=== PATIENT | female | born 1935 | race Caucasian/White ===

== ENCOUNTER 2016-10-05 16:37 | Emergency (ER) | payer OTHER ==
[~2016-10-05] VITALS: Ht 154.9 cm; Wt 58.0 kg
[~2016-10-05 16:37] MED LIST: AMLO-110 PO; ASPI81TA28 PO; ERGO1CAP35 PO; LORA-741 PO; METO50TA16 PO; NTRGSL/4 UT; PANT40TA PO; SIMV20TA2 PO
[2016-10-05 16:50] VITALS: TEMP 36.4; Ht 154.9 cm; Wt 58.0 kg
[2016-10-05] MEDS ORDERED: METOPROLOL TARTRATE 50 MG TAB PO STA (16:53)
[2016-10-05] MEDS ORDERED: LPR25 PO (17:00)
[2016-10-05] MEDS ORDERED: SALI0.6510 NAE (17:00)
[2016-10-05] MEDS ORDERED: ERGO500037 PO (17:00)
--- NOTE | 2016-10-05 17:13 | EMERGENCY ROOM VISIT NOTE ---
History Report prepared by Ab: Henry Driver Under the Supervision of: Dr. Sky Saldana M.D. First contact with patient: 16:43 Chief Complaint: HYPERTENSION Stated Complaint: HTN History of Present Illness The patient is an 80 year old female who presents to the Emergency Room with concerns over a high blood pressure reading that she noticed shortly prior to arrival. The patient was meeting with her primary care physician human resources office assistant today for a routine checkup. At this visit her systolic blood pressure was in the 230's systolic and 110's diastolic. The PA suggested she come to the emergency department immediately. The patient notes that she forgot to take her Ativan this morning before her visit, and that her blood pressure usually rises when she goes to see her physician. She also takes Lisinopril, Metoprol, and Baby Aspirin as a blood thinner. She did take her Lisinopril today and usually takes her Metoprol at 1700. The patient denies any chest pain or shortness of breath. Source of History: patient Onset: Shortly TELEPHONE MESSENGER Position: other (Blood Pressure) Quality: other (Hypertension) Associated Symptoms: No SOB, No chest pain Review of Systems All systems have been listed, reviewed, and are negative other than those previously mentioned. Please see Additional Medical History Sheet. Past Medical & Surgical Medical Problems: (1) Coronary artery disease (2) Dyslipidemia (3) Hypertension (4) Stented coronary artery Surgical Problems: (1) Status post coronary artery stent placement Family History Cancer Heart disease Hypertension Social History Smoking Status: Never Smoker Alcohol Use: none Marital Status: Housing Status: lives alone Occupation Status: retired Current/Historical Medications Scheduled Aspirin (Aspirin Ec), 81 MG PO DAILY Lisinopril (Lisinopril), 20 MG PO DAILY Metoprolol Tartrate (Lopressor), 25 MG PO BID Nitroglycerin (Nitrostat), 0.4 MG UT PRN Pantoprazole (Protonix), 40 MG PO QAM Ranitidine (Zantac), 150 MG PO BID Simvastatin (Zocor), 20 MG PO QPM Scheduled PRN Lorazepam (Ativan), 0.5 MG PO Q6 PRN for Anxiety Allergies Coded Allergies: Metoprolol (Verified Adverse Reaction, Unknown, TOPROL RXN (CHEST HEAVINESS) LOPRESSOR [place], 10/13/15) ABLE TO TAKE LOPRESSOR, EXTENDED RELEASE CAUSED CHEST "HEAVINESS" Can take metoprolol tartrate. Physical Exam Vital Signs Date Time Temp Pulse Resp B/P Pulse Ox O2 Delivery O2 Flow Rate FiO2 10/05/16 19:30 60 16 198/93 100 10/05/16 18:45 58 16 191/75 95 Room Air 10/05/16 18:30 57 16 193/79 10/05/16 18:00 61 16 178/74 10/05/16 17:45 218/90 10/05/16 17:30 57 16 204/78 10/05/16 17:00 70 16 190/76 99 Room Air 10/05/16 16:54 67 10/05/16 16:50 36.4 69 16 215/91 97 Room Air Physical Exam GENERAL: Patient awake, alert, oriented x 3. Patient follows commands. Patient does not appear toxic. Patient is adequately hydrated and well- nourished. SKIN: No erythema, pallor, cyanosis or rash HEENT: Normal head, pupils equal, reactive to light and accommodation. Ears Hearing aid in the right ear, left is normal. Mucous membranes are dry. Oral cavity and posterior pharynx appear normal. Neck: Without adenopathy, no neck vein distention. LUNGS: Clear to auscultation. No wheezes, no rales, no rhonchi. HEART: No murmurs. No gallops. No rubs ABDOMEN: No masses, no rebound, no hepatomegaly or splenomegaly. EXTREMITIES: No signs of trauma. No pedal or pretibial edema. No calf or thigh tenderness. NEUROLOGIC: Cranial nerves II-XII within normal limits. No gross motor sensory function deficits. Medical Decision & Procedures Laboratory Results 10/05/16 17:21 10/05/16 17:21 Test 10/05/16 17:21 Red Blood Count 4.63 M/uL (4.2-5.4) Mean Corpuscular Volume 86.8 fL (80-100) Mean Corpuscular Hemoglobin 30.2 pg (25-34) Mean Corpuscular Hemoglobin Concent 34.8 g/dl (32-36) RDW Standard Deviation 40.9 fL (36.4-46.3) RDW Coefficient of Variation 12.8 % (11.5-14.5) Mean Platelet Volume 10.4 fL (7.4-10.4) Anion Gap 11.0 mmol/L (3-11) Est Creatinine Clear Calc Drug Dose 40.6 ml/min Estimated GFR () 70.4 Estimated GFR (Non- 60.8 BUN/Creatinine Ratio 20.7 (10-20) Calcium Level 9.7 mg/dl (8.5-10.1) Troponin I < 0.015 ng/ml (0-0.045) Laboratory results as stated above per my review. Medications Administered Medications (Trade) Dose Ordered Sig/Zohra Route Start Time Stop Time Status Last Admin Dose Admin Metoprolol Tartrate (Lopressor Tab) 25 mg NOW STAT PO 10/05/16 16:53 10/05/16 16:54 DC 10/05/16 16:58 25 MG Lorazepam (Ativan Tab) 0.5 mg NOW STAT SL 10/05/16 17:49 10/05/16 17:51 DC 10/05/16 17:56 0.5 MG ECG Indication: other (Hypertension) Rate (beats per minute): 69 Rhythm: normal sinus Findings: PAC, no acute ischemic change ED Course 1643: Past medical records reviewed. The patient was evaluated in room C9. A complete history and physical examination was performed. 1652: Ordered Metoprolol 25 mg PO. 1742: I checked on the patient at this time, she is improving and her blood pressure is decreasing. I will order Lorazepam. 1748: Ordered Lorazepam 0.5 mg SL. 2000: Upon reevaluation, the patient appeared to have improvement of her symptoms. I discussed today's findings with her. She verbalized agreement of the treatment plan. The patient was discharged home. Medical Decision Differential Diagnosis includes: Hypertension out of control, anxiety, metabolic abnormality, acute cardiac condition. The patient was seen earlier today by a PA and sent here for elevated blood pressure. The patient appears anxious. Multiple labs and EKG were performed here. Please see above. The patient has no EKG changes. Troponin was not elevated. Electrolytes appear to be within normal range. The patient is anxious. The patient was given 0.5 additional Ativan and she was given her normal dose of metoprolol. The patient's blood pressure did come down without any further intervention. I do not believe she requires further intervention at this time. Impression Primary Impression: Hypertension Scribe Attestation The scribe's documentation has been prepared under my direction and personally reviewed by me in its entirety. I confirm that the note above accurately reflects all work, treatment, procedures, and medical decision making performed by me. Departure Information Dispostion Home / Self-Care Referrals Fannie Sandoval M.D. (MEDICAL) (PCP) Patient Instructions My [facility] Additional Instructions Continue all of your current medications without change. Follow-up with your family physician.
[2016-10-05 17:32] LABS: HEMATOCRIT 40.2 % (37-47); MEAN CELL VOLUME 86.8 fL (80-100); MEAN CORPUSCULAR HEMOGLOBIN 30.2 pg (25-34); MEAN CORPUSCULAR HGB CONC 34.8 g/dl (32-36); MEAN PLATELET VOLUME 10.4 fL (7.4-10.4); PLATELET COUNT 290 K/uL (130-400); RED BLOOD COUNT 4.63 M/uL (4.2-5.4); WHITE BLOOD COUNT 4.91 K/uL (4.8-10.8)
[2016-10-05 17:49] LABS: BLOOD UREA NITROGEN 18 mg/dl (7-18); BUN/CREATININE RATIO 20.7 (10-20); CALCIUM 9.7 mg/dl (8.5-10.1); CARBON DIOXIDE 24 mmol/L (21-32); CHLORIDE 102 mmol/L (98-107); CREATININE 0.89 mg/dl (0.60-1.20); GLUCOSE 97 mg/dl (70-99); POTASSIUM 3.9 mmol/L (3.5-5.1); SODIUM 137 mmol/L (136-145)
[2016-10-05] MEDS ORDERED: LORAZEPAM 0.5 MG TAB SL STA (17:49)
[2016-10-05] MEDS ORDERED: ZNTT/150 PO (18:39)
[2016-10-05 19:30] VITALS: BP 198/93; PULSE 60; O2SAT 100
[2016-10-05] MEDS ORDERED: LSN20 PO (20:12)
== END 2016-10-05 19:31 | disposition home or self-care (01) ==
LOC: EDBD 16:37 → C.EDC 16:38
DX: I10 Essential (primary) hypertension (principal); I25.10 Atherosclerotic heart disease of native coronary artery without angina pectoris; Z79.82 Long term (current) use of aspirin; Z95.5 Presence of coronary angioplasty implant and graft; Z82.49 Family history of ischemic heart disease and other diseases of the circulatory system

== ENCOUNTER 2016-12-15 17:48 | Emergency (ER) | payer OTHER ==
[~2016-12-15] VITALS: Ht 154.9 cm; Wt 57.5 kg
[~2016-12-15 17:48] MED LIST changes: -AMLO-110 PO; -ERGO1CAP35 PO; +LPR25 PO; +LSN20 PO; -METO50TA16 PO; +ZNTT/150 PO
[2016-12-15 17:56] VITALS: BP 207/85; PULSE 61; TEMP 36.4; O2SAT 98; Ht 154.9 cm; Wt 57.5 kg
--- NOTE | 2016-12-15 19:37 | DIAGNOSTIC IMAGING REPORT ---
LUMBAR SPINE 5 VIEWS CLINICAL HISTORY: Chronic low back pain. Left lower extremity radiculopathy. FINDINGS: 5 views of the lumbar spine are obtained. No prior studies are available for comparison at the time of dictation. The skeletal structures are osteopenic. There is no radiographic evidence of acute fracture or malalignment. Vertebral body height and alignment are maintained at the lumbar spine. There is straightening of the lumbar lordosis with reversal centered at L2-L3. There is moderate lumbar levocurvature centered at L3-L4. The transverse and spinous processes are grossly intact. There is no evidence of spondylolysis. Anterior and lateral marginal osteophytes are seen throughout. There is advanced facet arthropathy at the mid to lower lumbar region. Moderate to advanced degenerative disc space narrowing seen at all levels. Degenerative endplate sclerosis is seen at L2-L3 and L3-L4. The visualized bony pelvis appears intact. There is severe constipation. No bowel obstruction is identified. There is moderate atherosclerotic calcification of the abdominal aorta. Cardiomegaly is noted in the lower chest. IMPRESSION: 1. No acute bony abnormality is seen involving the lumbosacral spine. 2. Osteopenia with lumbosacral spondylosis and scoliosis as detailed above. 3. Severe constipation. Dictated: 12/15/2016 7:27 PM Transcribed: 12/15/2016 7:37 PM [email or web address] Electronically signed by: Augustin Zamudio M.D. 12/15/2016 7:40 PM Dictated Date/Time: 12/15/2016 7:27 PM
--- NOTE | 2016-12-15 20:03 | EMERGENCY ROOM VISIT NOTE ---
ED Visit Note First contact with patient: 18:03 CHIEF COMPLAINT: Low back pain 3 weeks HISTORY OF PRESENT ILLNESS: Patient is an 80-year-old white female who presents to the emergency department for evaluation of low back pain radiating into the left leg times almost 3 weeks. She states that about 3 weeks ago she was emptying some overhead cabinets. She was climbing up and down on a chair and lifting and bending and packing up boxes. She did not note pain at that time, and denies any falls or direct trauma to her back. She states that the following day she noted pain in her low left back. It progressively worsens, and began to radiate into her buttocks and in the last 2 days has begun to radiate down her entire left leg to her ankle. She notes that the pain makes it difficult for her to walk. She reports some associated numbness and tingling in her left leg, but denies weakness. She has tried taking a few doses of Tylenol, and tried warm compresses and hot showers. She denies any bowel or bladder incontinence. She reports a history of spine surgery about 2 years ago. She tried calling her doctor 2 days to see if she could take NSAIDs , but could not get through initially. She does have an appointment with her PCP in 2 days. She also spoke with her surgeon in [place] who recommended that she have an MRI, and that he could see her in follow-up. She presently rates her discomfort a 7/10. She has not had any acetaminophen in 8 hours. She denies any abdominal pain. No nausea or vomiting or urinary symptoms. She reports problems with constipation for which she takes milk of magnesia. REVIEW OF SYSTEMS: Review of systems as per HPI. All other systems reviewed were negative. 10 systems reviewed. PMH: Electronic medical records are reviewed and summarized as above/below. See Problem List. SOCIAL HISTORY: Patient lives at home. PHYSICAL EXAM: Vital Signs: Reviewed Nurse's notes. Blood pressure in triage 207/85. CONSTITUTIONAL: Patient is a well-appearing 80-year-old white female who is awake and alert and seated on the chair in no acute distress. There is slight discomfort with position changes. NECK: No bruits auscultated. Supple without lymphadenopathy. No thyromegaly. No meningeal signs. Full active range of motion without discomfort. CARDIOVASCULAR: Regular rate and rhythm, with normal S1 and S2, no murmur or gallop or rub is heard. No carotid bruits auscultated. No JVD. Peripheral pulses easily palpable. RESPIRATORY: Breath sounds equal and clear to auscultation without wheezes, rales, or rhonchi heard. Full and equal chest expansion without accessory muscle use or retractions. ABDOMEN: Bowel sounds are present. Abdomen is soft, nontender and nondistended. INTEGUMENTARY: No lesions or rash, normal skin turgor. LYMPH: No lymphadenopathy. SPINE: Examination of the patient's back does not demonstrate any ecchymosis, abrasions or outward signs of trauma. Well-healed midline lumbar surgical scar. No erythema, increased warmth or induration. Patient has no midline discomfort to palpation over the lumbar spine. She has discomfort low in the left pelvis, over the SI joint. She has pain over the left greater trochanter as well. She has increased pain with range of motion including rotation and flexion. EXTREMITIES: Leg lengths are symmetrical. Negative logroll bilaterally. Normal strength including dorsi-flexion and plantar flexion of the great toes and ankles and flexion and extension of the knees and flexion of the hips. Negative bilateral straight leg raise testing. Hip range of motion is equal and symmetrical bilaterally. Lower extremity DTRs are equal and symmetrical bilaterally. Distal pulses are easily palpable. Sensation light touch is intact over the lower extremities bilaterally. EMERGENCY DEPARTMENT COURSE: The patient was seen and evaluated as above. Her old records are reviewed. Her most recent visits were due to uncontrolled hypertension. The patient is noted to be hypertensive in triage. She reports that she did just take her evening doses of metoprolol 25 mg and Ativan 0.5 mg. Patient reports that in instances where her blood pressure is elevated, she can either take a second dose of lisinopril 20 mg, take a half of her metoprolol 25 mg. After discussing this with the patient, she elected to take her lisinopril 20 mg orally. The patient declined medication for discomfort. Lumbar spine x-rays were obtained, and the findings were noted below. X-ray findings were reviewed with the patient. She has radicular symptoms into her left leg, but does not have any physical exam findings to indicate acute cord compression or cauda equina syndrome. She has some pain over the greater trochanter and over the SI joint. Differential diagnoses entertained includes degenerative disc disease, disc herniation, sacroiliitis, trochanteric bursitis, sciatica, among others. Given her age and comorbidities, patient was encouraged to use acetaminophen. NSAIDs were deferred given her cardiac disease, and likely chronic kidney disease due to her poorly controlled hypertension. Narcotics were felt to be ill advised due to the patient's age, and her underlying constipation. The patient has an appointment with her PCP in 2 days. She will likely require MRI, and has been in touch with her spine surgeon. She was educated on the worrisome signs or symptoms for which she should return to the emergency department. The patient unfortunately left prior to receiving discharge instructions and her blood pressure could not be rechecked prior to discharge. She does have a history of poorly controlled hypertension, and while her blood pressure was elevated in the emergency department, I do not suspect that this indicates a hypertensive emergency. LUMBAR SPINE 5 VIEWS CLINICAL HISTORY: Chronic low back pain. Left lower extremity radiculopathy. FINDINGS: 5 views of the lumbar spine are obtained. No prior studies are available for comparison at the time of dictation. The skeletal structures are osteopenic. There is no radiographic evidence of acute fracture or malalignment. Vertebral body height and alignment are maintained at the lumbar spine. There is straightening of the lumbar lordosis with reversal centered at L2-L3. There is moderate lumbar levocurvature centered at L3-L4. The transverse and spinous processes are grossly intact. There is no evidence of spondylolysis. Anterior and lateral marginal osteophytes are seen throughout. There is advanced facet arthropathy at the mid to lower lumbar region. Moderate to advanced degenerative disc space narrowing seen at all levels. Degenerative endplate sclerosis is seen at L2-L3 and L3-L4. The visualized bony pelvis appears intact. There is severe constipation. No bowel obstruction is identified. There is moderate atherosclerotic calcification of the abdominal aorta. Cardiomegaly is noted in the lower chest. IMPRESSION: 1. No acute bony abnormality is seen involving the lumbosacral spine. 2. Osteopenia with lumbosacral spondylosis and scoliosis as detailed above. 3. Severe constipation. Problem List Medical Problems: (1) Anxiety Status: Chronic (2) Chest pain Status: Resolved (3) Coronary artery disease Status: Chronic (4) Dyslipidemia Status: Chronic (5) Esophageal Reflux Status: Chronic (6) Hypertension Status: Chronic (7) Stented coronary artery Status: Chronic (8) Tachycardia Status: Resolved Surgical Problems: (1) Hx of lumbosacral spine surgery Status: Resolved (2) Percutaneous Translum Coron Angioplasty Status Status: Chronic (3) Status post coronary artery stent placement Permanent Comment: [facility] to LAD and left circ [place] 2005 or 2006 Status: Chronic Current/Historical Medications Scheduled Aspirin (Aspirin Ec), 81 MG PO DAILY Lisinopril (Lisinopril), 20 MG PO DAILY Metoprolol Tartrate (Lopressor), 25 MG PO BID Nitroglycerin (Nitrostat), 0.4 MG UT PRN Pantoprazole (Protonix), 40 MG PO QAM Ranitidine (Zantac), 150 MG PO BID Simvastatin (Zocor), 20 MG PO QPM Scheduled PRN Lorazepam (Ativan), 0.5 MG PO Q6 PRN for Anxiety Allergies Coded Allergies: Metoprolol (Verified Adverse Reaction, Unknown, TOPROL RXN (CHEST HEAVINESS) LOPRESSOR [place], 10/13/15) ABLE TO TAKE LOPRESSOR, EXTENDED RELEASE CAUSED CHEST "HEAVINESS" Can take metoprolol tartrate. Vital Signs Date Time Temp Pulse Resp B/P Pulse Ox O2 Delivery O2 Flow Rate FiO2 12/15/16 17:56 36.4 61 16 207/85 98 Room Air Departure Information Impression Primary Impression: Lumbar back pain with radiculopathy affecting left lower extremity Referrals Namita Adler D.O. (PCP) Patient Instructions My [facility] Additional Instructions Acetaminophen(Tylenol) may be used for fever or pain. Use 1000mg every six hours as needed. Avoid using more than 3000mg in a 24 hour period. This medication can be taken if you need to drive, work, or perform activities which may be dangerous when taking narcotic pain medication. Rest and avoid heavy lifting until your symptoms resolve and then gradually return to full activity. A good rule of thumb is if it hurts your back to perform a certain activity, then it should be avoided until you are healthy again. A heating pad, warm compresses, or a hot shower may help with tight muscles and can be done several times a day as needed. Continue current medications. Return to the ER immediately for any numbness, tingling, severe pain, loss of control of your bowels or bladder, inability to walk, or as needed. Follow up with your primary care physician on Tuesday as scheduled for recheck of your current condition. Follow-up with your surgeon for further care and management.
--- NOTE | 2016-12-15 23:19 | EMERGENCY ROOM VISIT NOTE ---
ED Visit Note First contact with patient: 18:03 I have personally evaluated this patient examined her and reviewed the pertinent labs and data. I have discussed the case with Rin Luna, the physician statistical assistant and agree with the plan. Please refer to the PA note. This patient's has back pain. She has been doing more than usual but has had no trauma. On x-ray there is no fracture but she does have a lot of degenerative change and some curvature. She has nothing to suggest cauda equina syndrome. She has no new deficits. She does have a spine surgeon that she is going to see on Tuesday. She will continue use Tylenol which seems to be working for her. She should not exceed the [id number] recommended dosages and return if: increasing pain, numbness or weakness, change in bowel or bladder function, any new problems or concerns.
== END 2016-12-15 20:15 | disposition home or self-care (01) ==
LOC: C.EDB 17:48 → C.EDD 20:15
DX: M54.16 Radiculopathy, lumbar region (principal); M54.5 Low back pain; G89.29 Other chronic pain; M85.80 Other specified disorders of bone density and structure, unspecified site; K59.00 Constipation, unspecified; I25.10 Atherosclerotic heart disease of native coronary artery without angina pectoris; E78.5 Hyperlipidemia, unspecified; I10 Essential (primary) hypertension; K21.9 Gastro-esophageal reflux disease without esophagitis; F41.9 Anxiety disorder, unspecified; Z98.61 Coronary angioplasty status; Z79.82 Long term (current) use of aspirin; Z79.899 Other long term (current) drug therapy; Z88.8 Allergy status to other drugs, medicaments and biological substances

== ENCOUNTER 2018-02-22 03:13 | Inpatient (IN) | payer OTHER ==
[~2018-02-22] VITALS: Ht 165.1 cm; Wt 57.4 kg
[~2018-02-22 03:13] MED LIST changes: +LISI-726 PO; -LSN20 PO; +RANI150T85 PO; -ZNTT/150 PO
[2018-02-22] MEDS ORDERED: ASPIRIN 81 MG CHEW PO STA (03:16)
[2018-02-22 03:53] LABS: BASO % 0.3 %; BASO ABS # 0.02 K/uL (0-0.2); EOS % 4.3 %; HEMATOCRIT 36.1 % (37-47); HEMOGLOBIN 12.4 g/dL (12.0-16.0); IG# 0.01 K/uL (0.00-0.02); LYMPH % 25.2 %; LYMPH ABS # 1.75 K/uL (1.2-3.4); MEAN CELL VOLUME 87.4 fL (80-100); MEAN CORPUSCULAR HGB CONC 34.3 g/dl (32-36); MEAN PLATELET VOLUME 9.9 fL (7.4-10.4); MONO % 6.9 %; MONO ABS # 0.48 K/uL (0.11-0.59); NEUT % 63.2 %; NEUT ABS # 4.39 K/uL (1.4-6.5); PLATELET COUNT 288 K/uL (130-400); RED CELL DISTRIBUTION WIDTH CV 12.5 % (11.5-14.5); RED CELL DISTRIBUTION WIDTH SD 40.4 fL (36.4-46.3); WHITE BLOOD COUNT 6.95 K/uL (4.8-10.8)
--- NOTE | 2018-02-22 04:08 | EMERGENCY ROOM VISIT NOTE ---
History Report prepared by Ab: Cristofer De La Cruz Under the Supervision of: Dr. Christina Brown M.D. First contact with patient: 03:16 Chief Complaint: CHEST PAIN Stated Complaint: CHEST PAIN History of Present Illness The patient is a 82 year old female who presents to the Emergency Room with complaints of pain of the back, right abdomen, and epigastric region. The patient reports that she was feeling constipated since around 3 days ago and took milk of magnesia. At around 0130, she states that the pain started in her back and then radiated toward the right abdomen and epigastric region. She describes her pain as a feeling of pressure. She rates her current pain as 3/10 in severity and reports that her back pain is resolved. She denies shoulder pain. She states that for dinner she had chicken, baked potato, and cantaloupe. She reports that she had aspirin and nitroglycerin prior to arrival that improved her symptoms from 5/10 to 3/10. The patient denies history of these symptoms. She states that her PCP is Dr. Adler. She notes that she has stents and reports that she sees Vivek Boles PA-C: Cardiology. The patient reports that she still has her gallbladder. Source of History: patient Onset: 0130 Position: abdomen Symptom Intensity: 3/10 Quality: pressure Modifying Factors (Relieving): other (aspirin and nitroglycerin) Note: denies shoulder pain Review of Systems See HPI for pertinent positives & negatives. A total of 10 systems reviewed and were otherwise negative. Past Medical & Surgical Medical Problems: (1) Anxiety (2) Chest pain (3) Coronary artery disease (4) Dyslipidemia (5) Esophageal Reflux (6) Hypertension (7) Stented coronary artery (8) Tachycardia Surgical Problems: (1) Hx of lumbosacral spine surgery (2) Percutaneous Translum Coron Angioplasty Status (3) Status post coronary artery stent placement Family History Cancer Heart disease Hypertension Social History Smoking Status: Never Smoker Alcohol Use: none Marital Status: Housing Status: lives alone Occupation Status: retired Current/Historical Medications Scheduled Aspirin (Aspirin Ec), 81 MG PO DAILY Lisinopril (Lisinopril), 20 MG PO DAILY Metoprolol Tartrate (Lopressor), 25 MG PO BID Nitroglycerin (Nitrostat), 0.4 MG UT PRN Pantoprazole (Protonix), 40 MG PO QAM Ranitidine (Zantac), 150 MG PO BID Simvastatin (Zocor), 20 MG PO QPM Scheduled PRN Lorazepam (Ativan), 0.5 MG PO Q6 PRN for Anxiety Allergies Coded Allergies: Metoprolol (Verified Adverse Reaction, Unknown, TOPROL RXN (CHEST HEAVINESS) LOPRESSOR [place], 02/22/18) ABLE TO TAKE LOPRESSOR, EXTENDED RELEASE CAUSED CHEST "HEAVINESS" Can take metoprolol tartrate. Physical Exam Vital Signs Date Time Temp Pulse Resp B/P (MAP) Pulse Ox O2 Delivery O2 Flow Rate FiO2 02/22/18 07:11 65 14 176/75 100 Room Air 02/22/18 05:33 62 14 02/22/18 05:31 164/71 02/22/18 05:28 59 12 98 02/22/18 05:23 62 15 99 02/22/18 05:08 60 16 98 02/22/18 05:04 63 16 134/68 100 Room Air 02/22/18 05:03 61 12 100 02/22/18 05:01 134/68 02/22/18 04:58 57 12 99 02/22/18 04:55 147/65 02/22/18 04:08 58 12 99 02/22/18 04:03 60 12 99 02/22/18 04:02 167/69 02/22/18 03:58 65 28 99 02/22/18 03:53 60 16 99 02/22/18 03:48 62 15 97 02/22/18 03:43 63 17 98 02/22/18 03:38 64 10 97 02/22/18 03:34 63 02/22/18 03:33 64 16 99 02/22/18 03:31 160/77 02/22/18 03:22 96 Room Air 02/22/18 03:22 96 Room Air 02/22/18 03:22 36.8 66 18 181/66 96 Room Air 02/22/18 03:21 181/66 Physical Exam Vital signs reviewed. General: Well-appearing female, in no significant distress. HEENT: No scleral icterus, PERRLA, neck supple. Atraumatic. Cardiovascular: Regular rate and rhythm, no extra sounds. Systolic murmur. Pulmonary: Clear to auscultation bilaterally, normal work of breathing. Abdomen: Soft, nondistended, positive bowel sounds. Mild tenderness to the right upper quadrant and epigastric region. Musculoskeletal: Atraumatic, no peripheral edema. Neurologic: Patient awake alert and oriented x 3, full strength in all 4 extremities. Cranial nerves 2 through 12 grossly intact. Skin: Warm, dry, no rash Medical Decision & Procedures ER Provider Diagnostic Interpretation: Radiology results as stated below per my review and radiologist interpretation: Ultrasound right upper quadrant TECHNIQUE: real time imaging of the right upper quadrant is performed in transverse and longitudinal projections. COMPARISON FINDINGS: the liver measures 11.9 cm slightly heterogeneous in appearance. No foca mass lesions are seen. Normal hepatopetal flow is demonstrated in the main portal vein. The gallbladder is distended measuring 11.1 cm. There is sludge and stones noted in the gallbladder somewhat mobile within the neck. Gallbladder wall measures 2.8 mm. No pericholecystic fluid is identified. No gallbladder wall thickening or pericholecystic fluid is present. Common duct is within normal limits. No filling defect is demonstrated. The visualized portions of the pancreas are unremarkable. No free fluid is identified. Visualized segments of the aorta are unremarkable. The right kidney is unremarkable in size and configuration. Note is made of prominent renal pelvis. No evidence for renal calculus. IMPRESSION: Cholelithiasis with edamatous appearance to the gallbladder wall but only measures 2.8 mm. There may be some stones lodged in the neck of the gallbladder. No evidence of pericholecystic fluid. Gallbladder is distended. Radiologist: Yobani Gomez MD Study ready at 05:03 and initial results transmitted at 05:39. Chest X-ray per my review reveals right lower lung field interstitial prominence. Otherwise normal mediastinal silhouette. No focal lung consolidation. No failure Laboratory Results 02/22/18 03:35 Red Blood Count 4.13, Mean Corpuscular Volume 87.4, Mean Corpuscular Hemoglobin 30.0, Mean Corpuscular Hemoglobin Concent 34.3, Mean Platelet Volume 9.9, Neutrophils (%) (Auto) 63.2, Lymphocytes (%) (Auto) 25.2, Monocytes (%) (Auto) 6.9, Eosinophils (%) (Auto) 4.3, Basophils (%) (Auto) 0.3, Neutrophils # (Auto) 4.39, Lymphocytes # (Auto) 1.75, Monocytes # (Auto) 0.48, Eosinophils # (Auto) 0.30, Basophils # (Auto) 0.02 02/22/18 03:35 Test 02/22/18 03:35 02/22/18 06:25 02/22/18 07:05 White Blood Count 6.95 K/uL (4.8-10.8) Red Blood Count 4.13 M/uL (4.2-5.4) Hemoglobin 12.4 g/dL (12.0-16.0) Hematocrit 36.1 % (37-47) Mean Corpuscular Volume 87.4 fL (80-100) Mean Corpuscular Hemoglobin 30.0 pg (25-34) Mean Corpuscular Hemoglobin Concent 34.3 g/dl (32-36) Platelet Count 288 K/uL (130-400) Mean Platelet Volume 9.9 fL (7.4-10.4) Neutrophils (%) (Auto) 63.2 % Lymphocytes (%) (Auto) 25.2 % Monocytes (%) (Auto) 6.9 % Eosinophils (%) (Auto) 4.3 % Basophils (%) (Auto) 0.3 % Neutrophils # (Auto) 4.39 K/uL (1.4-6.5) Lymphocytes # (Auto) 1.75 K/uL (1.2-3.4) Monocytes # (Auto) 0.48 K/uL (0.11-0.59) Eosinophils # (Auto) 0.30 K/uL (0-0.5) Basophils # (Auto) 0.02 K/uL (0-0.2) RDW Standard Deviation 40.4 fL (36.4-46.3) RDW Coefficient of Variation 12.5 % (11.5-14.5) Immature Granulocyte % (Auto) 0.1 % Immature Granulocyte # (Auto) 0.01 K/uL (0.00-0.02) Anion Gap 7.0 mmol/L (3-11) Est Creatinine Clear Calc Drug Dose 38.0 ml/min Estimated GFR () 59.6 Estimated GFR (Non- 51.4 BUN/Creatinine Ratio 20.6 (10-20) Calcium Level 8.8 mg/dl (8.5-10.1) Total Bilirubin 0.4 mg/dl (0.2-1) Direct Bilirubin 0.1 mg/dl (0-0.2) Aspartate Amino Transf (AST/SGOT) 13 U/L (15-37) Alanine Aminotransferase (ALT/SGPT) 16 U/L (12-78) Alkaline Phosphatase 63 U/L (45-117) Total Protein 7.2 gm/dl (6.4-8.2) Albumin 3.5 gm/dl (3.4-5.0) Urine Color YELLOW Urine Appearance CLEAR (CLEAR) Urine pH >= 9.0 (4.5-7.5) Urine Specific [place] 1.017 (1.000-1.030) Urine Protein NEG (NEG) Urine Glucose (UA) NEG (NEG) Urine Ketones NEG (NEG) Urine Occult Blood NEG (NEG) Urine Nitrite NEG (NEG) Urine Bilirubin NEG (NEG) Urine Urobilinogen NEG (NEG) Urine Leukocyte Esterase TRACE (NEG) Urine WBC (Auto) 1-5 /hpf (0-5) Urine RBC (Auto) 0-4 /hpf (0-4) Urine Hyaline Casts (Auto) 0 /lpf (0-5) Urine Epithelial Cells (Auto) 20-30 /lpf (0-5) Urine Bacteria (Auto) NEG (NEG) Laboratory results per my review. ECG Per My Interpretation Indication: abdominal pain Rate (beats per minute): 64 Rhythm: normal sinus Findings: no ectopy, other (possible previous anterior and inferior infarct. No acute ST elevation.) ED Course 0332: Past medical records reviewed. The patient was evaluated in room B7. A complete history and physical examination was performed. 0609: I spoke with Cornelio Campos: General Surgery PA for Dr. Elaine. 0618: Cornelio Campos: General Surgery PA will reevaluate the patient and will discuss the disposition with Dr. Elaine and the patient. 0705: I reevaluated the patient. She complained of pain moving into her chest. Repeat troponin ordered and PPI/H2 reynold ordered Medical Decision Differential diagnosis: Etiologies such as appendicitis, diverticulitis, PUD, biliary pathology, UTI, pancreatitis, obstruction, mesenteric ischemia, aortic pathology, infections, inflammatory bowel disease, renal colic, as well as others were entertained. Medication Reconcilliation Current Medication List: was personally reviewed by me Blood Pressure Screening Patient's blood pressure: Elevated blood pressure Blood pressure disposition: Elevated BP felt to be situational Consults Time Called: [phone] Consulting Physician: Cornelio Campos: General Surgery LUDMILA Returned Call: [phone] Cornelio Campos: General Surgery PA will reevaluate the patient and will discuss the disposition with Dr. Elaine and the patient. Impression Primary Impression: Symptomatic cholelithiasis Scribe Attestation The scribe's documentation has been prepared under my direction and personally reviewed by me in its entirety. I confirm that the note above accurately reflects all work, treatment, procedures, and medical decision making performed by me. Departure Information Dispostion Being Evaluated By Surgeon Namita Mancuso D.O. (PCP) Patient Instructions My [facility]
[2018-02-22 04:23] LABS: ALBUMIN 3.5 gm/dl (3.4-5.0); ALKALINE PHOSPHATASE 63 U/L (45-117); ALT/SGPT 16 U/L (12-78); AST/SGOT 13 U/L (15-37); BLOOD UREA NITROGEN 21 mg/dl (7-18); CALCIUM 8.8 mg/dl (8.5-10.1); CARBON DIOXIDE 26 mmol/L (21-32); CREATININE 1.01 mg/dl (0.60-1.20); GLUCOSE 108 mg/dl (70-99); POTASSIUM 3.8 mmol/L (3.5-5.1); SODIUM 132 mmol/L (136-145); TOTAL PROTEIN 7.2 gm/dl (6.4-8.2)
--- NOTE | 2018-02-22 06:50 | DIAGNOSTIC IMAGING REPORT ---
GALLBLADDER-ABD LIMITED CLINICAL HISTORY: RUQ pain pain. Nausea. TECHNIQUE: Ultrasound COMPARISON STUDY: None FINDINGS: Examination of gallstones and sludge in the gallbladder lumen., Wall 2.8 mm a trace amount of wall edema. No significant pericholecystic fluid. Tortuous and somewhat ectatic, bile duct measuring 4 to 6 mm. Liver is uniform throughout. Right kidney is negative for hydronephrosis. IMPRESSION: 1. Combination of gallstones and sludge within the gallbladder lumen. 2. Slight gallbladder wall edema although there is no significant gallbladder wall thickening. 3. Normal caliber bile ducts. The above report was generated using voice recognition software. It may contain grammatical, syntax or spelling errors. Electronically signed by: Vivek Taveras M.D. 02/22/2018 6:49 AM Dictated Date/Time: 02/22/2018 6:46 AM
--- NOTE | 2018-02-22 06:58 | DIAGNOSTIC IMAGING REPORT ---
CHEST ONE VIEW PORTABLE CLINICAL HISTORY: Atypical chest pain COMPARISON STUDY: 10/13/2015 FINDINGS: The cardiac and mediastinal contours are normal. There is no evidence of focal pulmonary consolidation. There is no evidence of failure. No pleural effusions are visualized.[ Coronary stents are visualized. IMPRESSION: No active disease in the chest. Electronically signed by: Chase Canchola M.D. 02/22/2018 6:57 AM Dictated Date/Time: 02/22/2018 6:56 AM
[2018-02-22] MEDS ORDERED: RANITIDINE HCL 50 MG/100 ML D5W IV STA (07:05)
[2018-02-22] MEDS ORDERED: SODIUM CHLORIDE 0.9% 1000ML 1,000 ML IV STA (07:05)
[2018-02-22] MEDS ORDERED: METOPROLOL TARTRATE 1 MG/ML VIAL IV STA (07:05)
[2018-02-22 07:15] VITALS: O2SAT 100; Ht 165.1 cm; Wt 57.4 kg
[2018-02-22] MEDS ORDERED: PANTOprazole INJ 40 MG in SYRINGE 0 ML IV ONE (07:15)
[2018-02-22] MEDS ORDERED: METOPROLOL TARTRATE 1 MG/ML VIAL ONE (07:23)
--- NOTE | 2018-02-22 07:58 | Surgery Consultation ---
Consultation Date of Consultation: Feb 22, 2018. Attending Physician: Reason for Consultation: Abdominal pain History of Present Illness Patient is a 82F w/ PMHx of GERD, HTN, HLD, Cardic stenting x2 (2005) who presented to the ED early this AM for right back pain wrapping around to her RUQ and Epigastric areas. Reports last night she ate dinner and then took milk of magnesia around 10pm. She notes she could not sleep and then developed her abdominal pain around 0130. Denies fever, chills, recent illness. Denies nausea , vomiting. of note she reports she has been constipated the past few days. Urinating without issue. PSHx significant for left oophorectomy at age 39 and total abdominal hysterectomy at age 41. Denies any other abdominal surgeries in the past. Denies any problems with anesthesia in the past. She does take Aspirin 81mg daily. Denies use of other blood thinning or anticoagulant medications. WBC WNL. RUQ U/S shows stones, sludge, wall 2.8mm w/ trace edema. No pericholecystic fluid or inflammatory changes. Past Medical/Surgical History Medical Problems: (1) Anxiety Status: Chronic (2) Coronary artery disease Status: Chronic (3) Dyslipidemia Status: Chronic (4) Esophageal Reflux Status: Chronic (5) Hypertension Status: Chronic (6) Lumbar back pain with radiculopathy affecting left lower extremity Status: Acute (7) Stented coronary artery Status: Chronic (8) Symptomatic cholelithiasis Status: Acute Surgical Problems: (1) Percutaneous Translum Coron Angioplasty Status Status: Chronic (2) Status post coronary artery stent placement Permanent Comment: [facility] to LAD and left circ [place] 2005 or 2006 Status: Chronic Family History Cancer Heart disease Hypertension Social History Smoking Status: Never Smoker Marital Status: Housing Status: lives alone Occupation Status: retired Allergies Coded Allergies: Metoprolol (Verified Adverse Reaction, Unknown, TOPROL RXN (CHEST HEAVINESS) LOPRESSOR [place], 02/22/18) ABLE TO TAKE LOPRESSOR, EXTENDED RELEASE CAUSED CHEST "HEAVINESS" Can take metoprolol tartrate. Home Medications Scheduled Aspirin (Aspirin Ec), 81 MG PO DAILY Lisinopril (Lisinopril), 20 MG PO DAILY Metoprolol Tartrate (Lopressor), 25 MG PO BID Nitroglycerin (Nitrostat), 0.4 MG UT PRN Pantoprazole (Protonix), 40 MG PO QAM Ranitidine (Zantac), 150 MG PO BID Simvastatin (Zocor), 20 MG PO QPM Scheduled PRN Lorazepam (Ativan), 0.5 MG PO Q6 PRN for Anxiety Review of Systems Constitutional: No fever, No chills Respiratory: No shortness of breath Abdomen: + pain (Upper abodominal pain), + constipation, + problem reported ( Reports fullness and bloating in her epigastic area radiating into the center of her chest), No nausea, No vomiting, No diarrhea Genitourinary - Female: No dysuria, No hematuria Integumentary: No new/changing skin lesions, No color change Physical Exam Date Time Temp Pulse Resp B/P (MAP) Pulse Ox O2 Delivery O2 Flow Rate FiO2 02/22/18 05:33 62 14 02/22/18 05:31 164/71 02/22/18 05:28 59 12 98 02/22/18 05:23 62 15 99 02/22/18 05:08 60 16 98 02/22/18 05:04 63 16 134/68 100 Room Air 02/22/18 05:03 61 12 100 02/22/18 05:01 134/68 02/22/18 04:58 57 12 99 02/22/18 04:55 147/65 02/22/18 04:08 58 12 99 02/22/18 04:03 60 12 99 02/22/18 04:02 167/69 02/22/18 03:58 65 28 99 02/22/18 03:53 60 16 99 02/22/18 03:48 62 15 97 02/22/18 03:43 63 17 98 02/22/18 03:38 64 10 97 02/22/18 03:34 63 02/22/18 03:33 64 16 99 02/22/18 03:31 160/77 02/22/18 03:22 96 Room Air 02/22/18 03:22 96 Room Air 02/22/18 03:22 36.8 66 18 181/66 96 Room Air 02/22/18 03:21 181/66 General Appearance: WD/WN, no apparent distress Head: atraumatic ENT: hearing grossly normal Respiratory/Chest: no respiratory distress Abdomen/GI: non tender, soft, no organomegaly, no pulsatile mass Neurologic/Psych: alert, normal mood/affect, oriented x 3 Skin: normal color, warm/dry Laboratory Results Last 24 Hours Test 02/22/18 03:35 02/22/18 06:25 White Blood Count 6.95 K/uL Red Blood Count 4.13 M/uL Hemoglobin 12.4 g/dL Hematocrit 36.1 % Mean Corpuscular Volume 87.4 fL Mean Corpuscular Hemoglobin 30.0 pg Mean Corpuscular Hemoglobin Concent 34.3 g/dl Platelet Count 288 K/uL Mean Platelet Volume 9.9 fL Neutrophils (%) (Auto) 63.2 % Lymphocytes (%) (Auto) 25.2 % Monocytes (%) (Auto) 6.9 % Eosinophils (%) (Auto) 4.3 % Basophils (%) (Auto) 0.3 % Neutrophils # (Auto) 4.39 K/uL Lymphocytes # (Auto) 1.75 K/uL Monocytes # (Auto) 0.48 K/uL Eosinophils # (Auto) 0.30 K/uL Basophils # (Auto) 0.02 K/uL RDW Standard Deviation 40.4 fL RDW Coefficient of Variation 12.5 % Immature Granulocyte % (Auto) 0.1 % Immature Granulocyte # (Auto) 0.01 K/uL Sodium Level 132 mmol/L Potassium Level 3.8 mmol/L Chloride Level 99 mmol/L Carbon Dioxide Level 26 mmol/L Anion Gap 7.0 mmol/L Blood Urea Nitrogen 21 mg/dl Creatinine 1.01 mg/dl Est Creatinine Clear Calc Drug Dose 38.0 ml/min Estimated GFR () 59.6 Estimated GFR (Non- 51.4 BUN/Creatinine Ratio 20.6 Random Glucose 108 mg/dl Calcium Level 8.8 mg/dl Total Bilirubin 0.4 mg/dl Direct Bilirubin 0.1 mg/dl Aspartate Amino Transf (AST/SGOT) 13 U/L Alanine Aminotransferase (ALT/SGPT) 16 U/L Alkaline Phosphatase 63 U/L Troponin I < 0.015 ng/ml Total Protein 7.2 gm/dl Albumin 3.5 gm/dl Urine Color YELLOW Urine Appearance CLEAR Urine pH >= 9.0 Urine Specific [place] 1.017 Urine Protein NEG Urine Glucose (UA) NEG Urine Ketones NEG Urine Occult Blood NEG Urine Nitrite NEG Urine Bilirubin NEG Urine Urobilinogen NEG Urine Leukocyte Esterase TRACE Urine WBC (Auto) 1-5 /hpf Urine RBC (Auto) 0-4 /hpf Urine Hyaline Casts (Auto) 0 /lpf Urine Epithelial Cells (Auto) 20-30 /lpf Urine Bacteria (Auto) NEG Assessment & Plan Cholelithiasis, biliary colic? Reflux? Cardiac? Abdomen soft, non-distended, non-tender. afebrile. Vitals stable. No N/V at this time. No pain at this time. No acute surgical intervention indicated at this time. Stones and sludge in gallbladder, no evidence of acute cholecystitis at this time. Unclear as to whether symptoms are related to her gallbladder, GERD or less likely cardiac in origin (although patient notes this feels similar to when she had her heart issues) Reasonable to consider D/C and f/u as an outpatient to discuss gallbladder surgical options vs. admit to medicine w/ HIDA scan, cardiac workup and poss lap markus tomorrow. Dr. Elaine in to see and examine patient. Findings discussed with Dr. Brown. Please contact with questions or concerns.
[2018-02-22 10:50] VITALS: BP 200/76; PULSE 63; TEMP 36.6; O2SAT 97
[2018-02-22] MEDS ORDERED: LORAZEPAM 0.5 MG TAB ONE (11:18)
[2018-02-22] MEDS: ACETAMINOPHEN 325 MG TAB PO PRN (11:20)
[2018-02-22] MEDS ORDERED: PERFLUTREN LIPID MICROSPHERE (DEFINITY) IV ONE (11:58)
[2018-02-22] MEDS: LISINOPRIL 20 MG TAB PO SCH ×2 (12:00→16:00)
--- NOTE | 2018-02-22 13:37 | History and Physical ---
History & Physical Date & Time of Service: Feb 22, 2018 ~ 0815 Chief Complaint: Abdominal Pain Primary Care Physician: Namita Adler D.O. History of Present Illness 82-year-old female who presents to the ED with abdominal pain. Patient reports she was woken in the middle the night with right-sided back pain that was radiating around to her right upper quadrant of her abdomen. Patient then reports the pain started to radiate up into her chest. She reports she took 3 baby aspirin and a nitroglycerin tablet at home and the pain did seem to improve. She then called EMS and was transferred to the ED for further evaluation. Patient rates the pain at its worst a #7/10, she currently rates her pain #4/10. Patient reports she otherwise has been feeling well recently. She reports she was cleaning her house yesterday and hanging curtains. She reports she climbs a flight of stairs routinely without getting chest pain or shortness of breath. She denies fevers and chills. No nausea or vomiting. She denies lightheadedness, dizziness, diaphoresis, syncopal events. She denies any urinary symptoms. In the ED, patient underwent a right upper quadrant ultrasound showing cholelithiasis and gallbladder sludge. She is afebrile without leukocytosis. In the ED, she was given IVF, IV Protonix, IV ranitidine, and IV metoprolol. Past Medical/Surgical History Medical Problems: (1) Anxiety Status: Chronic (2) Anxiety Status: Chronic (3) CAD (coronary artery disease) Permanent Comment: 2005-S/P WALDO to LAD and left circumflex Status: Chronic (4) CKD (chronic kidney disease), stage III Status: Chronic (5) Coronary artery disease Status: Chronic (6) Dyslipidemia Status: Chronic (7) Dyslipidemia Status: Chronic (8) Esophageal Reflux Status: Chronic (9) GERD (gastroesophageal reflux disease) Status: Chronic (10) Hypertension Status: Chronic (11) Hypertension Status: Chronic (12) Stented coronary artery Status: Chronic Surgical Problems: (1) H/O oophorectomy Status: Chronic (2) H/O varicose vein stripping Status: Chronic (3) History of hysterectomy Status: Chronic (4) Hx of lumbosacral spine surgery Status: Resolved (5) Percutaneous Translum Coron Angioplasty Status Status: Chronic (6) Status post coronary artery stent placement Permanent Comment: WALDO to LAD and left circ [place] 2005 or 2006 Status: Chronic Family History Noncontributory secondary to patient's advanced age Social History Smoking Status: Never Smoker Alcohol Use: none Immunizations History of Pneumococcal: Yes Pneumococcal Date: Feb 15, 2006 Allergies Coded Allergies: Metoprolol (Verified Adverse Reaction, Unknown, TOPROL RXN (CHEST HEAVINESS) LOPRESSOR [place], 02/22/18) ABLE TO TAKE LOPRESSOR, EXTENDED RELEASE CAUSED CHEST "HEAVINESS" Can take metoprolol tartrate. Home Medications Scheduled Aspirin (Aspirin Ec), 81 MG PO DAILY Lisinopril (Lisinopril), 20 MG PO DAILY Metoprolol Tartrate (Lopressor), 25 MG PO BID Nitroglycerin (Nitrostat), 0.4 MG UT PRN Pantoprazole (Protonix), 40 MG PO QAM Ranitidine (Zantac), 150 MG PO BID Simvastatin (Zocor), 20 MG PO QPM Scheduled PRN Lorazepam (Ativan), 0.5 MG PO Q6 PRN for Anxiety Review of Systems ROS per HPI, all other systems reviewed and negative Physical Exam Vital Signs Date Time Temp Pulse Resp B/P (MAP) Pulse Ox O2 Delivery O2 Flow Rate FiO2 02/22/18 09:36 106 16 165/64 100 Room Air 02/22/18 08:30 98 16 171/83 99 Room Air 02/22/18 07:34 61 02/22/18 07:29 69 166/65 02/22/18 07:15 100 Room Air 02/22/18 07:11 65 14 176/75 100 Room Air 02/22/18 05:33 62 14 02/22/18 05:31 164/71 02/22/18 05:28 59 12 98 02/22/18 05:23 62 15 99 02/22/18 05:08 60 16 98 02/22/18 05:04 63 16 134/68 100 Room Air 02/22/18 05:03 61 12 100 02/22/18 05:01 134/68 02/22/18 04:58 57 12 99 02/22/18 04:55 147/65 02/22/18 04:08 58 12 99 02/22/18 04:03 60 12 99 02/22/18 04:02 167/69 02/22/18 03:58 65 28 99 02/22/18 03:53 60 16 99 02/22/18 03:48 62 15 97 02/22/18 03:43 63 17 98 02/22/18 03:38 64 10 97 02/22/18 03:34 63 02/22/18 03:33 64 16 99 02/22/18 03:31 160/77 02/22/18 03:22 96 Room Air 02/22/18 03:22 96 Room Air 02/22/18 03:22 36.8 66 18 181/66 96 Room Air 02/22/18 03:21 181/ General Appearance: WD/WN, no apparent distress Head: normocephalic, atraumatic Eyes: normal inspection, EOMI, sclerae normal ENT: hearing grossly normal, + pertinent finding (Mucous membranes moist) Neck: supple, no JVD, trachea midline Respiratory/Chest: lungs clear, normal breath sounds, no respiratory distress Cardiovascular: regular rate, rhythm, no edema, normal peripheral pulses Abdomen/GI: normal bowel sounds, non tender, soft, no organomegaly Extremities/Musculoskelatal: normal inspection, no calf tenderness, normal capillary refill Neurologic/Psych: no motor/sensory deficits, alert, normal mood/affect, oriented x 3 Skin: normal color, warm/dry Diagnostics Laboratory Results Results Past 24 Hours Test 02/22/18 03:35 02/22/18 06:25 02/22/18 07:24 02/22/18 13:00 Range/Units White Blood Count 6.95 4.8-10.8 K/uL Red Blood Count 4.13 4.2-5.4 M/uL Hemoglobin 12.4 12.0-16.0 g/dL Hematocrit 36.1 37-47 % Mean Corpuscular Volume 87.4 80-100 fL Mean Corpuscular Hemoglobin 30.0 25-34 pg Mean Corpuscular Hemoglobin Concent 34.3 32-36 g/dl Platelet Count 288 130-400 K/uL Mean Platelet Volume 9.9 7.4-10.4 fL Neutrophils (%) (Auto) 63.2 % Lymphocytes (%) (Auto) 25.2 % Monocytes (%) (Auto) 6.9 % Eosinophils (%) (Auto) 4.3 % Basophils (%) (Auto) 0.3 % Neutrophils # (Auto) 4.39 1.4-6.5 K/uL Lymphocytes # (Auto) 1.75 1.2-3.4 K/uL Monocytes # (Auto) 0.48 0.11-0.59 K/uL Eosinophils # (Auto) 0.30 0-0.5 K/uL Basophils # (Auto) 0.02 0-0.2 K/uL RDW Standard Deviation 40.4 36.4-46.3 fL RDW Coefficient of Variation 12.5 11.5-14.5 % Immature Granulocyte % (Auto) 0.1 % Immature Granulocyte # (Auto) 0.01 0.00-0.02 K/uL Sodium Level 132 136-145 mmol/L Potassium Level 3.8 3.5-5.1 mmol/L Chloride Level 99 98-107 mmol/L Carbon Dioxide Level 26 21-32 mmol/L Anion Gap 7.0 3-11 mmol/L Blood Urea Nitrogen 21 7-18 mg/dl Creatinine 1.01 0.60-1.20 mg/dl Est Creatinine Clear Calc Drug Dose 38.0 ml/min Estimated GFR () 59.6 Estimated GFR (Non- 51.4 BUN/Creatinine Ratio 20.6 10-20 Random Glucose 108 70-99 mg/dl Calcium Level 8.8 8.5-10.1 mg/dl Total Bilirubin 0.4 0.2-1 mg/dl Direct Bilirubin 0.1 0-0.2 mg/dl Aspartate Amino Transf (AST/SGOT) 13 15-37 U/L Alanine Aminotransferase (ALT/SGPT) 16 12-78 U/L Alkaline Phosphatase 63 45-117 U/L Troponin I < 0.015 < 0.015 0-0.045 ng/ml Total Protein 7.2 6.4-8.2 gm/dl Albumin 3.5 3.4-5.0 gm/dl Urine Color YELLOW Urine Appearance CLEAR CLEAR Urine pH >= 9.0 4.5-7.5 Urine Specific [place] 1.017 1.000-1.030 Urine Protein NEG NEG Urine Glucose (UA) NEG NEG Urine Ketones NEG NEG Urine Occult Blood NEG NEG Urine Nitrite NEG NEG Urine Bilirubin NEG NEG Urine Urobilinogen NEG NEG Urine Leukocyte Esterase TRACE NEG Urine WBC (Auto) 1-5 0-5 /hpf Urine RBC (Auto) 0-4 0-4 /hpf Urine Hyaline Casts (Auto) 0 0-5 /lpf Urine Epithelial Cells (Auto) 20-30 0-5 /lpf Urine Bacteria (Auto) NEG NEG Diagnostic Radiology CXR IMPRESSION: No active disease in the chest. RUQ US IMPRESSION: 1. Combination of gallstones and sludge within the gallbladder lumen. 2. Slight gallbladder wall edema although there is no significant gallbladder wall thickening. 3. Normal caliber bile ducts. Impression Assessment and Plan ABDOMINAL PAIN, ? BILIARY COLIC -Admit to telemetry -Patient presenting from home where she presented with right upper quadrant abdominal pain that was radiating up into her chest that woke her from sleep last night; in the ED, RUQ US showing cholelithiasis and gallbladder sludge -No signs of acute cholecystitis; currently afebrile, no leukocytosis -LFTs WNL -Evaluated by general surgery in the ED who recommends HIDA scan; possible lap markus -Pain and nausea control CHEST PAIN, HISTORY OF CAD -Chest pain likely GI in nature -Does not seem to be patient's anginal equivalent -Initial troponin negative, EKG without acute ST changes -Continue to cycle cardiac enzymes, check resting echocardiogram -If troponins remain negative and echocardiogram does not show acute changes, patient can proceed to the OR and be considered an acceptable risk HYPERTENSION -BP mildly elevated, likely due to pain -Received metoprolol 5 mg IV in the ED -Continue home doses of lisinopril and oral metoprolol for now, and reassess once pain is under control GERD -Continue PPI and H2 reynold DVT PROPHYLAXIS -SCDs in the event patient needs invasive procedure CODE STATUS -Patient is a full code as per discussion with her. DISPOSITION -In my clinical judgment this beneficiary meets acute admission criteria, established by [facility], that includes being hospitalized through two midnights. Attending Addendum: The patient was seen and examined to telemetry unit She has history of CAD and complaining of right upper quadrant/epigastric pain She was noted to have acute cholecystitis and her EKG and troponin were unremarkable Complains to have some pain in the right during my examination OBJECTIVE: Vital Signs-as noted below Exam: General-no aberrant distress except pain in right upper quadrant Some drowsiness from administration of Marcaine Eyes-normal ENT-normal Neck-supple Lungs-clear to auscultate bilaterally Heart-regular, no murmur Abdomen-soft, tender right upper quadrant, Luis sign positive, bowel sounds present Extremities-negative for any edema Neuro-alert awake and oriented 3, Generally weak Labs and Imaging studies were reviewed. Agree with the assessment and plan as mentioned above. Dr Kavya Aguilar Advanced Directives Existing Living Will: No Existing Power of Rider Ticket Worker: No Resuscitation Status VTE Prophylaxis Will order VTE Prophylaxis: Yes
[2018-02-22] MEDS ORDERED: MoRPHine SULFATE 4 MG/ML 1 ML CARP\\VIAL ONE (13:51)
[2018-02-22] MEDS ORDERED: NURSING VERBAL MED ORDER ONE (14:15)
--- NOTE | 2018-02-22 14:41 | DIAGNOSTIC IMAGING REPORT ---
HEPATOBILIARY HIDA IMAGING HISTORY: Pain abdominal pain COMPARISON: None. TECHNIQUE: Immediately following the intravenous administration of 5.4 mCi Tc-99m Choletec, dynamic anterior abdominal imaging was performed. FINDINGS: Uniform hepatic activity is noted. Mild biliary ductal prominence is present. Gallbladder is not identified at 60 minutes. 2 mg of morphine were administered. This does not definitively demonstrate gallbladder with the possibility of overlying bowel activity obscuring gallbladder detail. IMPRESSION: High suspicion for acute cholecystitis. The above report was generated using voice recognition software. It may contain grammatical, syntax or spelling errors. Electronically signed by: Vivek Taveras M.D. 02/22/2018 2:40 PM Dictated Date/Time: 02/22/2018 2:36 PM
[2018-02-22] MEDS: ONDANSETRON INJ 2 MG/ML 2 ML VIAL IV PRN ×2 (14:59→21:28)
[2018-02-22] MEDS ORDERED: HYDROmorphone INJ 0.5 MG/0.5 ML SYR IV ONE (15:00)
[2018-02-22] MEDS: SODIUM CHLORIDE 0.9% 1000ML 1,000 ML IV SCH (15:03)
[2018-02-22 15:54] VITALS: BP 169/68; PULSE 57; TEMP 36.5; O2SAT 99
--- NOTE | 2018-02-22 16:19 | Progress Note ---
Internal Med Progress Note Date of Service: Feb 22, 2018. Provider Documentation: SUBJECTIVE: The patient was seen and examined to telemetry unit She has history of CAD and complaining of right upper quadrant/epigastric pain She was noted to have acute cholecystitis and her EKG and troponin were unremarkable Complains to have some pain in the right during my examination OBJECTIVE: Vital Signs-as noted below Exam: General-no aberrant distress except pain in right upper quadrant Some drowsiness from administration of Marcaine Eyes-normal ENT-normal Neck-supple Lungs-clear to auscultate bilaterally Heart-regular, no murmur Abdomen-soft, tender right upper quadrant, Luis sign positive, bowel sounds present Extremities-negative for any edema Neuro-alert awake and oriented 3, Generally weak Lab data as noted below. ASSESSMENT & PLAN: ABDOMINAL PAIN, ACUTE CHOLECYSTITIS WITH BILIARY COLIC -Admit to telemetry -Patient presenting from home where she presented with right upper quadrant abdominal pain that was radiating up into her chest that woke her from sleep last night; in the ED, RUQ -US showing cholelithiasis and gallbladder sludge and HIDA scan confirmed acute cholecystitis -LFTs WNL -Evaluated by general surgery in the ED -Pain and nausea control -Antibiotic added -Likely laparoscopic cholecystectomy tomorrow CHEST PAIN, HISTORY OF CAD -Chest pain likely GI in nature -Does not seem to be patient's anginal equivalent -Initial troponin negative, EKG without acute ST changes -Continue to cycle cardiac enzymes-negative for ACS, check resting echocardiogram; pending -If troponins remain negative and echocardiogram does not show acute changes, patient can proceed to the OR and be considered an acceptable risk -Discussed with surgery HYPERTENSION -BP mildly elevated, likely due to pain -Received metoprolol 5 mg IV in the ED -Continue home doses of lisinopril and oral metoprolol for now, and reassess once pain is under control GERD -Continue PPI and H2 reynold DVT PROPHYLAXIS -SCDs in the event patient needs invasive procedure CODE STATUS -Patient is a full code as per discussion with her. DISPOSITION -In my clinical judgment this beneficiary meets acute admission criteria, established by [facility], that includes being hospitalized through two midnights. Vital Signs: Date Time Temp Pulse Resp B/P (MAP) Pulse Ox O2 Delivery O2 Flow Rate FiO2 02/22/18 15:54 36.5 57 16 169/68 (101) 99 Room Air 02/22/18 10:50 36.6 63 16 200/76 (117) 97 Room Air 02/22/18 09:36 106 16 165/64 100 Room Air 02/22/18 08:30 98 16 171/83 99 Room Air 02/22/18 07:34 61 02/22/18 07:29 69 166/65 02/22/18 07:15 100 Room Air 02/22/18 07:11 65 14 176/75 100 Room Air 02/22/18 05:33 62 14 02/22/18 05:31 164/71 02/22/18 05:28 59 12 98 02/22/18 05:23 62 15 99 02/22/18 05:08 60 16 98 02/22/18 05:04 63 16 134/68 100 Room Air 02/22/18 05:03 61 12 100 02/22/18 05:01 134/68 02/22/18 04:58 57 12 99 02/22/18 04:55 147/65 02/22/18 04:08 58 12 99 02/22/18 04:03 60 12 99 02/22/18 04:02 167/69 02/22/18 03:58 65 28 99 02/22/18 03:53 60 16 99 02/22/18 03:48 62 15 97 02/22/18 03:43 63 17 98 02/22/18 03:38 64 10 97 02/22/18 03:34 63 02/22/18 03:33 64 16 99 02/22/18 03:31 160/77 02/22/18 03:22 96 Room Air 02/22/18 03:22 96 Room Air 02/22/18 03:22 36.8 66 18 181/66 96 Room Air 02/22/18 03:21 181/66 Lab Results: Results Past 24 Hours Test 02/22/18 03:35 02/22/18 06:25 02/22/18 07:24 02/22/18 15:30 Range/Units White Blood Count 6.95 4.8-10.8 K/uL Red Blood Count 4.13 4.2-5.4 M/uL Hemoglobin 12.4 12.0-16.0 g/dL Hematocrit 36.1 37-47 % Mean Corpuscular Volume 87.4 80-100 fL Mean Corpuscular Hemoglobin 30.0 25-34 pg Mean Corpuscular Hemoglobin Concent 34.3 32-36 g/dl Platelet Count 288 130-400 K/uL Mean Platelet Volume 9.9 7.4-10.4 fL Neutrophils (%) (Auto) 63.2 % Lymphocytes (%) (Auto) 25.2 % Monocytes (%) (Auto) 6.9 % Eosinophils (%) (Auto) 4.3 % Basophils (%) (Auto) 0.3 % Neutrophils # (Auto) 4.39 1.4-6.5 K/uL Lymphocytes # (Auto) 1.75 1.2-3.4 K/uL Monocytes # (Auto) 0.48 0.11-0.59 K/uL Eosinophils # (Auto) 0.30 0-0.5 K/uL Basophils # (Auto) 0.02 0-0.2 K/uL RDW Standard Deviation 40.4 36.4-46.3 fL RDW Coefficient of Variation 12.5 11.5-14.5 % Immature Granulocyte % (Auto) 0.1 % Immature Granulocyte # (Auto) 0.01 0.00-0.02 K/uL Sodium Level 132 136-145 mmol/L Potassium Level 3.8 3.5-5.1 mmol/L Chloride Level 99 98-107 mmol/L Carbon Dioxide Level 26 21-32 mmol/L Anion Gap 7.0 3-11 mmol/L Blood Urea Nitrogen 21 7-18 mg/dl Creatinine 1.01 0.60-1.20 mg/dl Est Creatinine Clear Calc Drug Dose 38.0 ml/min Estimated GFR () 59.6 Estimated GFR (Non- 51.4 BUN/Creatinine Ratio 20.6 10-20 Random Glucose 108 70-99 mg/dl Calcium Level 8.8 8.5-10.1 mg/dl Total Bilirubin 0.4 0.2-1 mg/dl Direct Bilirubin 0.1 0-0.2 mg/dl Aspartate Amino Transf (AST/SGOT) 13 15-37 U/L Alanine Aminotransferase (ALT/SGPT) 16 12-78 U/L Alkaline Phosphatase 63 45-117 U/L Troponin I < 0.015 < 0.015 0-0.045 ng/ml Total Protein 7.2 6.4-8.2 gm/dl Albumin 3.5 3.4-5.0 gm/dl Urine Color YELLOW Urine Appearance CLEAR CLEAR Urine pH >= 9.0 4.5-7.5 Urine Specific [place] 1.017 1.000-1.030 Urine Protein NEG NEG Urine Glucose (UA) NEG NEG Urine Ketones NEG NEG Urine Occult Blood NEG NEG Urine Nitrite NEG NEG Urine Bilirubin NEG NEG Urine Urobilinogen NEG NEG Urine Leukocyte Esterase TRACE NEG Urine WBC (Auto) 1-5 0-5 /hpf Urine RBC (Auto) 0-4 0-4 /hpf Urine Hyaline Casts (Auto) 0 0-5 /lpf Urine Epithelial Cells (Auto) 20-30 0-5 /lpf Urine Bacteria (Auto) NEG NEG
[2018-02-22] MEDS ORDERED: PIPERACILL/TAZOBAC CONSULT ACTIVE PRN (16:30)
[2018-02-22] MEDS ORDERED: PIPERACILL/TAZOBAC IV 3.375 GM in D5W 100 ML IV ONE (16:30)
[2018-02-22] MEDS ORDERED: MoRPHine SULFATE 4 MG/ML 1 ML CARP\\VIAL IV PRN (18:00)
[2018-02-22 20:09] VITALS: BP 176/69; PULSE 61; TEMP 36.3; O2SAT 100
[2018-02-22] MEDS: SIMVASTATIN 20 MG TAB PO SCH (20:21)
[2018-02-22] MEDS: RANITIDINE HCL 150 MG TAB PO SCH (20:21)
[2018-02-22] MEDS: METOPROLOL TARTRATE 25 MG TAB PO SCH (20:21)
[2018-02-22] MEDS: PIPERACILL/TAZOBAC IV 3.375 GM in D5W 100ML IV SCH (21:29)
[2018-02-23] VITALS (10 sets, daily range): BP systolic 161–199; BP diastolic 60–75; PULSE 58–71; TEMP 36.4–36.9; O2SAT 96–99
[2018-02-23] MEDS: SODIUM CHLORIDE 0.9% 1000ML 1,000 ML IV SCH ×2 (04:54→22:20)
[2018-02-23] MEDS: LISINOPRIL 20 MG TAB PO SCH (05:35)
[2018-02-23] MEDS: LORAZEPAM 0.5 MG TAB PO PRN ×2 (05:35→19:56)
[2018-02-23] MEDS: PIPERACILL/TAZOBAC IV 3.375 GM in D5W 100ML IV SCH ×3 (05:40→22:20)
[2018-02-23 05:57] LABS: HEMATOCRIT 38.6 % (37-47); HEMOGLOBIN 13.3 g/dL (12.0-16.0); MEAN CELL VOLUME 86.4 fL (80-100); MEAN CORPUSCULAR HEMOGLOBIN 29.8 pg (25-34); MEAN CORPUSCULAR HGB CONC 34.5 g/dl (32-36); MEAN PLATELET VOLUME 10.2 fL (7.4-10.4); PLATELET COUNT 336 K/uL (130-400); RED CELL DISTRIBUTION WIDTH CV 12.5 % (11.5-14.5); RED CELL DISTRIBUTION WIDTH SD 39.7 fL (36.4-46.3)
[2018-02-23 06:29] LABS: ALBUMIN 3.1 gm/dl (3.4-5.0); CALCIUM 8.2 mg/dl (8.5-10.1); CREATININE 0.87 mg/dl (0.60-1.20); POTASSIUM 3.9 mmol/L (3.5-5.1); TOTAL PROTEIN 6.8 gm/dl (6.4-8.2)
[2018-02-23] MEDS: RANITIDINE HCL 150 MG TAB PO SCH ×2 (08:13→20:24)
[2018-02-23] MEDS: PANTOprazole SOD 40 MG TAB PO SCH (08:13)
[2018-02-23] MEDS: METOPROLOL TARTRATE 25 MG TAB PO SCH ×2 (08:13→20:23)
--- NOTE | 2018-02-23 08:37 | Surgery Progress Note ---
Surgery Progress Note Date of Service Feb 23, 2018. Objective Vital Signs: Date Time Temp Pulse Resp B/P (MAP) Pulse Ox O2 Delivery O2 Flow Rate FiO2 02/23/18 07:37 36.7 63 16 191/65 (107) 99 Room Air 02/23/18 04:55 71 182/75 (110) 02/23/18 04:30 36.6 59 18 182/70 (107) 99 Room Air 02/23/18 00:17 36.9 58 18 161/64 (96) 98 Room Air 02/23/18 00:00 Room Air 02/22/18 20:09 36.3 61 18 176/69 (104) 100 Room Air 02/22/18 20:00 Room Air 02/22/18 16:00 Room Air 02/22/18 15:54 36.5 57 16 169/68 (101) 99 Room Air 02/22/18 10:50 36.6 63 16 200/76 (117) 97 Room Air 02/22/18 09:36 106 16 165/64 100 Room Air Abdomen: soft, + tenderness (minimal) Laboratory Results: Results Past 24 Hours Test 02/22/18 15:30 02/22/18 19:29 02/23/18 05:21 Range/Units Troponin I < 0.015 < 0.015 0-0.045 ng/ml White Blood Count 8.40 4.8-10.8 K/uL Red Blood Count 4.47 4.2-5.4 M/uL Hemoglobin 13.3 12.0-16.0 g/dL Hematocrit 38.6 37-47 % Mean Corpuscular Volume 86.4 80-100 fL Mean Corpuscular Hemoglobin 29.8 25-34 pg Mean Corpuscular Hemoglobin Concent 34.5 32-36 g/dl RDW Standard Deviation 39.7 36.4-46.3 fL RDW Coefficient of Variation 12.5 11.5-14.5 % Platelet Count 336 130-400 K/uL Mean Platelet Volume 10.2 7.4-10.4 fL Sodium Level 129 136-145 mmol/L Potassium Level 3.9 3.5-5.1 mmol/L Chloride Level 99 98-107 mmol/L Carbon Dioxide Level 21 21-32 mmol/L Anion Gap 9.0 3-11 mmol/L Blood Urea Nitrogen 13 7-18 mg/dl Creatinine 0.87 0.60-1.20 mg/dl Est Creatinine Clear Calc Drug Dose 43.9 ml/min Estimated GFR () 71.4 Estimated GFR (Non- 61.6 BUN/Creatinine Ratio 14.5 10-20 Random Glucose 98 70-99 mg/dl Calcium Level 8.2 8.5-10.1 mg/dl Total Bilirubin 0.8 0.2-1 mg/dl Aspartate Amino Transf (AST/SGOT) 156 15-37 U/L Alanine Aminotransferase (ALT/SGPT) 196 12-78 U/L Alkaline Phosphatase 88 45-117 U/L Total Protein 6.8 6.4-8.2 gm/dl Albumin 3.1 3.4-5.0 gm/dl Globulin 3.7 2.5-4.0 gm/dl Albumin/Globulin Ratio 0.8 0.9-2 Lipase 235 73-393 U/L Assessment & Plan cholelithiasis, acute cholecystitis HIDA without uptake at 60 min and reproduced her symptoms laparoscopic cholecystectomy today
[2018-02-23] MEDS ORDERED: FENTANYL CITRATE INJ 50 MCG/1 ML 2 ML VIAL ONE (10:21)
[2018-02-23] MEDS ORDERED: ONDANSETRON INJ 2 MG/ML 2 ML VIAL ONE (10:21)
[2018-02-23] MEDS ORDERED: LIDOCAINE HCL 2% 2 ML VIAL (20MG/ML) ONE (10:21)
[2018-02-23] MEDS ORDERED: DEXAMETHASONE SOD INJ 4 MG/ML VIAL ONE (10:21)
[2018-02-23] MEDS ORDERED: ROCURONIUM BROMIDE 10 MG/ML 5 ML VIAL ONE (10:21)
[2018-02-23] MEDS ORDERED: MIDAZOLAM HCL 1 MG/ML 2ML VIAL ONE (10:21)
[2018-02-23] MEDS ORDERED: PROPOFOL IV EMULSION 10 MG/ML 20 ML VIAL ONE (10:21)
[2018-02-23] MEDS ORDERED: NEOSTIGMINE METHYLSULFATE 5 MG/5 ML SYR ONE (10:21)
[2018-02-23] MEDS ORDERED: GLYCOPYRROLATE INJ 0.2 MG/ML VIAL ONE (10:21)
[2018-02-23] MEDS ORDERED: ATROPINE SULFATE 0.1 MG/ML 5ML SYR IV PRN (10:30)
[2018-02-23] MEDS ORDERED: EpHEDrine SULFATE INJ 50 MG/ML AMP IV PRN (10:30)
[2018-02-23] MEDS ORDERED: ONDANSETRON INJ 2 MG/ML 2 ML VIAL IV PRN (10:30)
[2018-02-23] MEDS ORDERED: CONRAY 60% 50 ML VIAL ONE (11:14)
[2018-02-23] MEDS ORDERED: BUPIVACAINE 0.5 % 5 MG/1 ML PF 10ML VIAL ONE (11:14)
--- NOTE | 2018-02-23 11:16 | History & Physical Bridge Note ---
H&P Re-Evaluation Bridge Note: I have examined the patient, reviewed the History & Physical and in the interval since the performance of the History & Physical I have noted the following changes of clinical significance: No changes noted
[2018-02-23] MEDS ORDERED: HydrALAZINE HCL 20 MG/ML VIAL ONE (11:58)
--- NOTE | 2018-02-23 12:34 | [facility] Post Operative Brief Note ---
Immediate Operative Summary Operative Date Feb 23, 2018. Pre-Operative Diagnosis cholelithiasis with acute cholecystitis Post-Operative Diagnosis same, with intestinal adhesions Procedure(s) Performed Laparoscopic Cholecystectomy, Intraoperative Cholangiogram, Lysis of Adhesion Surgeon Dr Elaine An/Syq 13 Nav/C2 Operator Surgeon(s) Ty Murray PA-C Estimated Blood Loss 4ml Findings Consistent with Post-Op Diagnosis Window of safety obtained. Cholangiogram negative for filling defect. Specimens A, Gallbladder Drains None Anesthesia Type General Complication(s) none Disposition Accompanied Pt To Recover: no Disposition: Recovery Room / PACU
--- NOTE | 2018-02-23 12:41 | [facility] Operative Report ---
Operative Report Operative Date Feb 23, 2018. Pre-Operative Diagnosis cholelithiasis with acute cholecystitis Post-Operative Diagnosis Same, with intestinal adhesions Procedure(s) Performed Laparoscopic cholecystectomy with intraoperative cholangiogram, laparoscopic lysis of adhesions Surgeon Dr Elaine Salsa Dance Instructor Surgeon(s) Ty Murray PA-C Estimated Blood Loss 4ml Findings Window of safety obtained. Cholangiogram negative for filling defect. Specimens A, Gallbladder Drains None Anesthesia General Complication(s) None Disposition Recovery Room / PACU Indications 82-year-old female admitted with right upper quadrant pain, cholelithiasis, and history of cardiac disease status post stents. HIDA scan showed acute cholecystitis, cleared for surgery by internal medicine. Plan for laparoscopic cholecystectomy with possible cholangiogram. The risks of the procedure were discussed, all questions were answered, and the patient agreed to proceed with surgery as planned. Description of Procedure The patient was properly identified, consented, and taken to the operating room where she was placed in the supine position. General endotracheal anesthesia was induced. SCDs and a safety belt were placed. Preoperative antibiotics were administered. The patient's abdomen was prepped and draped in the standard sterile fashion. A surgical timeout was performed and all parties were in agreement that this was the correct patient and procedure to be performed and we continued as planned. An incision was made superior and to the left of the umbilicus overlying the rectus muscle and the Veress needle was inserted. Saline drop test confirmed entry into the peritoneum. The abdomen was insufflated with carbon dioxide which the patient tolerated without incident. The abdomen was then entered using the Optiview technique and a 5 mm trocar. The laparoscope was inserted and no damage from initial trocar or Veress needle placement was noted, no gross abnormalities were noted within the 4 quadrants of the abdomen. An 11 mm port was placed in the subxiphoid position and two 5 mm ports were then placed in the right subcostal position. The patient was placed in reverse Trendelenburg position and rotated towards the left. There were some adhesions of omentum to the right lateral abdominal wall. These were taken down to allow for placement of the ports. There was evidence of acute cholecystitis. The dome of the gallbladder was retracted towards the left upper quadrant and the infundibulum was retracted toward the right lower quadrant revealing Calot's triangle. Peritoneal attachments were taken down with electrocautery and blunt dissection. The cystic duct and artery were circumferentially dissected. A window of safety was obtained showing the cystic duct entering the gallbladder with no aberrant structures noted. The [facility] cholangiocatheter was then used to perform an intraoperative cholangiogram which showed no filling defects, and good filling of the duodenum and hepatic radicals with contrast. The cystic duct and artery were doubly clipped and divided. The gallbladder was then lifted off the gallbladder fossa with electrocautery. The gallbladder was placed in an Endo Catch bag and removed through the subxiphoid port site. The right upper quadrant was irrigated and hemostasis was found to be good. 5 mm trochars were removed under direct visualization and the abdomen was allowed to collapse. The subxiphoid port site fascia was closed with 0 Vicryl suture. The wound was irrigated, and the skin of all ports was closed with 4-0 Monocryl subcuticular sutures. Dermabond was placed over the wounds. The patient was extubated in the operating room and taken to the PACU where she recovered without apparent incident. All sponge, instrument and needle counts were correct at the conclusion of the procedure. The patient tolerated the procedure well. The physician's assistant account executive was present and scrubbed for the entire to the case. He was essential in positioning the patient, prepping and draping, retraction and exposure, driving the laparoscope, removal of the gallbladder, closure the incisions, placement of the dressings. I attest to the content of the Intraoperative Record and any orders documented therein. Any exceptions are noted below.
[2018-02-23] MEDS ORDERED: OXYCODONE/ACETAMINOPHEN 5-325 TAB PO PRN (12:45)
[2018-02-23] MEDS: FENTANYL CITRATE INJ 50 MCG/1 ML 2 ML VIAL IV PRN ×2 (13:11→13:16)
--- NOTE | 2018-02-23 13:11 | DIAGNOSTIC IMAGING REPORT ---
INTRAOPERATIVE CHOLANGIOGRAM HISTORY: Post cholecystectomy. FLUOROSCOPY TIME: 46.8 seconds. 3 fluoroscopic spot images.. FINDINGS: Fluoroscopy was provided for an intraoperative cholangiogram status post cholecystectomy. Contrast was injected through the cystic duct remnant. The common bile duct is normal in course and caliber. There are no filling defects seen within the common bile duct to suggest a retained stone. Contrast extends into the small bowel. There is no intrahepatic bile duct dilatation. IMPRESSION: Fluoroscopy provided for an intraoperative cholangiogram status post cholecystectomy. No filling defects within the common bile duct. Electronically signed by: Judd Nieto M.D. 02/23/2018 1:10 PM Dictated Date/Time: 02/23/2018 1:09 PM
--- NOTE | 2018-02-23 13:25 | Anesthesiology Progress Note ---
Anesthesia Post Op Note Date & Time Feb 23, 2018 at 13:25 Vital Signs Pain Intensity: 4 Vital Signs Past 12 Hours Date Time Temp Pulse Resp B/P (MAP) Pulse Ox O2 Delivery O2 Flow Rate FiO2 02/23/18 13:21 62 13 02/23/18 13:05 36.3 60 16 158/64 (75) 100 Nasal Cannula 2 02/23/18 13:03 62 13 02/23/18 13:03 62 13 100 02/23/18 13:02 161/65 02/23/18 12:58 62 16 100 02/23/18 12:58 62 16 02/23/18 12:57 63 13 02/23/18 12:57 63 13 100 02/23/18 12:56 63 11 171/70 100 02/23/18 12:56 63 11 02/23/18 12:51 67 14 02/23/18 12:51 67 14 175/68 100 02/23/18 12:46 73 18 02/23/18 12:46 72 18 177/67 100 02/23/18 12:43 173/86 02/23/18 12:41 36.1 86 18 173/86 (128) 99 Oxymask 10 02/23/18 10:32 36.7 61 16 193/64 (107) 98 Room Air 02/23/18 08:10 Room Air 02/23/18 07:37 36.7 63 16 191/65 (107) 99 Room Air 02/23/18 04:55 71 182/75 (110) 02/23/18 04:30 36.6 59 18 182/70 (107) 99 Room Air Notes Mental Status: alert / awake / arousable, participated in evaluation Pt Amnestic to Procedure: Yes Nausea / Vomiting: adequately controlled Pain: adequately controlled Airway Patency, RR, SpO2: stable & adequate BP & HR: stable & adequate Hydration State: stable & adequate Anesthetic Complications: no major complications apparent
[2018-02-23] MEDS ORDERED: NURSING VERBAL MED ORDER ONE (14:30)
[2018-02-23] MEDS: ONDANSETRON INJ 2 MG/ML 2 ML VIAL IV PRN (18:05)
[2018-02-23] MEDS: ACETAMINOPHEN 325 MG TAB PO PRN (20:23)
[2018-02-23] MEDS: SIMVASTATIN 20 MG TAB PO SCH (22:20)
[2018-02-24] VITALS (7 sets, daily range): BP systolic 106–180; BP diastolic 51–66; PULSE 54–85; TEMP 36.7–37.1; O2SAT 97–100
[2018-02-24] MEDS: LORAZEPAM 0.5 MG TAB PO PRN (04:15)
[2018-02-24] MEDS: PIPERACILL/TAZOBAC IV 3.375 GM in D5W 100ML IV SCH ×2 (05:36→13:28)
--- NOTE | 2018-02-24 07:23 | Surgery Progress Note ---
Surgery Progress Note Date of Service Feb 24, 2018. Subjective Post OP Day: 1 + feeling well, + complaints (Decreased appetite), + flatus, + diet (Clears), No bowel movement, No pain controlled, No nausea, No vomiting Objective Vital Signs: Date Time Temp Pulse Resp B/P (MAP) Pulse Ox O2 Delivery O2 Flow Rate FiO2 02/24/18 07:10 36.7 54 16 154/65 (94) 97 Room Air 02/24/18 04:24 36.7 56 17 180/66 (104) 100 Nasal Cannula 2.0 02/24/18 00:06 36.7 71 18 154/56 (88) 99 Room Air 02/24/18 00:01 Room Air 02/23/18 19:54 66 178/60 (99) 02/23/18 19:27 36.5 62 18 188/70 (109) 99 Room Air 02/23/18 16:00 96 Nasal Cannula 2.0 02/23/18 14:46 36.4 60 16 174/67 (102) 96 Nasal Cannula 2.0 02/23/18 13:59 36.4 71 18 199/74 (115) 99 Nasal Cannula 2.0 02/23/18 13:27 63 13 100 02/23/18 13:27 61 13 02/23/18 13:26 166/64 02/23/18 13:22 63 14 02/23/18 13:22 63 14 100 02/23/18 13:21 62 13 02/23/18 13:05 36.3 60 16 158/64 (75) 100 Nasal Cannula 2 02/23/18 13:03 62 13 02/23/18 13:03 62 13 100 02/23/18 13:02 161/65 02/23/18 12:58 62 16 100 02/23/18 12:58 62 16 02/23/18 12:57 63 13 02/23/18 12:57 63 13 100 02/23/18 12:56 63 11 171/70 100 02/23/18 12:56 63 11 02/23/18 12:51 67 14 02/23/18 12:51 67 14 175/68 100 02/23/18 12:46 73 18 02/23/18 12:46 72 18 177/67 100 02/23/18 12:43 173/86 02/23/18 12:41 36.1 86 18 173/86 (128) 99 Oxymask 10 02/23/18 10:32 36.7 61 16 193/64 (107) 98 Room Air 02/23/18 08:10 Room Air 02/23/18 07:37 36.7 63 16 191/65 (107) 99 Room Air General Appearance: WD/WN, no apparent distress Head: normocephalic, atraumatic Respiratory/Chest: no respiratory distress Abdomen: non distended, soft, no organomegaly, + tenderness (mild-moderate Incisional TTP) Incision(s): clean, dry, intact, no erythema, no drainage Laboratory Results: Results Past 24 Hours Test 02/24/18 04:44 Range/Units Assessment & Plan POD #1 s/p lap markus Abdomen soft, non-distended, incisional tenderness (expected). incisions c/d/ i. no N/V at this time. afebrile. Urinating without issue. Reports she has not taken in much PO, keep clears for now - encouraged PO intake as tolerated. Continue IVF, IV Abx. Advance diet as she tolerates. Possible d/c today pending how she does with diet. Patient reports her two son's are coming into town to take care of her. [facility] Surgery covering this weekend.
[2018-02-24] MEDS ORDERED: OXYC-57 PO (07:36)
--- NOTE | 2018-02-24 07:38 | Discharge Instructions ---
Discharge Instructions Date of Service Feb 24, 2018. Admission Reason for Admission: Abdominal Pain Discharge Discharge Diagnosis / Problem: laparoscopic cholecystectomy Discharge Goals Goal(s): Decrease discomfort Activity Recommendations Activity Limitations: as noted below Lifting Limitations: no more than 10 pounds Shower/Bathe: no limitations Driving or Machine Use: 1 week . Instructions / Follow-Up Instructions / Follow-Up Dr. Elaine in 1-2 weeks, call the office [phone] to schedule, [address] Current Hospital Diet Patient's current hospital diet: Clear Liquid Diet Discharge Diet Recommended Diet: Low Fat Diet (for a few days) Procedures Procedures Performed: Laparoscopic Cholecystectomy, Intraoperative Cholangiogram, Lysis of Adhesion Pending Studies Studies pending at discharge: yes List of pending studies: pathology Medical Emergencies . Who to Call and When: Medical Emergencies: If at any time you feel your situation is an emergency, please call 911 immediately. . Non-Emergent Contact Non-Emergency issues call your: Surgeon Call Non-Emergent contact if: you have a fever, temperature is above 101.5, your pain is not controlled, wound has increased redness, wound has increased pain, you have any medication questions . "Provider Documentation" section prepared by Ty Murray. . [place] Drug Monitoring Program Search Results: no issues identified
--- NOTE | 2018-02-24 07:55 | Anesthesiology Progress Note ---
Anesthesia Post Op Note Date & Time Feb 24, 2018 at 07:54 Vital Signs Pain Intensity: 6.0 Vital Signs Past 12 Hours Date Time Temp Pulse Resp B/P (MAP) Pulse Ox O2 Delivery O2 Flow Rate FiO2 02/24/18 07:10 36.7 54 16 154/65 (94) 97 Room Air 02/24/18 04:24 36.7 56 17 180/66 (104) 100 Nasal Cannula 2.0 02/24/18 00:06 36.7 71 18 154/56 (88) 99 Room Air 02/24/18 00:01 Room Air Notes Mental Status: alert / awake / arousable, participated in evaluation Pt Amnestic to Procedure: Yes Nausea / Vomiting: adequately controlled Pain: adequately controlled Airway Patency, RR, SpO2: stable & adequate BP & HR: stable & adequate Hydration State: stable & adequate Anesthetic Complications: no major complications apparent
[2018-02-24] MEDS: LISINOPRIL 20 MG TAB PO SCH (08:43)
[2018-02-24] MEDS: METOPROLOL TARTRATE 25 MG TAB PO SCH (08:43)
[2018-02-24] MEDS: PANTOprazole SOD 40 MG TAB PO SCH (08:43)
[2018-02-24] MEDS: RANITIDINE HCL 150 MG TAB PO SCH (08:43)
[2018-02-24 09:11] LABS: BASO % 0.1 %; BASO ABS # 0.01 K/uL (0-0.2); EOS % 0.7 %; EOS ABS # 0.07 K/uL (0-0.5); HEMATOCRIT 36.1 % (37-47); HEMOGLOBIN 12.6 g/dL (12.0-16.0); IG# 0.02 K/uL (0.00-0.02); LYMPH % 17.7 %; LYMPH ABS # 1.72 K/uL (1.2-3.4); MEAN CELL VOLUME 86.8 fL (80-100); MEAN CORPUSCULAR HEMOGLOBIN 30.3 pg (25-34); MEAN CORPUSCULAR HGB CONC 34.9 g/dl (32-36); MEAN PLATELET VOLUME 10.3 fL (7.4-10.4); MONO % 8.4 %; MONO ABS # 0.81 K/uL (0.11-0.59); NEUT % 72.9 %; NEUT ABS # 7.07 K/uL (1.4-6.5); PLATELET COUNT 315 K/uL (130-400); RED CELL DISTRIBUTION WIDTH CV 12.8 % (11.5-14.5); RED CELL DISTRIBUTION WIDTH SD 40.8 fL (36.4-46.3)
[2018-02-24 09:51] LABS: CALCIUM 8.5 mg/dl (8.5-10.1); CREATININE 0.91 mg/dl (0.60-1.20); POTASSIUM 3.6 mmol/L (3.5-5.1)
[2018-02-24 10:43] LABS: ALBUMIN 3.1 gm/dl (3.4-5.0); TOTAL PROTEIN 6.6 gm/dl (6.4-8.2)
[2018-02-24] MEDS: SODIUM CHLORIDE 0.9% 1000ML 1,000 ML IV SCH (11:38)
[2018-02-24] MEDS ORDERED: SODIUM CHLORIDE 1 GM TAB PO ONE (12:15)
--- NOTE | 2018-02-24 12:25 | Progress Note ---
Internal Med Progress Note Date of Service: Feb 23, 2018. Provider Documentation: This is a bill for 02/23/18 SUBJECTIVE: The patient was seen and examined to telemetry unit She has history of CAD and complaining of right upper quadrant/epigastric pain She was noted to have acute cholecystitis and her EKG and troponin were unremarkable Complains to have some pain in the right during my examination 02/23 S/P lap Destini A little drowsy and minimal pain OBJECTIVE: Vital Signs-as noted below Exam: General-no aberrant distress except pain in right upper quadrant Some drowsiness from administration of Marcaine Eyes-normal ENT-normal Neck-supple Lungs-clear to auscultate bilaterally Heart-regular, no murmur Abdomen-soft, tender right upper quadrant, Luis sign positive, bowel sounds present Extremities-negative for any edema Neuro-alert awake and oriented 3, Generally weak Lab data as noted below. ASSESSMENT & PLAN: ABDOMINAL PAIN, ACUTE CHOLECYSTITIS WITH BILIARY COLIC -Admit to telemetry -Patient presenting from home where she presented with right upper quadrant abdominal pain that was radiating up into her chest that woke her from sleep last night; in the ED, RUQ -US showing cholelithiasis and gallbladder sludge and HIDA scan confirmed acute cholecystitis -LFTs WNL -Evaluated by general surgery in the ED -Pain and nausea control -Antibiotic added - laparoscopic cholecystectomy on 02/23/17 -Clinically better with some pain and drowsiness CHEST PAIN, HISTORY OF CAD -Chest pain likely GI in nature -Does not seem to be patient's anginal equivalent -Initial troponin negative, EKG without acute ST changes -Continue to cycle cardiac enzymes-negative for ACS, check resting echocardiogram; pending -If troponins remain negative and echocardiogram does not show acute changes, patient can proceed to the OR and be considered an acceptable risk -Discussed with surgery -no more pain HYPERTENSION -BP mildly elevated, likely due to pain -Received metoprolol 5 mg IV in the ED -Continue home doses of lisinopril and oral metoprolol for now, and reassess once pain is under control GERD -Continue PPI and H2 reynold DVT PROPHYLAXIS -SCDs in the event patient needs invasive procedure CODE STATUS -Patient is a full code as per discussion with her. DISPOSITION -In my clinical judgment this beneficiary meets acute admission criteria, established by [facility], that includes being hospitalized through two midnights. Advanced diet PT/OT evaluation Vital Signs: Date Time Temp Pulse Resp B/P (MAP) Pulse Ox O2 Delivery O2 Flow Rate FiO2 02/24/18 08:41 85 106/51 (69) 02/24/18 08:30 97 Room Air 02/24/18 07:10 36.7 54 16 154/65 (94) 97 Room Air 02/24/18 04:24 36.7 56 17 180/66 (104) 100 Nasal Cannula 2.0 02/24/18 00:06 36.7 71 18 154/56 (88) 99 Room Air 02/24/18 00:01 Room Air 02/23/18 19:54 66 178/60 (99) 02/23/18 19:27 36.5 62 18 188/70 (109) 99 Room Air 02/23/18 16:00 96 Nasal Cannula 2.0 02/23/18 14:46 36.4 60 16 174/67 (102) 96 Nasal Cannula 2.0 02/23/18 13:59 36.4 71 18 199/74 (115) 99 Nasal Cannula 2.0 02/23/18 13:27 63 13 100 02/23/18 13:27 61 13 02/23/18 13:26 166/64 02/23/18 13:22 63 14 02/23/18 13:22 63 14 100 02/23/18 13:21 62 13 02/23/18 13:05 36.3 60 16 158/64 (75) 100 Nasal Cannula 2 02/23/18 13:03 62 13 02/23/18 13:03 62 13 100 02/23/18 13:02 161/65 02/23/18 12:58 62 16 100 02/23/18 12:58 62 16 02/23/18 12:57 63 13 02/23/18 12:57 63 13 100 02/23/18 12:56 63 11 171/70 100 02/23/18 12:56 63 11 02/23/18 12:51 67 14 02/23/18 12:51 67 14 175/68 100 02/23/18 12:46 73 18 02/23/18 12:46 72 18 177/67 100 02/23/18 12:43 173/86 02/23/18 12:41 36.1 86 18 173/86 (128) 99 Oxymask 10 Lab Results: Results Past 24 Hours Test 02/24/18 08:30 Range/Units White Blood Count 9.70 4.8-10.8 K/uL Red Blood Count 4.16 4.2-5.4 M/uL Hemoglobin 12.6 12.0-16.0 g/dL Hematocrit 36.1 37-47 % Mean Corpuscular Volume 86.8 80-100 fL Mean Corpuscular Hemoglobin 30.3 25-34 pg Mean Corpuscular Hemoglobin Concent 34.9 32-36 g/dl Platelet Count 315 130-400 K/uL Mean Platelet Volume 10.3 7.4-10.4 fL Neutrophils (%) (Auto) 72.9 % Lymphocytes (%) (Auto) 17.7 % Monocytes (%) (Auto) 8.4 % Eosinophils (%) (Auto) 0.7 % Basophils (%) (Auto) 0.1 % Neutrophils # (Auto) 7.07 1.4-6.5 K/uL Lymphocytes # (Auto) 1.72 1.2-3.4 K/uL Monocytes # (Auto) 0.81 0.11-0.59 K/uL Eosinophils # (Auto) 0.07 0-0.5 K/uL Basophils # (Auto) 0.01 0-0.2 K/uL RDW Standard Deviation 40.8 36.4-46.3 fL RDW Coefficient of Variation 12.8 11.5-14.5 % Immature Granulocyte % (Auto) 0.2 % Immature Granulocyte # (Auto) 0.02 0.00-0.02 K/uL Sodium Level 129 136-145 mmol/L Potassium Level 3.6 3.5-5.1 mmol/L Chloride Level 98 98-107 mmol/L Carbon Dioxide Level 21 21-32 mmol/L Anion Gap 10.0 3-11 mmol/L Blood Urea Nitrogen 13 7-18 mg/dl Creatinine 0.91 0.60-1.20 mg/dl Est Creatinine Clear Calc Drug Dose 42.1 ml/min Estimated GFR () 67.6 Estimated GFR (Non- 58.3 BUN/Creatinine Ratio 14.4 10-20 Random Glucose 113 70-99 mg/dl Calcium Level 8.5 8.5-10.1 mg/dl Total Bilirubin 0.8 0.2-1 mg/dl Direct Bilirubin 0.2 0-0.2 mg/dl Aspartate Amino Transf (AST/SGOT) 86 15-37 U/L Alanine Aminotransferase (ALT/SGPT) 164 12-78 U/L Alkaline Phosphatase 75 45-117 U/L Total Protein 6.6 6.4-8.2 gm/dl Albumin 3.1 3.4-5.0 gm/dl
--- NOTE | 2018-02-24 12:28 | Progress Note ---
Internal Med Progress Note Date of Service: Feb 24, 2018. Provider Documentation: SUBJECTIVE: The patient was seen and examined to telemetry unit She has history of CAD and complaining of right upper quadrant/epigastric pain She was noted to have acute cholecystitis and her EKG and troponin were unremarkable Complains to have some pain in the right during my examination 02/23 S/P lap Destini A little drowsy and minimal pain 02/24 Clinically better Complains generalized weakness Will get PT/OT evaluation OBJECTIVE: Vital Signs-as noted below Exam: General-no aberrant distress except pain in right upper quadrant Eyes-normal ENT-normal Neck-supple Lungs-clear to auscultate bilaterally Heart-regular, no murmur Abdomen-soft, tender right upper quadrant, Luis sign positive, bowel sounds present Extremities-negative for any edema Neuro-alert awake and oriented 3, Generally weak Lab data as noted below. ASSESSMENT & PLAN: ABDOMINAL PAIN, ACUTE CHOLECYSTITIS WITH BILIARY COLIC -Admit to telemetry -Patient presenting from home where she presented with right upper quadrant abdominal pain that was radiating up into her chest that woke her from sleep last night; in the ED, RUQ -US showing cholelithiasis and gallbladder sludge and HIDA scan confirmed acute cholecystitis -LFTs WNL-Increased but trending down 02/24/18 -Evaluated by general surgery in the ED -Pain and nausea control -Antibiotic added - laparoscopic cholecystectomy on 02/23/17 -Clinically better with some pain and drowsiness -Advance diet as tolerated CHEST PAIN, HISTORY OF CAD -Chest pain likely GI in nature -Does not seem to be patient's anginal equivalent -Initial troponin negative, EKG without acute ST changes -Continue to cycle cardiac enzymes-negative for ACS, check resting echocardiogram; pending -If troponins remain negative and echocardiogram does not show acute changes, patient can proceed to the OR and be considered an acceptable risk -Discussed with surgery -no more pain HYPERTENSION -BP mildly elevated, likely due to pain -Received metoprolol 5 mg IV in the ED -Continue home doses of lisinopril and oral metoprolol for now, and reassess once pain is under control GERD -Continue PPI and H2 reynold DVT PROPHYLAXIS -SCDs in the event patient needs invasive procedure CODE STATUS -Patient is a full code as per discussion with her. DISPOSITION -In my clinical judgment this beneficiary meets acute admission criteria, established by [facility], that includes being hospitalized through two midnights. Advanced diet PT/OT evaluation-if tolerating diet and does well with PT/OT-will discharge home Vital Signs: Date Time Temp Pulse Resp B/P (MAP) Pulse Ox O2 Delivery O2 Flow Rate FiO2 02/24/18 08:41 85 106/51 (69) 02/24/18 08:30 97 Room Air 02/24/18 07:10 36.7 54 16 154/65 (94) 97 Room Air 02/24/18 04:24 36.7 56 17 180/66 (104) 100 Nasal Cannula 2.0 02/24/18 00:06 36.7 71 18 154/56 (88) 99 Room Air 02/24/18 00:01 Room Air 02/23/18 19:54 66 178/60 (99) 02/23/18 19:27 36.5 62 18 188/70 (109) 99 Room Air 02/23/18 16:00 96 Nasal Cannula 2.0 02/23/18 14:46 36.4 60 16 174/67 (102) 96 Nasal Cannula 2.0 02/23/18 13:59 36.4 71 18 199/74 (115) 99 Nasal Cannula 2.0 02/23/18 13:27 63 13 100 02/23/18 13:27 61 13 02/23/18 13:26 166/64 02/23/18 13:22 63 14 02/23/18 13:22 63 14 100 02/23/18 13:21 62 13 02/23/18 13:05 36.3 60 16 158/64 (75) 100 Nasal Cannula 2 02/23/18 13:03 62 13 02/23/18 13:03 62 13 100 02/23/18 13:02 161/65 02/23/18 12:58 62 16 100 02/23/18 12:58 62 16 02/23/18 12:57 63 13 02/23/18 12:57 63 13 100 02/23/18 12:56 63 11 171/70 100 02/23/18 12:56 63 11 02/23/18 12:51 67 14 02/23/18 12:51 67 14 175/68 100 02/23/18 12:46 73 18 02/23/18 12:46 72 18 177/67 100 7/26/18 12:43 173/86 02/23/18 12:41 36.1 86 18 173/86 (128) 99 Oxymask 10 Lab Results: Results Past 24 Hours Test 02/24/18 08:30 Range/Units White Blood Count 9.70 4.8-10.8 K/uL Red Blood Count 4.16 4.2-5.4 M/uL Hemoglobin 12.6 12.0-16.0 g/dL Hematocrit 36.1 37-47 % Mean Corpuscular Volume 86.8 80-100 fL Mean Corpuscular Hemoglobin 30.3 25-34 pg Mean Corpuscular Hemoglobin Concent 34.9 32-36 g/dl Platelet Count 315 130-400 K/uL Mean Platelet Volume 10.3 7.4-10.4 fL Neutrophils (%) (Auto) 72.9 % Lymphocytes (%) (Auto) 17.7 % Monocytes (%) (Auto) 8.4 % Eosinophils (%) (Auto) 0.7 % Basophils (%) (Auto) 0.1 % Neutrophils # (Auto) 7.07 1.4-6.5 K/uL Lymphocytes # (Auto) 1.72 1.2-3.4 K/uL Monocytes # (Auto) 0.81 0.11-0.59 K/uL Eosinophils # (Auto) 0.07 0-0.5 K/uL Basophils # (Auto) 0.01 0-0.2 K/uL RDW Standard Deviation 40.8 36.4-46.3 fL RDW Coefficient of Variation 12.8 11.5-14.5 % Immature Granulocyte % (Auto) 0.2 % Immature Granulocyte # (Auto) 0.02 0.00-0.02 K/uL Sodium Level 129 136-145 mmol/L Potassium Level 3.6 3.5-5.1 mmol/L Chloride Level 98 98-107 mmol/L Carbon Dioxide Level 21 21-32 mmol/L Anion Gap 10.0 3-11 mmol/L Blood Urea Nitrogen 13 7-18 mg/dl Creatinine 0.91 0.60-1.20 mg/dl Est Creatinine Clear Calc Drug Dose 42.1 ml/min Estimated GFR () 67.6 Estimated GFR (Non- 58.3 BUN/Creatinine Ratio 14.4 10-20 Random Glucose 113 70-99 mg/dl Calcium Level 8.5 8.5-10.1 mg/dl Total Bilirubin 0.8 0.2-1 mg/dl Direct Bilirubin 0.2 0-0.2 mg/dl Aspartate Amino Transf (AST/SGOT) 86 15-37 U/L Alanine Aminotransferase (ALT/SGPT) 164 12-78 U/L Alkaline Phosphatase 75 45-117 U/L Total Protein 6.6 6.4-8.2 gm/dl Albumin 3.1 3.4-5.0 gm/dl
--- NOTE | 2018-02-24 15:34 | Discharge Instructions ---
Discharge Instructions Date of Service Feb 24, 2018. Admission Reason for Admission: Abdominal Pain Discharge Discharge Diagnosis / Problem: Laparoscopic Cholecystectomy, Intraoperative Cholangiogram, Lysis of Adhesi Discharge Goals Goal(s): Prevent Disease Progression Activity Recommendations Activity Limitations: resume your previous activity . Instructions / Follow-Up Instructions / Follow-Up Dr Adler's office will call with appointment.Please keep appointment with your Surgeon Current Hospital Diet Patient's current hospital diet: AHA Diet (Heart Healthy) Discharge Diet Recommended Diet: AHA Diet (Heart Healthy), Low Fat Diet Procedures Procedures Performed: Laparoscopic Cholecystectomy, Intraoperative Cholangiogram, Lysis of Adhesion Pending Studies Studies pending at discharge: no Medical Emergencies . Who to Call and When: Medical Emergencies: If at any time you feel your situation is an emergency, please call 911 immediately. . Non-Emergent Contact Non-Emergency issues call your: Primary Care Provider . Past History Medical & Surgical History: (1) S/P laparoscopic cholecystectomy (2) CAD (coronary artery disease) (3) CKD (chronic kidney disease), stage III (4) GERD (gastroesophageal reflux disease) (5) H/O oophorectomy (6) History of hysterectomy (7) H/O varicose vein stripping . "Provider Documentation" section prepared by Adrienne Aguilar. .
--- NOTE | 2018-02-25 08:16 | Discharge Summary ---
Discharge Summary Date of Service Feb 25, 2018. Discharge Summary Admission Date: Feb 22, 2018 at 08:53 Discharge Date: Feb 24, 2018 Discharge Disposition: Home Principal Diagnosis: Laparoscopic Cholecystectomy, Intraoperative Cholangiogram, Lysis of Adhesion Secondary Diagnoses/Problems: Please see H&P and Hospital Progress note Procedures: Laparoscopic Cholecystectomy, Intraoperative Cholangiogram, Lysis of Adhesion Consultations: Surgery Medication Reconciliation New Medications: Oxycodone/Acetaminophen 5MG/325MG (Percocet 5MG/325MG) Tab 1 TABLET PO Q4H PRN for Pain, #15 TAB Continued Medications: Aspirin (Aspirin Ec) 81 Mg Tab 81 MG PO DAILY Lisinopril (Lisinopril) 20 Mg Tab 20 MG PO DAILY Lorazepam (Ativan) 0.5 Mg Tab 0.5 MG PO Q6 PRN for Anxiety, TAB Metoprolol Tartrate (Lopressor) 25 Mg Tab 25 MG PO BID, #75 MAY TAKE EXTRA FOR ELAVATED HR Nitroglycerin (Nitrostat) 0.4 Mg Tab 0.4 MG UT PRN, 0 Refills Pantoprazole (Protonix) 40 Mg Tab 40 MG PO QAM, #30 TAB Ranitidine (Zantac) 150 Mg Tab 150 MG PO BID, 0 Refills Simvastatin (Zocor) 20 Mg Tab 20 MG PO QPM, 0 Refills Admission Information HPI (per Admitting provider): 82-year-old female who presents to the ED with abdominal pain. Patient reports she was woken in the middle the night with right-sided back pain that was radiating around to her right upper quadrant of her abdomen. Patient then reports the pain started to radiate up into her chest. She reports she took 3 baby aspirin and a nitroglycerin tablet at home and the pain did seem to improve. She then called EMS and was transferred to the ED for further evaluation. Patient rates the pain at its worst a #7/10, she currently rates her pain #4/10. Patient reports she otherwise has been feeling well recently. She reports she was cleaning her house yesterday and hanging curtains. She reports she climbs a flight of stairs routinely without getting chest pain or shortness of breath. She denies fevers and chills. No nausea or vomiting. She denies lightheadedness, dizziness, diaphoresis, syncopal events. She denies any urinary symptoms. In the ED, patient underwent a right upper quadrant ultrasound showing cholelithiasis and gallbladder sludge. She is afebrile without leukocytosis. In the ED, she was given IVF, IV Protonix, IV ranitidine, and IV metoprolol. Physical Exam (per Admitting): General Appearance: WD/WN, no apparent distress Head: normocephalic, atraumatic Eyes: normal inspection, EOMI, sclerae normal ENT: hearing grossly normal, + pertinent finding (Mucous membranes moist) Neck: supple, no JVD, trachea midline Respiratory/Chest: lungs clear, normal breath sounds, no respiratory distress Cardiovascular: regular rate, rhythm, no edema, normal peripheral pulses Abdomen/GI: normal bowel sounds, non tender, soft, no organomegaly Extremities/Musculoskelatal: normal inspection, no calf tenderness, normal capillary refill Neurologic/Psych: no motor/sensory deficits, alert, normal mood/affect, oriented x 3 Skin: normal color, warm/dry Hospital Course ABDOMINAL PAIN, ACUTE CHOLECYSTITIS WITH BILIARY COLIC -Admit to telemetry -Patient presenting from home where she presented with right upper quadrant abdominal pain that was radiating up into her chest that woke her from sleep last night; in the ED, RUQ -US showing cholelithiasis and gallbladder sludge and HIDA scan confirmed acute cholecystitis -LFTs WNL-Increased but trending down 02/24/18 -Evaluated by general surgery in the ED -Pain and nausea control -Antibiotic added - laparoscopic cholecystectomy on 02/23/17 -Clinically better with some pain and drowsiness -Advance diet as tolerated CHEST PAIN, HISTORY OF CAD -Chest pain likely GI in nature -Does not seem to be patient's anginal equivalent -Initial troponin negative, EKG without acute ST changes -Continue to cycle cardiac enzymes-negative for ACS, check resting echocardiogram; pending -If troponins remain negative and echocardiogram does not show acute changes, patient can proceed to the OR and be considered an acceptable risk -Discussed with surgery -no more pain HYPERTENSION -BP mildly elevated, likely due to pain -Received metoprolol 5 mg IV in the ED -Continue home doses of lisinopril and oral metoprolol for now, and reassess once pain is under control GERD -Continue PPI and H2 reynold DVT PROPHYLAXIS -SCDs in the event patient needs invasive procedure CODE STATUS -Patient is a full code as per discussion with her. DISPOSITION -In my clinical judgment this beneficiary meets acute admission criteria, established by [facility], that includes being hospitalized through two midnights. Advanced diet PT/OT evaluation-if tolerating diet and does well with PT/OT-will discharge home Total time spent on discharge = 35 minutes This includes examination of the patient, discharge planning, medication reconciliation, and communication with other providers. Discharge Instructions Date of Service Feb 24, 2018. Admission Reason for Admission: Abdominal Pain Discharge Discharge Diagnosis / Problem: Laparoscopic Cholecystectomy, Intraoperative Cholangiogram, Lysis of Adhesi Discharge Goals Goal(s): Prevent Disease Progression Activity Recommendations Activity Limitations: resume your previous activity . Instructions / Follow-Up Instructions / Follow-Up Dr Adler's office will call with appointment.Please keep appointment with your Surgeon Current Hospital Diet Patient's current hospital diet: AHA Diet (Heart Healthy) Discharge Diet Recommended Diet: AHA Diet (Heart Healthy), Low Fat Diet Procedures Procedures Performed: Laparoscopic Cholecystectomy, Intraoperative Cholangiogram, Lysis of Adhesion Pending Studies Studies pending at discharge: no Medical Emergencies . Who to Call and When: Medical Emergencies: If at any time you feel your situation is an emergency, please call 911 immediately. . Non-Emergent Contact Non-Emergency issues call your: Primary Care Provider . Past History Medical & Surgical History: (1) S/P laparoscopic cholecystectomy (2) CAD (coronary artery disease) (3) CKD (chronic kidney disease), stage III (4) GERD (gastroesophageal reflux disease) (5) H/O oophorectomy (6) History of hysterectomy (7) H/O varicose vein stripping . "Provider Documentation" section prepared by Adrienne Aguilar. . <Electronically signed by Adrienne Aguilar M.D.> Signed: 02/24/18 8425 Additional Copies To Namita Adler D.O.
== END 2018-02-24 17:10 | disposition home or self-care (01) | DRG 419 ==
LOC: EDBD 03:13 → C.EDB 03:14 → C.MED 08:53 → ENRESERV 09:34
PROVIDERS: ADMIT Internal Medicine; ATTEND Internal Medicine
PROC: 0FT44ZZ Resection of Gallbladder, Percutaneous Endoscopic Approach (ICD-10-PCS; principal; 2018-02-23 11:00)
DX: K80.00 Calculus of gallbladder with acute cholecystitis without obstruction (principal); R07.9 Chest pain, unspecified; R53.1 Weakness; I25.10 Atherosclerotic heart disease of native coronary artery without angina pectoris; I10 Essential (primary) hypertension; K21.9 Gastro-esophageal reflux disease without esophagitis; I25.2 Old myocardial infarction; Z95.5 Presence of coronary angioplasty implant and graft; Z79.82 Long term (current) use of aspirin; Z79.899 Other long term (current) drug therapy; Z88.8 Allergy status to other drugs, medicaments and biological substances

== ENCOUNTER 2024-09-16 20:57 | Observation (INO) ==
--- OUTSIDE RECORDS SUMMARY | 2024-09-16 21:02 | External Medical Summary | Summary of Care ---
Author Name Unknown Organization [facility] Address [address] [facility] [place] [address] Phone [phone] Care Team Providers Care [employer] Member Name Role Phone Pepper Horta Primary Care Provider Encounter Details Date Type Department Care Team (Late st Contact Info) Description 08/22/2024 Population Health External Data Unspecified Department Allergies Active Allergy Reactions Criticality Noted Date Comments Hydrochlorothiazide 01/01/2021 documented as of this encounter (statuses as of 08/22/2024) Medications ASPIRIN 81 MG PO CHEWIndications: CVD (arteriosclerotic cardiovascular disease),Routine medical exam,HTN, goal below 140/90 Take by mouth . 100 Tab 3 04/23/20 13 Active Fluocinonide 0.05 % External SolutionIndication s:Scalp itch Apply topically to affected area daily. Apply to scalp once a day as needed for itch 60 mL 3 01/21/20 21 Active Clobetasol Propionate 0.05 % External Solution Apply to scalp twice daily for two week then use just weekends 50 mL 3 04/14/20 22 Active Zoster Vac Recomb Adjuvanted 50 MCG/0.5ML Intramuscular Suspension Reconstituted (Shingrix) Inject 0.5 mL into a large muscle now and repeat dose in 60 to 180 days 1 Each 1 10/13/19 23 Active Additional Information Patient not taking.Reported on 01/26/2024 Pantoprazole Sodium 40 MG Oral Tablet Delayed Release (Protonix)Indicati ons:Gastroesophage al reflux disease with esophagitis without hemorrhage Take 1 Tablet by mouth 2 times a day. 180 Tablet 3 07/19/20 23 Active Metoprolol Tartrate 25 MG Oral Tablet (Lopressor)Indicat ions:Palpitations, HTN, goal below 140/90,ASCVD (arteriosclerotic cardiovascular disease) TAKE ONE TABLET BY MOUTH TWICE DAILY, MAY TAKE EXTRA TABLET FOR ELEVATED HEART RATE 225 Tablet 3 07/19/20 23 Active Famotidine 20 MG Oral Tablet (Pepcid)Indication s:Gastroesophageal reflux disease with esophagitis without hemorrhage Take 1 Tablet by mouth in the morning and 1 Tablet before bedtime. 180 Tablet 3 08/23/19 24 Active Ketoconazole 2 % External Shampoo (Nizoral) Apply to scalp 2-3 Times a week leave on for five minutes before rinsing. 120 mL 5 09/06/19 24 Active Nitroglycerin 0.4 MG Sublingual Tablet Sublingual (Nitrostat)Indicat ions:ASCVD (arteriosclerotic cardiovascular disease) One tablet under tongue if needed for chest pain. May repeat 3 times. If chest pain continues, call 911 25 Tablet 2 11/14/19 24 Active Additional Information Patient not taking.Reported on 01/26/2024 Lisinopril 30 MG Oral TabletIndications: Hypertension goal BP (blood pressure) < 140/90 Take 1 Tablet by mouth every night at bedtime. 90 Tablet 3 12/27/19 24 Active B-12-SL 1000 MCG Sublingual Tablet Sublingual (Cyanocobalamin)In dications:B12 deficiency Place 1,000 mcg under the tongue in the morning. 90 Tablet 3 12/27/19 24 Active Lidocaine 5 % External Patch (Lidoderm)Indicati ons:Spinal arthritis Place 1 Patch over 12 hours topically on the skin daily. 30 Patch 12/27/19 24 Active Vitamin D (Ergocalciferol) 1.25 MG (64286 UT) Oral Capsule (Drisdol) TAKE ONE CAPSULE BY MOUTH ONCE WEEKLY 01/31/20 24 Active Torsemide 5 MG Oral Tablet (Demadex)Indicatio ns:Fluid retention TAKE ONE TABLET BY MOUTH twice WEEKLY NEEDED FOR swelling 20 Tablet 5 03/15/20 24 Active Rosuvastatin Calcium 20 MG Oral Tablet (Crestor)Indicatio ns:Dyslipidemia, goal LDL below 100 TAKE ONE TABLET BY MOUTH EVERY DAY 90 Tablet 1 03/22/20 24 Active LORazepam 0.5 MG Oral Tablet (Ativan)Indication s:Anxiety state,Panic disorder,Long-term current use of benzodiazepine TAKE ONE TABLET BY MOUTH EVERY 6 HOURS NEEDED 120 Tablet 2 04/13/20 24 Active amLODIPine Besylate 5 MG Oral Tablet (Norvasc)Indicatio ns:Hypertension goal BP (blood pressure) < 140/90 Take 1 Tablet by mouth in the morning and 1 Tablet before bedtime. 180 Tablet 1 04/13/20 24 Active documented as of this encounter (statuses as of 08/22/2024) Active Problems Problem Noted Date Diagnosed Date Chronic midline low back pain without sciatica 0 12/27/2023 Hypertensive heart and kidne y disease with chronic diastolic congestive heart failure and stage 3 chronic kidney disease 10/12/2022 Severe mitral regurgitation 10/12/2022 Hypertensive heart disease w ith chronic diastolic congestive heart failure 10/11/2022 Tachycardia 04/28/2021 Chronic diastolic congestive heart failure 12/03 Gastroesophageal reflux disease without esophagi tis 04/02/2014 Assessment & Plan (05/03/2022 4:40 PM EDT): Sx controlled with pantoprazole Hypertension goal BP (blood pressure) < 140/90 0 01/11/2013 ASCVD (arteriosclerotic cardiovascular disease) 01/11/2013 Assessment & Plan (05/03/2022 4:39 PM EDT): No angina sx -continue metoprolol, lisinopril, rosuvastatin, ASA, nitro prn Vitamin D deficiency 09/24/2011 Senile osteoporosis 09/24/2011 Sensorineural hearing loss, bilateral 12/10/2008 Insomnia 03/05/2008 Overview (05/02/2017): ICD-10 update of inactive term S/P angioplasty with stent 08/25/2007 Panic disorder 10/31/2002 Assessment & Plan (05/03/2022 4:40 PM EDT): Stable -continue ativan prn Constipation Overview (10/23/2015): ICD-10 update of inactive term Assessment & Plan (05/03/2022 4:43 PM EDT): Will try mag citrate. Encouraged continued prn suppositories and/or fleet enema -f/u phone call Dyslipidemia, goal LDL below 100 documented as of this encounter (statuses as of 08/22/2024) Resolved Problems Problem Noted Date Diagnosed Date Resolved Date Psoriasis 09/09/2022 09/13/2023 Falls, subsequent encounter 05/03/2022 10/11/2022 Assessment & Plan (05/03/2022 4:44 PM EDT): No falls in the last month. No dizziness. Gait/strength normal Hypertensive heart and kidne y disease with chronic diastolic congestive heart failure and stage 3 chronic kidney disease 03/31/202209/10 Assessment & Plan (05/03/2022 4:39 PM EDT): GFR 57 on 04/09/22 Minimal swelling in ankles-likely dependent. 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 02/27/202103/31 Overview (03/31/2022): Combo w/ CKD on PL Hypertensive kidney disease with chronic kidney disease stage III 11/24/2018 12/03/2020 Kidney disease, chronic, sta ge III (GFR 30-59 ml/min) 11/08/2017 12/13/2018 Overview: Per CKD protocol #1 Chest pain 05/09/2014 09/20/2017 Anxiety 05/09/2014 09/20/2017 Pharyngitis 04/02/2014 09/20/2017 Refused influenza vaccine 04/23/2013 Esophageal reflux 01/11/2013 09/20/2017 Hyperkalemia 01/11/2013 09/20/2017 Dysfunction of eustachian tube 01/11/2013 09/20/2017 Chronic rhinitis 01/11/2013 09/20/2017 Need for shingles vaccine 10/09/2012 Refused influenza vaccine 10/09/2012 Other and unspecified disc d isorder of lumbar region 04/07/2012 09/20/2017 Backache 04/07/2012 09/20/2017 Obstipation 12/07/2011 09/20/2017 Palpitations 09/24/2011 09/20/2017 Routine medical exam 09/24/2011 018 Hematuria 09/24/2011 09/20/2017 Overview (05/02/2017): ICD-10 update of inactive term Other symptoms involving uri nary system(788.99) 12/31/2010 09/20/2017 Hematuria 12/31/2010 09/24/2011 Overview (05/02/2017): ICD-10 update of inactive term Slow transit constipation 09/04/2010 Vaccination not carried out because of patient refusal 09/04/2010 09/20/2017 Routine medical exam 09/04/2010 018 TROCHANTERIC BURSITIS, LEFT 04/28/2010 09/20/2017 Vitamin D deficiency 09/04/2009 012 Dyslipidemia, goal LDL below 100 07/17/2009 01/26/2010 Overview (07/17/2009): Per Lipid Taxonomy. Dyslipidemia, goal LDL below 70 07/02/2009 03/17/2011 Menopause 12/26/2008 09/20/2017 Subjective tinnitus 12/10/2008 09/20/19 18 Impacted cerumen 12/10/2008 09/20/2017 Chronic otitis externa 12/10/200809/20 GRIEF REACTION 09/27/2008 09/20/2017 Need for prophylactic vaccin ation and inoculation against other viral diseases(V04.89) 09/27/2008 09/20/2017 Vaccination not carried out because of patient refusal 05/22/2008 09/20/2017 Screening for malignant neoplasm of breast 08/25/2007 10/09/2008 Overview (10/09/2008): Resolved per Screening Diagnosis Protocol #6 Disc disorder of lumbar region 03/10/2007 04/07/2012 HX-MAJOR CARDIOVASC SURG 08/19/2006 ADVANCE DIRECTIVE INFORMATION 05/19/2005 09/20/2017 ROUTINE MEDICAL EXAM 10/31/2002 018 SCREEN MAL NEOP-RECTUM 10/31/200210/09 Overview (10/09/2008): Resolved per Screening Diagnosis Protocol #6 FAMILY HX-GI MALIGNANCY 10/31/200209/02 Osteoporosis 10/31/2002 09/24/2011 Palpitations 09/20/2017 Menopause 09/20/2017 HEARING LOSS D-T NOISE 09/20 PURE HYPERCHOLESTEROLEM 07/01 Overview (07/17/2009): Per Lipid Taxonomy. ASCVD (arteriosclerotic card iovascular disease) 01/11/2013 Dyslipidemia, goal to be determined 06/25/2009 Overview (06/25/2009): Per Lipid Taxonomy Anxiety state 05/09/2014 HTN, goal below 130/80 09/24 HTN, goal below 140/90 10/23 documented as of this encounter (statuses as of 08/22/2024) Immunizations Name Administration Dates Next Due COVID-19 mRNA, LNP-s, No Pre serve, 2-Dose Series (Pfizer) 05/26/2021,10/30/2020,10/09/2020 Pneumococcal Conjugate Vacc, 13 Valent (Prevnar) 04/01/2021 Pneumococcal Polysaccharide PPV23 (Pneumovax) 02/15/2006,08/01/2000 TDAP (age 10 and older)(Boostrix) 08/01/2000 documented as of this encounter Social History Tobacco Use Types Packs/Day Years Used Date Smoking Tobacco: Never Smokeless Tobacco: Never Alcohol Use Standard Drinks/Week Comments No 0 (1 standard drink = 0.6 oz pur e alcohol) never PHQ-2 Answer Date Recorded PHQ Adult Total Score 0 10/12/2022 Hunger Vital Sign Answer Date Recorded Within the past 12 months, y ou worried that your food would run out before you got the money to buy more. Never true 10/13/19 23 Within the past 12 months, t he food you bought just didn't last and you didn't have money to get more. Never true 10/12/2022 Comments No Sex and Gender Information Value Date Recorded Sex Assigned at Female 10/12/2022 3:11 PM EDT Legal Sex Female 7:12 AM EST Gender Identity Not on file Sexual Orientation Not on file Occupation Industry Job Start Date Job End Date retired manager business process Not on file Not on file Not on fi le documented as of this encounter Plan of Treatment Upcoming Encounters Date Type Department Care Team (Late st Contact Info) Description 08/23/2024 11:30 AM EST Office Visit Cardiology [address] [place] [id number] Vivek Valentino PA-C [address] [place] [phone] 09/17/2024 11:20 AM EST Office Visit Family Medicine [address] [place] [phone] Sabrina Loya MD [address] [place] [address] [place] [phone] Health Maintenance Due Date Last Done Comments DXA Scan 09/30/2008 09/30/2005 Adult Wellness Visit 06/22/2020 06/22/2019 Depression Screening 10/13/2023 10/12/2022 COVID-19 Vaccine (4 - 2023-2 5 season) 2024 05/26/2021, 10/30/2020, 10/09/2020 Influenza Vaccine (FLU shot) (#1) 2024 018 (Declined) Zoster Vaccines Discontinued documented as of this encounter Medical Devices Not on filedocumented as of this encounter Care Teams [employer] Member Relationship Specialty Start Date End Date Pepper Horta CRNP [address] [place] [address] [place] [id number] PCP - General Nurse Practitioner 02/10/24 documented as of this encounter
--- OUTSIDE RECORDS SUMMARY | 2024-09-16 21:03 | External Medical Summary | Summary of Care ---
Author Name Unknown Organization [facility] Address [address] [facility] [place] [address] Phone [phone] Care Team Providers Care Bridal Consultant Name Role Phone Pepper Horta Primary Care Provider Reason for Visit * Reason Comments eRx-Medication Refill Encounter Details Date Type Department Care Team (Late st Contact Info) Description 04/11/2024 Refill Family Medicine [address] [phone] Kuldip Newman MD [address] [place] [address] [place] [address] Anxiety state; Panic disorder; Long-term current use of benzodiazepine; Hypertension goal BP (blood pressure) < 140/90 Allergies Active Allergy Reactions Criticality Noted Date Comments Hydrochlorothiazide 01/01/2021 documented as of this encounter (statuses as of 04/13/2024) Medications Medication Sig Dispensed Refills Start Date End Date Status ASPIRIN 81 MG PO CHEWIndications:ASC VD (arteriosclerotic cardiovascular disease),Routine medical exam,HTN, goal below 140/90 Take by mouth . 100 Tab 3 3 Active Fluocinonide 0.05 % External SolutionIndications :Scalp itch Apply topically to affected area daily. Apply to scalp once a day as needed for itch 60 mL 3 1 Active Clobetasol Propionate 0.05 % External Solution Apply to scalp twice daily for two week then use just weekends 50 mL 3 2 Active Zoster Vac Recomb Adjuvanted 50 MCG/0.5ML Intramuscular Suspension Reconstituted (Shingrix) Inject 0.5 mL into a large muscle now and repeat dose in 60 to 180 days 1 Each 1 3 Active Additional Information Patient not taking.Reported on 01/26/2024 Pantoprazole Sodium 40 MG Oral Tablet Delayed Release (Protonix)Indicatio ns:Gastroesophageal reflux disease with esophagitis without hemorrhage Take 1 Tablet by mouth 2 times a day. 180 Tablet 3 3 Active Metoprolol Tartrate 25 MG Oral Tablet (Lopressor)Indicati ons:Palpitations,HT N, goal below 140/90,ASCVD (arteriosclerotic cardiovascular disease) TAKE ONE TABLET BY MOUTH TWICE DAILY, MAY TAKE EXTRA TABLET FOR ELEVATED HEART RATE 225 Tablet 3 3 Active Famotidine 20 MG Oral Tablet (Pepcid)Indications :Gastroesophageal reflux disease with esophagitis without hemorrhage Take 1 Tablet by mouth in the morning and 1 Tablet before bedtime. 180 Tablet 3 4 Active Ketoconazole 2 % External Shampoo (Nizoral) Apply to scalp 2-3 Times a week leave on for five minutes before rinsing. 120 mL 5 4 Active Nitroglycerin 0.4 MG Sublingual Tablet Sublingual (Nitrostat)Indicati ons:ASCVD (arteriosclerotic cardiovascular disease) One tablet under tongue if needed for chest pain. May repeat 3 times. If chest pain continues, call 911 25 Tablet 2 4 Active Additional Information Patient not taking.Reported on 01/26/2024 Lisinopril 30 MG Oral TabletIndications:H ypertension goal BP (blood pressure) < 140/90 Take 1 Tablet by mouth every night at bedtime. 90 Tablet 3 4 Active B-12-SL 1000 MCG Sublingual Tablet Sublingual (Cyanocobalamin)Ind ications:B12 deficiency Place 1,000 mcg under the tongue in the morning. 90 Tablet 3 4 Active Lidocaine 5 % External Patch (Lidoderm)Indicatio ns:Spinal arthritis Place 1 Patch over 12 hours topically on the skin daily. 30 Patch 4 Active Vitamin D3 1.25 MG (39413 UT) Oral CapsuleIndications: Vitamin D deficiency Take 1 Capsule by mouth once a week. 12 Capsule 4 04/30/20 24 Active Vitamin D (Ergocalciferol) 1.25 MG (76342 UT) Oral Capsule (Drisdol) TAKE ONE CAPSULE BY MOUTH ONCE WEEKLY 4 Active Torsemide 5 MG Oral Tablet (Demadex)Indication s:Fluid retention TAKE ONE TABLET BY MOUTH twice WEEKLY NEEDED FOR swelling 20 Tablet 5 4 Active Rosuvastatin Calcium 20 MG Oral Tablet (Crestor)Indication s:Dyslipidemia, goal LDL below 100 TAKE ONE TABLET BY MOUTH EVERY DAY 90 Tablet 1 4 Active LORazepam 0.5 MG Oral Tablet (Ativan)Indications :Anxiety state,Panic disorder,Long-term current use of benzodiazepine TAKE ONE TABLET BY MOUTH EVERY 6 HOURS NEEDED 120 Tablet 2 4 Active amLODIPine Besylate 5 MG Oral Tablet (Norvasc)Indication s:Hypertension goal BP (blood pressure) < 140/90 Take 1 Tablet by mouth in the morning and 1 Tablet before bedtime. 180 Tablet 1 4 Active amLODIPine Besylate 5 MG Oral Tablet (Norvasc)Indication s:Hypertension goal BP (blood pressure) < 140/90 Take 1 Tablet by mouth in the morning and 1 Tablet before bedtime. 180 Tablet 1 4 04/13/20 24 Discontinued LORazepam 0.5 MG Oral Tablet (Ativan)Indications :Anxiety state,Panic disorder,Long-term current use of benzodiazepine TAKE ONE TABLET BY MOUTH EVERY 6 HOURS NEEDED 120 Tablet 2 4 04/13/20 24 Discontinued documented as of this encounter (statuses as of 04/13/2024) Active Problems Problem Noted Date Diagnosed Date [...] Gastroesophageal reflux disease without esophagi tis 04/02/2014 Last Assessment & Plan: Sx controlled with pantoprazole Hypertension goal BP (blood pressure) < 140/90 0 01/11/2013 ASCVD (arteriosclerotic cardiovascular disease) 01/11/2013 Last Assessment & Plan: No angina sx -continue metoprolol, lisinopril, rosuvastatin, ASA, nitro prn Vitamin D deficiency 09/24/2011 Senile osteoporosis 09/24/2011 Sensorineural hearing loss, bilateral 12/10/2008 Insomnia 03/05/2008 Overview: ICD-10 update of inactive term S/P angioplasty with stent 08/25/2007 Panic disorder 10/31/2002 Last Assessment & Plan: Stable -continue ativan prn Constipation Overview: ICD-10 update of inactive term Last Assessment & Plan: Will try mag citrate. Encouraged continued prn suppositories and/or fleet enema -f/u phone call Dyslipidemia, goal LDL below 100 documented as of this encounter (statuses as of 04/13/2024) Resolved Problems Problem Noted Date Diagnosed Date Resolved Date Psoriasis 09/09/2022 09/13/2023 Falls, subsequent encounter 05/03/2022 10/11/2022 Last Assessment & Plan: No falls in the last month. No dizziness. Gait/strength normal Hypertensive heart and kidne y disease with chronic diastolic congestive heart failure and stage 3 chronic kidney disease 03/31/202209/10 Last Assessment & Plan: GFR 57 on 04/09/22 Minimal swelling in ankles-likely dependent. 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 02/27/202103/31 Overview: Combo w/ CKD on PL Hypertensive kidney [...] medical exam 09/24/2011 018 Hematuria 09/24/2011 09/20/2017 Overview: ICD-10 update of inactive term Other symptoms involving uri nary system(788.99) 12/31/2010 09/20/2017 Hematuria 12/31/2010 09/24/2011 Overview: ICD-10 update of inactive term Slow transit constipation 09/04/2010 Vaccination not carried out because of patient refusal 09/04/2010 09/20/2017 Routine medical exam 09/04/2010 018 TROCHANTERIC BURSITIS, LEFT 04/28/2010 09/20/2017 Vitamin D deficiency 09/04/2009 012 Dyslipidemia, goal LDL below 100 07/17/2009 01/26/2010 Overview: Per Lipid Taxonomy. Dyslipidemia, goal LDL below 70 07/02/2009 03/17/2011 Menopause 12/26/2008 09/20/2017 Subjective tinnitus 12/10/2008 09/20/19 18 Impacted cerumen 12/10/2008 09/20/2017 Chronic otitis externa 12/10/200809/20 GRIEF REACTION 09/27/2008 09/20/2017 Need for prophylactic vaccin ation and inoculation against other viral diseases(V04.89) 09/27/2008 09/20/2017 Vaccination not carried out because of patient refusal 05/22/2008 09/20/2017 Screening for malignant neoplasm of breast 08/25/2007 10/09/2008 Overview: Resolved per Screening Diagnosis Protocol #6 Disc disorder of lumbar region 03/10/2007 04/07/2012 HX-MAJOR CARDIOVASC SURG 08/19/2006 ADVANCE DIRECTIVE INFORMATION 05/19/2005 09/20/2017 ROUTINE MEDICAL EXAM 10/31/2002 018 SCREEN MAL NEOP-RECTUM 10/31/200210/09 Overview: Resolved per Screening Diagnosis Protocol #6 FAMILY HX-GI MALIGNANCY 10/31/200209/02 Osteoporosis 10/31/2002 09/24/2011 Palpitations 09/20/2017 Menopause 09/20/2017 HEARING LOSS D-T NOISE 09/20 PURE HYPERCHOLESTEROLEM 07/01 Overview: Per Lipid Taxonomy. ASCVD (arteriosclerotic card iovascular disease) 01/11/2013 Dyslipidemia, goal to be determined 06/25/2009 Overview: Per Lipid Taxonomy Anxiety state 05/09/2014 HTN, goal below 130/80 09/24 HTN, goal below 140/90 10/23 documented as of this encounter (statuses as of 04/13/2024) Immunizations Name Administration Dates Next Due COVID-19 [...] money to get more. Never true 10/12/2022 Utilities Answer Date Recorded Do you have trouble paying y our heating, water, or electric bill? (Adult - for ages 18 years and over) Not on file 01/17/2024 Is your family able to pay t he heat, water, or electric bill? (Household - for ages 0-17 years) Not on file 01/17/2024 Does your family have access to good internet? (Household - for ages 0-17 years) Not on file 01/17/2024 Social Connections Answer Date Recorded How often do you feel lonely or isolated from those around you? (Adult - for ages 18 years and over) Not on file 01/17/2024 Sex and Gender Information Value Date Recorded Sex Assigned at Female 10/12/2022 3:11 PM EDT Gender Identity Not on file Sexual Orientation Not on file Job Start Date Occupation Industry Not on file Not on file Not on file documented as of this encounter Miscellaneous Notes * Telephone Encounter - Kuldip Newman MD - 04/13/2024 10:48 AM EDTSigned Prescriptions: Disp Refills LORazepam 0.5 MG Oral Tablet (Ativan) 120 Ta*2 Sig: TAKE ONE TABLET BY MOUTH EVERY 6 HOURS NEEDED Authorizing Provider: KULDIP NEWMAN amLODIPine Besylate 5 MG Oral Tablet (Norv*180 Ta*1 Sig: Take 1 Tablet by mouth in the morning and 1 Tablet before bedtime. Authorizing Provider: KULDIP NEWMAN User: FRANCA PAINTER * Telephone Encounter - Franca Painter [facility] - 04/13/2024 10:09 AM EDT Pending Prescriptions: Disp Refills LORazepam 0.5 MG Oral Tablet (Ativan) 120 Ta*2 Sig: TAKE ONE TABLET BY MOUTH EVERY 6 HOURS NEEDED Signed Prescriptions: Disp Refills amLODIPine Besylate 5 MG Oral Tablet (Norv*180 Ta*1 Sig: Take 1 Tablet by mouth in the morning and 1 Tablet before bedtime. Authorizing Provider: WENCESLAO NEWMAN Ordering User: FRANCA PAINTER * Telephone Encounter - Franca Painter [facility] - 04/13/2024 10:08 AM EDT I have reviewed the patients controlled substance dispensing history in the Prescription Drug Monitoring Program in compliance with the [facility] regulations before prescribing a controlled substance. PDMP checked on 04/13/2024. Pending Prescriptions: Disp Refills LORazepam 0.5 MG Oral Tablet (Ativan) [Ph*120 Ta*2 Sig: TAKE ONE TABLET BY MOUTH EVERY 6 HOURS NEEDED Signed Prescriptions: Disp Refills amLODIPine Besylate 5 MG Oral Tablet (Norv*180 Ta*1 Sig: Take 1 Tablet by mouth in the morning and 1 Tablet before bedtime. Authorizing Provider: KULDIP NEWMAN Ordering User: FRANCA PAINTER Last Visit: 12/27/2023 (in office), Visit date not found (telemedicine) Next Visit: 09/18/2024 Date medication was last filled: 03/09 Date medication is due for refill: 04/07 Pharmacy: [facility], [address] [place] Is this request for a controlled substance? Yes and Urine Drug Screen Not completed Toxicology results: No results found. However, due to the size of the patient record, not all encounters were searched.Please check Results Review for a complete set of results. Please approve if appropriate. Thanks, Franca Painter, PharmD Clinical Pharmacist Centralized [facility] Services [phone] 04/13/2024, 10:08 AM documented in this encounter Plan of Treatment Upcoming Encounters Date Type Department Care Team (Late st Contact Info) Description 08/23/2024 11:30 AM EST Office Visit Cardiology [address] [place] [phone] Vivek Valentino PA-C [address] [place] [phone] 09/18/2024 11:20 AM EST Office Visit Family Medicine [address] [place] [phone] Kuldip Newman MD [address] [place] [address] [place] [phone] Health Maintenance Due Date Last Done Comments DXA Scan 09/30/2008 09/30/2005 Adult Wellness Visit 06/22/2020 06/22/2019 Depression Screening 10/13/2023 10/12/2022 COVID-19 Vaccine (2023-2 5 season) 2024 05/26/2021, 10/30/2020, 10/09/2020 Influenza Vaccine (FLU shot) (#1) 2024 018 (Declined) Zoster Vaccines Discontinued documented as of this encounter Medical Devices Not on filedocumented as of this encounter Visit Diagnoses Diagnosis Anxiety state Anxiety state, unspecified Panic disorder Panic disorder without agoraphobia Long-term current use of benzodiazepine Hypertension goal BP (blood pressure) < 140/90 Unspecified essential hypertension documented in this encounter Care Teams Bridal Consultant Relationship Specialty Start Date End Date Pepper Horta CRNP [address] [place] [address] [place] [phone] PCP - General Nurse Practitioner 02/10/24 documented as of this encounter
--- OUTSIDE RECORDS SUMMARY | 2024-09-16 21:03 | External Medical Summary | Summary of Care ---
Author Name Unknown Organization [facility] Address [address] [facility] [place] [address] Phone [phone] Care Team Providers Care Cnc Mechanic Name Role Phone Pepper Horta Primary Care Provider Encounter Details Date Type Department Care Team (Late st Contact Info) Description 03/30/2024 Result Scan Unspecified Department <No scans attached> Allergies Active Allergy Reactions Criticality Noted Date Comments Hydrochlorothiazide 01/01/2021 documented as of this encounter (statuses as of 04/04/2024) Medications Medication Sig Dispensed Refills Start Date End Date Status ASPIRIN 81 MG PO CHEWIndications:ASCV D (arteriosclerotic cardiovascular disease),Routine medical exam,HTN, goal below 140/90 Take by mouth . 100 Tab 3 04/23/2013 Active Fluocinonide 0.05 % External SolutionIndications: Scalp itch Apply topically to affected area daily. Apply to scalp once a day as needed for itch 60 mL 3 01/20/2021 Active Clobetasol Propionate 0.05 % External Solution Apply to scalp twice daily for two week then use just weekends 50 mL 3 04/14/2022 Active Zoster Vac Recomb Adjuvanted 50 MCG/0.5ML Intramuscular Suspension Reconstituted (Shingrix) Inject 0.5 mL into a large muscle now and repeat dose in 60 to 180 days 1 Each 1 10/12/2022 Active Additional Information Patient not taking.Reported on 01/26/2024 Pantoprazole Sodium 40 MG Oral Tablet Delayed Release (Protonix)Indication s:Gastroesophageal reflux disease with esophagitis without hemorrhage Take 1 Tablet by mouth 2 times a day. 180 Tablet 3 07/19/2023 Active Metoprolol Tartrate 25 MG Oral Tablet (Lopressor)Indicatio ns:Palpitations,HTN, goal below 140/90,ASCVD (arteriosclerotic cardiovascular disease) TAKE ONE TABLET BY MOUTH TWICE DAILY, MAY TAKE EXTRA TABLET FOR ELEVATED HEART RATE 225 Tablet 3 07/19/2023 Active amLODIPine Besylate 5 MG Oral Tablet (Norvasc)Indications :Hypertension goal BP (blood pressure) < 140/90 Take 1 Tablet by mouth in the morning and 1 Tablet before bedtime. 180 Tablet 1 08/07/2023 Active Famotidine 20 MG Oral Tablet (Pepcid)Indications: Gastroesophageal reflux disease with esophagitis without hemorrhage Take 1 Tablet by mouth in the morning and 1 Tablet before bedtime. 180 Tablet 3 08/23/2023 Active Ketoconazole 2 % External Shampoo (Nizoral) Apply to scalp 2-3 Times a week leave on for five minutes before rinsing. 120 mL 5 09/06/2023 Active Nitroglycerin 0.4 MG Sublingual Tablet Sublingual (Nitrostat)Indicatio ns:ASCVD (arteriosclerotic cardiovascular disease) One tablet under tongue if needed for chest pain. May repeat 3 times. If chest pain continues, call 911 25 Tablet 2 11/14/2023 Active Additional Information Patient not taking.Reported on 01/26/2024 Lisinopril 30 MG Oral TabletIndications:Hy pertension goal BP (blood pressure) < 140/90 Take 1 Tablet by mouth every night at bedtime. 90 Tablet 3 12/27/2023 Active B-12-SL 1000 MCG Sublingual Tablet Sublingual (Cyanocobalamin)Edith cations:B12 deficiency Place 1,000 mcg under the tongue in the morning. 90 Tablet 3 12/27/2023 Active Lidocaine 5 % External Patch (Lidoderm)Indication s:Spinal arthritis Place 1 Patch over 12 hours topically on the skin daily. 30 Patch 12/27/2023 Active LORazepam 0.5 MG Oral Tablet (Ativan)Indications: Anxiety state,Panic disorder,Long-term current use of benzodiazepine TAKE ONE TABLET BY MOUTH EVERY 6 HOURS NEEDED 120 Tablet 2 01/09/2024 Active Vitamin D3 1.25 MG (44947 UT) Oral CapsuleIndications:V itamin D deficiency Take 1 Capsule by mouth once a week. 12 Capsule 01/31/2024 Active Vitamin D (Ergocalciferol) 1.25 MG (16494 UT) Oral Capsule (Drisdol) TAKE ONE CAPSULE BY MOUTH ONCE WEEKLY 01/31/2024 Active Torsemide 5 MG Oral Tablet (Demadex)Indications :Fluid retention TAKE ONE TABLET BY MOUTH twice WEEKLY NEEDED FOR swelling 20 Tablet 5 03/15/2024 Active Rosuvastatin Calcium 20 MG Oral Tablet (Crestor)Indications :Dyslipidemia, goal LDL below 100 TAKE ONE TABLET BY MOUTH EVERY DAY 90 Tablet 1 03/22/2024 Active documented as of this encounter (statuses as of 04/04/2024) Active Problems Problem Noted Date Diagnosed Date [...] as of this encounter (statuses as of 04/04/2024) Resolved Problems Problem Noted Date Diagnosed Date [...] as of this encounter (statuses as of 04/04/2024) Immunizations Name Administration Dates Next Due COVID-19 [...] on file documented as of this encounter Plan of Treatment Upcoming Encounters Date Type Department Care Team (Late st Contact Info) Description 08/23/2024 11:30 AM EST Office Visit Cardiology [address] [place] [address] Vivek Valentino PA-C [address] [place] [phone] 09/18/2024 11:20 AM EST Office Visit Family Medicine [address] [place] [phone] Sabrina Loya MD [address] [place] [address] [place] [address] Health Maintenance Due Date Last Done Comments DXA Scan 09/30/2008 09/30/2005 Adult Wellness Visit 06/22/2020 06/22/2019 Depression Screening 10/13/2023 10/12/2022 COVID-19 Vaccine (4 - 2022-2 4 season) 2024 05/26/2021, 10/30/2020, 10/09/2020 Influenza Vaccine (FLU shot) (#1) 2024 018 (Declined) Zoster Vaccines Discontinued documented as of this encounter Medical Devices Not on filedocumented as of this encounter Procedures Procedure Name Priority Date/Time Associated Diagnosis Comments PROCEDURE SCANNED RESULT 03/30/2024 documented in this encounter Results * PROCEDURE SCANNED RESULT (03/30/2024) 03/30/2024 No Physician Data Unknown SURGERY documented in this encounter Care Teams Cnc Mechanic Relationship Specialty Start Date End Date Pepper Horta CRNP [address] [place] [address] [place] [phone] PCP - General Nurse Practitioner 02/10/24 documented as of this encounter
--- OUTSIDE RECORDS SUMMARY | 2024-09-16 21:03 | External Medical Summary | Summary of Care ---
Author Name Unknown Organization [facility] Address [address] [facility] [place] [address] Phone [phone] Care Team Providers Care Sports Book Server Name Role Phone Pepper Horta Primary Care Provider Reason for Visit * Reason Comments eRx-Medication Refill Encounter Details Date Type Department Care Team (Late st Contact Info) Description 03/20/2024 Refill Family Medicine [address] [phone] Sabrina Loya MD [address] [place] [address] [place] [address] Dyslipidemia, goal LDL below 100 Allergies Active Allergy Reactions Criticality Noted Date Comments Hydrochlorothiazide 01/01/2021 documented as of this encounter (statuses as of 03/22/2024) Medications Medication Sig Dispensed Refills Start Date [...] HEART RATE 225 Tablet 3 3 Active amLODIPine Besylate 5 MG Oral Tablet (Norvasc)Indication s:Hypertension goal BP (blood pressure) < 140/90 Take 1 Tablet by mouth in the morning and 1 Tablet before bedtime. 180 Tablet 1 4 Active Famotidine 20 MG Oral Tablet (Pepcid)Indications [...] the skin daily. 30 Patch 4 Active LORazepam 0.5 MG Oral Tablet (Ativan)Indications :Anxiety state,Panic disorder,Long-term current use of benzodiazepine TAKE ONE TABLET BY MOUTH EVERY 6 HOURS NEEDED 120 Tablet 2 4 Active Vitamin D3 1.25 MG (34644 UT) Oral CapsuleIndications: Vitamin D deficiency Take 1 Capsule by mouth once a week. 12 Capsule 4 04/30/20 24 Active Vitamin D (Ergocalciferol) 1.25 MG (58034 UT) Oral Capsule (Drisdol) TAKE ONE CAPSULE BY MOUTH ONCE WEEKLY 4 Active Torsemide 5 MG Oral Tablet (Demadex)Indication s:Fluid retention TAKE ONE TABLET BY MOUTH twice WEEKLY NEEDED FOR swelling 20 Tablet 5 4 Active Rosuvastatin Calcium 20 MG Oral Tablet (Crestor)Indication s:Dyslipidemia, goal LDL below 100 TAKE ONE TABLET BY MOUTH EVERY DAY 90 Tablet 1 4 Active Rosuvastatin Calcium 20 MG Oral Tablet (Crestor)Indication s:Dyslipidemia, goal LDL below 100 TAKE ONE TABLET BY MOUTH EVERY DAY 90 Tablet 1 3 03/22/20 24 Discontinued documented as of this encounter (statuses as of 03/22/2024) Active Problems Problem Noted Date Diagnosed Date [...] as of this encounter (statuses as of 03/22/2024) Resolved Problems Problem Noted Date Diagnosed Date [...] as of this encounter (statuses as of 03/22/2024) Immunizations Name Administration Dates Next Due COVID-19 [...] encounter Miscellaneous Notes * Telephone Encounter - Greyson Richardson MD - 03/22/2024 11:01 AM EDTSigned Prescriptions: Disp Refills Rosuvastatin Calcium 20 MG Oral Tablet (Cr*90 Tab*1 Sig: TAKE ONE TABLET BY MOUTH EVERY DAY Authorizing Provider: GREYSON RICHARDSON * Telephone Encounter - Valerie Pennington RPh - 03/22/2024 10:04 AM EDTPending Prescriptions: Disp Refills Rosuvastatin Calcium 20 MG Oral Tablet [Ph*90 Tab*1 Sig: TAKE ONE TABLET BY MOUTH EVERY DAY * Telephone Encounter - Valerie Pennington RPh - 03/22/2024 10:03 AM EDT Please advise. Max dose patient should be on with renal function is 10 mg daily. However, patient previously had heart attack/stroke and no reports of muscle pain in chart. Serum creatinine: 1.3 mg/dL (H) 01/26/24 1357 Estimated creatinine clearance: 24.2 mL/min (A) Valerie Crespo Clinical Pharmacist [facility] ([facility]) [phone] 03/22/2024, 10:04 AM documented in this encounter Plan of Treatment Upcoming Encounters Date Type Department Care Team (Late st Contact Info) Description 08/23/2024 11:30 AM EST Office Visit Cardiology [address] [place] [address] Vivek Valentino PA-C [address] [place] [phone] 09/18/2024 11:20 AM EST Office Visit Family Medicine [address] [place] [phone] Sabrina Loya MD [address] [place] [address] [place] [phone] Health Maintenance Due Date Last Done Comments DXA Scan 09/30/2008 09/30/2005 Adult Wellness Visit 06/22/2020 06/22/2019 COVID-19 Vaccine (4 2022-2 4 season) 2023 05/26/2021, 10/30/2020, 10/09/2020 Depression Screening 10/13/2023 10/12/2022 Influenza Vaccine (FLU shot) (#1) 2024 018 (Declined) Zoster Vaccines Discontinued documented as of this encounter Medical Devices Not on filedocumented as of this encounter Visit Diagnoses Diagnosis Dyslipidemia, goal LDL below 100 Other and unspecified hyperlipidemia documented in this encounter Care Teams Sports Book Server Relationship Specialty Start Date End Date Pepper Horta CRNP [address] [place] [address] [place] [phone] PCP - General Nurse Practitioner 02/10/24 documented as of this encounter
[2024-09-16 21:39] LABS: Albumin Globulin Ratio 1.4 (0.9-2); Albumin Level 4.5 gm/dl (3.4-5.0); BUN Creatinine Ratio 17.6 (10-20); Bilirubin,Total 0.6 mg/dl (0.2-1.0); Calcium 9.6 mg/dl (8.6-10.3); Creatinine Clr Calc Pharmacy 22.9 ml/min; Globulin 3.3 gm/dl (2.5-4.0); Magnesium 2.3 mg/dl (1.7-2.4); Total Protein 7.8 gm/dl (6.0-8.3)
[2024-09-16 21:41] LABS: Basophils # (auto) 0.03 K/uL (0.00-0.20); Basophils % (auto) 0.4 %; Eosinophils # (auto) 0.18 K/uL (0.00-0.50); Eosinophils % (auto) 2.1 %; Hematocrit (blood only) 38.3 % (37.0-47.0); Hemoglobin 12.8 g/dl (12.0-16.0); Immature Granulocytes # (auto) 0.03 K/uL (0.01-0.20); Immature Granulocytes % (auto) 0.4 %; Lymphocytes # (auto) 1.78 K/uL (1.20-3.40); Lymphocytes % (auto) 21.1 %; Mean Corpuscular Hemoglobin 29.8 pg (25.0-34.0); Mean Corpuscular Hgb Conc 33.4 g/dL (32.0-36.0); Mean Corpuscular Volume 89.1 fL (80.0-100.0); Mean Platelet Volume 11.4 fL (9.4-12.4); Monocytes # (auto) 0.68 K/uL (0.11-0.59); Monocytes % (auto) 8.1 %; Neutrophils # (auto) 5.73 K/uL (1.40-6.50); Neutrophils % (auto) 67.9 %; Platelet Count 322 K/uL (130-400); RDW Coefficient of Variation 12.6 % (11.5-14.5); RDW Standard Deviation 41.4 fL (36.4-46.3); White Blood Count 8.43 K/ul (4.8-10.8)
[2024-09-16 21:44] LABS: Appearance Urine Clear (Clear); Bacteria Urine Automated None Seen (None Seen); Bilirubin Urine Negative (Negative); Blood Urine 1+ (Negative); Cast Urine Automated 0-2 /lpf (0-2); Color Urine Yellow; Epithelial Cell Urine Auto 0-2 /hpf (0-2); Glucose Urine UA Negative (Negative); Ketones Urine Negative (Negative); Leukocyte Esterase Urine 1+ (Negative); Nitrite Urine Negative (Negative); Protein Urine Negative (Negative); RBC Urine Automated 0-2 /hpf (0-2); Specific Gravity Urine 1.009 (1.000-1.030); Urobilinogen Urine Negative (Negative); WBC Urine Automated 0-5 /hpf (0-5)
[2024-09-16 21:45] LABS: Troponin I High Sensitivity 4.2 pg/ml (0-14)
[2024-09-16] MEDS ORDERED: NITROGLYCERIN SL 0.4 MG/TAB TAB SL PRN (21:45)
[2024-09-16 21:48] LABS: INR 0.9 (0.9-1.1); Prothrombin Time 9.9 Seconds (9.0-12.0)
--- NOTE | 2024-09-16 22:49 | XRay Report ---
Exam(s): XR CXR 1 VIEW EXAM: XR Chest, 1 View CLINICAL HISTORY: Reason for exam: Chest pain, nonspecific. TECHNIQUE: Frontal view of the chest. COMPARISON: No relevant prior studies available. FINDINGS: Lungs: The lungs are mildly hyperinflated with a prominent interstitial markings suggesting mild emphysema. No acute focal infiltrate or consolidation is seen. Pleural space: Unremarkable. No pneumothorax. Heart: Possible 6 cm hiatal hernia located behind the heart. No cardiomegaly. Mediastinum: Unremarkable. Normal mediastinal contour. Bones/joints: Unremarkable. No acute fracture. Vasculature: The aortic arch is mildly calcified. Upper abdomen: There is no pneumoperitoneum under the diaphragm. IMPRESSION: 1. The lungs are mildly hyperinflated with a prominent interstitial markings suggesting mild emphysema. No acute focal infiltrate or consolidation is seen. 2. Possible 6 cm hiatal hernia located behind the heart. Electronically signed by: Juan Diego Cisneros MD 09/16/24 22:48 PM
[2024-09-16] MEDS: MoRPHine SULFATE 2 MG/ML CARP IV STA (23:19)
[2024-09-16] MEDS: ONDANSETRON INJ 2 MG/ML 2 ML VIAL IV STA (23:19)
[2024-09-16] MEDS: OPTIRAY 320 125ml IV ONE (23:40)
[2024-09-17] MEDS: ACETAMINOPHEN 1000 MG/100 ML IV IV ONE (00:19)
[2024-09-17] MEDS: ACETAMINOPHEN 1,000 MG/100 ML VIAL IV STA (00:34)
--- NOTE | 2024-09-17 00:35 | CT Scan Report ---
Exam(s): CTA CHEST IV Amt: 118 ml optiray 320 EXAM: CT Angiography Chest With Intravenous Contrast CLINICAL HISTORY: Reason for exam: Chest Pain, eval for PE. TECHNIQUE: Axial computed tomographic angiography images of the chest with intravenous contrast. CTDI is 11.2 mGy and DLP is 331 mGy-cm. Automated exposure control was utilized for the study. A dose lowering technique was utilized adhering to the principles of ALARA. MIP reconstructed images were created and reviewed. COMPARISON: Chest x-ray from September 16, [address] abdomen and pelvis from October 28, 2021 FINDINGS: Pulmonary arteries: The pulmonary arterial tree is well opacified with contrast. No pulmonary embolism is identified. Aorta: The thoracic aorta is mildly calcified but nondilated. There is no aneurysm or dissection. Lungs: Scattered linear densities in both lung bases may represent subsegmental atelectasis, less likely edema. No focal consolidation is seen. Pleural space: Unremarkable. No significant effusion. No pneumothorax. Heart: Mild cardiomegaly with moderate coronary calcification involve the LAD and circumflex. No pericardial effusion is seen. No evidence of RV dysfunction. Mediastinum: There is a 6 cm hiatal hernia located behind the heart. Bones/joints: Mild degenerative changes and scoliosis in the spine. No fracture or destructive bone lesion is seen. No dislocation. Soft tissues: Unremarkable. Lymph nodes: Unremarkable. No enlarged lymph nodes. IMPRESSION: 1. The pulmonary arterial tree is well opacified with contrast. No pulmonary embolism is identified. 2. The thoracic aorta is mildly calcified but nondilated. There is no aneurysm or dissection. 3. Scattered linear densities in both lung bases may represent subsegmental atelectasis, less likely edema. No focal consolidation is seen. Electronically signed by: Juan Diego Cisneros MD 09/17/24 00:34 AM
--- NOTE | 2024-09-17 00:42 | History & Physical Report ---
Date of Service September 17, 2024 Assessment & Plan (1) Chest pain: Plan: 88-year-old female with past medical history significant for dyslipidemia, chronic diastolic CHF, hypertension, CKD stage III, severe mitral regurgitation, constipation, GERD, vitamin D deficiency, osteoporosis, bilateral sensorineural hearing loss, chronic low back pain, panic disorder, CAD status post stent, insomnia who lives alone and ambulates without support comes with chest pain. Patient says since yesterday morning she is having chest pain. In the morning she took 3 nitro and the pain subsided for some time it came back again and she took 3-4 aspirins and it seemed to help. Again the pain came back and she took some Ativan which seemed to help little bit but again pain was coming back and then decided come to the ER. Patient still having pain in the middle of the ch est. Hard of hearing. Daughter in the room. No nausea. No sweating. No dizziness. No cough. No fevers. No runny nose or sore throat. No abdominal pain. Normal bowel and bladder movements. Hemodynamics are okay. Chest pain Ongoing since morning Initial troponin negative EKG no acute findings CTA chest no acute findings Will follow serial cardiac enzymes and echo N.p.o. Telemetry Consult cardiology in a.m. History of CAD status post stent On aspirin, statin and beta-reynold Hypertension On amlodipine, lisinopril and Lopressor Will monitor GERD On Protonix and famotidine Chronic diastolic CHF Severe mitral regurgitation On torsemide 5 mg twice weekly as needed DVT prophylaxis SCDs Observation telemetry Full code History of Present Illness Chief Complaint: Chest pain Primary Care Provider: Sabrina Gary MD 88-year-old female with past medical history significant for dyslipidemia, chronic diastolic CHF, hypertension, CKD stage III, severe mitral regurgitation, constipation, GERD, vitamin D deficiency, osteoporosis, bilateral sensorineural hearing loss, chronic low back pain, panic disorder, CAD status post stent, insomnia who lives alone and ambulates without support comes with chest pain. Patient says since yesterday morning she is having chest pain. In the morning she took 3 nitro and the pain subsided for some time it came back again and she took 3-4 aspirins and it seemed to help. Again the pain came back and she took some Ativan which seemed to help little bit but again pain was coming back and then decided come to the ER. Patient still having pain in the middle of the chest. Hard of hearing. Daughter in the room. No nausea. No sweating. No dizziness. No cough. No fevers. No runny nose or sore throat. No abdominal pain. Normal bowel and bladder movements. Hemodynamics are okay. Past medical history. As mentioned above Past surgical history. Colonoscopy., Right and left heart cath. Coronary artery dilatation PTCA with stent x 2. Cystoscopy . EGD. Echo Tech vein ligation of varicose veins. Removal of ovary. Vaginal hysterectomy. Social history. . No smoking. No alcohol use. No drug use. Family history. Brother had leukemia. CABG. Manic depression. CAD. Mother had CAD. Colon cancer. Sister had CABG. Allergies Allergy/AdvReac Type Severity Reaction Status Date / Time hydrochlorothiazide Allergy Unknown Verified 07/13/23 18:51 metoprolol AdvReac Unknown TOPROL RXN Verified 10/28/21 02:01 (CHEST HEAVINESS) LOPRESSOR [place] Home Medications Medication Instructions Recorded Confirmed Type amlodipine 5 mg tablet 5 mg PO BID 09/17/24 09/17/24 History aspirin 81 mg tablet,delayed 81 mg PO DAILY 09/17/24 09/17/24 History release cyanocobalamin (vitamin B-12) 1,000 mcg PO DAILY 09/17/24 09/17/24 History 1,000 mcg tablet (Vitamin B-12) ergocalciferol (vitamin D2) 1,250 50,000 unit PO WK 09/17/24 09/17/24 History mcg (50,000 unit) capsule (Vitamin D2) famotidine 20 mg tablet 20 mg PO BID 09/17/24 09/17/24 History lisinopril 30 mg tablet 30 mg PO HS 09/17/24 09/17/24 History lorazepam 0.5 mg tablet 0.5 mg PO Q6H PRN Anxiety 09/17/24 09/17/24 History metoprolol tartrate 25 mg tablet 25 mg PO BID 09/17/24 09/17/24 History nitroglycerin 0.4 mg sublingual 0.4 mg sublingual UD 09/17/24 09/17/24 History tablet pantoprazole 40 mg tablet,delayed 40 mg PO BID 09/17/24 09/17/24 History release rosuvastatin 20 mg tablet 20 mg PO DAILY 09/17/24 09/17/24 History torsemide 5 mg tablet 5 mg PO UD 09/17/24 09/17/24 History Past Med/Surg History Problem List (Updated 09/17/24 @ 01:49 by Scotty Miner MD) Chest pain (Acute) Chest pain S/P laparoscopic cholecystectomy H/O varicose vein stripping (Chronic) History of hysterectomy (Chronic) GERD (gastroesophageal reflux disease) (Chronic) CKD (chronic kidney disease), stage III (Chronic) Hypertension (Chronic) Dyslipidemia (Chronic) CAD (coronary artery disease) (Chronic) "2005-S/P WALDO to LAD and left circumflex" Anxiety (Chronic) Medical History Hypertension Chest pain due to GERD GERD (gastroesophageal reflux disease) CKD (chronic kidney disease), stage III Hypertension Dyslipidemia CAD (coronary artery disease) "2005-S/P WALDO to LAD and left circumflex" Anxiety Surgical History S/P laparoscopic cholecystectomy H/O varicose vein stripping History of hysterectomy Social History Smoking Status: Never smoker Second Hand Exposure: No; Do You Dip or Chew Tobacco: No; Tobacco Cessation Education Requested by Patient: No Hx Alcohol Use: No Hx Substance Use: Yes Preferred Language: Ecuadorean Communication Ability: Effective Warp Tension Tester Required: No Beliefs That Will Affect Care: None Current Living Situation: Alone Other Information That Helps Us Care for You: No Feels Safe at Home: Yes Safety Concerns: Feels Safe At This Time Assistive Devices: Denture - Upper, Denture - Lower and Hearing Aid - Bilateral Review of Systems Review of Systems: All systems reviewed & are unremarkable except as noted in HPI & below Physical Exam Physical Exam: General- Not in distress Head- atraumatic Eyes- PERRL. ENT- oropharynx clear Neck- supple, no JVD. Lungs- clear to auscultation no wheezing or crackles Heart- regular rate and rhythm; no murmur, no gallop. Abdomen- normal bowel sounds, soft, nontender, no distension. Extremities- no pretibial edema, no erythema seen Neuro- alert, oriented PERRL, no facial palsy; no dysarthria; moves extremities Results & Data Results & Data Vital Signs (Past 12 Hours) Vital Signs Temp Pulse Pulse Resp BP BP Pulse Ox 09/16/24 23:43 90 20 174/104 H 98 09/16/24 23:01 80 20 174/80 H 96 09/16/24 22:00 79 18 166/83 H 97 09/16/24 21:04 81 09/16/24 21:04 09/16/24 21:03 97 09/16/24 21:03 36.7 C 80 18 157/78 H 97 09/16/24 21:03 O2 Del Method 09/16/24 23:43 Room Air 09/16/24 23:01 Room Air 09/16/24 22:00 Room Air 09/16/24 21:04 09/16/24 21:04 Room Air 09/16/24 21:03 Room Air 09/16/24 21:03 Room Air 09/16/24 21:03 Room Air Diagnostic Findings Laboratory Results WBC 8.43 K/ul (4.8-10.8) 09/16/24 20: RBC 4.30 M/uL (4.20-5.40) 09/16/24 20: Hgb 12.8 g/dl (12.0-16.0) 09/16/24 20: Hct 38.3 % (37.0-47.0) 09/16/24 20: MCV 89.1 fL (80.0-100.0) 09/16/24 20: MCH 29.8 pg (25.0-34.0) 09/16/24: MCHC 33.4 g/dL (32.0-36.0) 09/16/24 20: RDW Std Deviation 41.4 fL (36.4-46.3) 09/16/24 20: RDW Coeff of Lydia 12.6 % (11.5-14.5) 09/16/24 20: Plt Count 322 K/uL (130-400) 09/16/24 20: MPV 11.4 fL (9.4-12.4) 09/16/24 20: Immature Gran % (Auto) 0.4 % 09/16/24: Neut % (Auto) 67.9 % 09/16/24 20: Lymph % (Auto) 21.1 % 09/16/24 20: Elbert % (Auto) 8.1 % 09/16/24: Eos % (Auto) 2.1 % 09/16/24: Baso % (Auto) 0.4 % 09/16/24: Neut # (Auto) 5.73 K/uL (1.40-6.50) 09/16/24: Lymph # (Auto) 1.78 K/uL (1.20-3.40) 09/16/24: Elbert # (Auto) 0.68 K/uL (0.11-0.59) H 09/16/24: Eos # (Auto) 0.18 K/uL (0.00-0.50) 09/16/24: Baso # (Auto) 0.03 K/uL (0.00-0.20) 09/16/24: Immature Gran # (Auto) 0.03 K/uL (0.01-0.20) 09/16/24: PT 9.9 Seconds (9.0-12.0) 09/16/24: INR 0.9 (0.9-1.1) 09/16/24 20: Sodium 136 mmol/L (136-145) 09/16/24: Potassium 4.0 mmol/L (3.5-5.1) 09/16/24: Chloride 104 mmol/L (98-107) 09/16/24: Carbon Dioxide 23 mmol/L (21-32) 09/16/24: Anion Gap 9 (3-11) 09/16/24 20: BUN 24 mg/dl (6-23) H 09/16/24: Creatinine 1.36 mg/dl (0.6-1.2) H 09/16/24 20: Est Cr Clr Drug Dosing 22.9 ml/min 09/16/24 20: eGFR 37.23 09/16/24: BUN/Creatinine Ratio 17.6 (10-20) 09/16/24: Glucose 103 mg/dl (70-99(Fasting)) H 09/16/24:31 Calcium 9.6 mg/dl (8.6-10.3) 09/16/24 20: Magnesium 2.3 mg/dl (1.7-2.4) 09/16/24 20: Total Bilirubin 0.6 mg/dl (0.2-1.0) 09/16/24 20: AST 14 U/L (13-39) 09/16/24 20: ALT 8 U/L (7-52) 09/16/24 20: Alkaline Phosphatase 65 U/L (34-104) 09/16/24 20: Troponin I High Sens 4.2 pg/ml (0-14) 09/16/24 20: B-Natriuretic Peptide 253 pg/ml (0-100) H 09/16/24 20: Total Protein 7.8 gm/dl (6.0-8.3) 09/16/24 20: Albumin 4.5 gm/dl (3.4-5.0) 09/16/24: Globulin 3.3 gm/dl (2.5-4.0) 09/16/24 20: Albumin/Globulin Ratio 1.4 (0.9-2) 09/16/24 20: Lipase 51 U/L (11-82) 09/16/24 20: Urine Color Yellow 09/16/24: Urine Appearance Clear (Clear) 09/16/24 21: Urine pH 6.0 (4.5-7.5) 09/16/24 21: Ur Specific [place] 1.009 (1.000-1.030) 09/16/24: Urine Protein Negative (Negative) 09/16/24: Urine Glucose (UA) Negative (Negative) 09/16/24: Urine Ketones Negative (Negative) 09/16/24: Urine Blood 1+ (Negative) H 09/16/24: Urine Nitrite Negative (Negative) 09/16/24: Urine Bilirubin Negative (Negative) 09/16/24 21: Urine Urobilinogen Negative (Negative) 09/16/24: Ur Leukocyte Esterase 1+ (Negative) H 09/16/24 21: Urine WBC (Auto) 0-5 /hpf (0-5) 02/16/25 21:26 Urine RBC (Auto) 0-2 /hpf (0-2) 09/16/24 21:26 U Hyaline Cast (Auto) 0-2 /lpf (0-2) 09/16/24 21:26 U Epithel Cells (Auto) 0-2 /hpf (0-2) 09/16/24 21:26 Urine Bacteria (Auto) None Seen (None Seen) 09/16/24 21:26 Impressions Chest X-Ray 09/16/24 21:04 Exam(s): XR CXR 1 VIEW EXAM: XR Chest, 1 View CLINICAL HISTORY: Reason for exam: Chest pain, nonspecific. TECHNIQUE: Frontal view of the chest. COMPARISON: No relevant prior studies available. FINDINGS: Lungs: The lungs are mildly hyperinflated with a prominent interstitial markings suggesting mild emphysema. No acute focal infiltrate or consolidation is seen. Pleural space: Unremarkable. No pneumothorax. Heart: Possible 6 cm hiatal hernia located behind the heart. No cardiomegaly. Mediastinum: Unremarkable. Normal mediastinal contour. Bones/joints: Unremarkable. No acute fracture. Vasculature: The aortic arch is mildly calcified. Upper abdomen: There is no pneumoperitoneum under the diaphragm. IMPRESSION: 1. The lungs are mildly hyperinflated with a prominent interstitial markings suggesting mild emphysema. No acute focal infiltrate or consolidation is seen. 2. Possible 6 cm hiatal hernia located behind the heart. Electronically signed by: Juan Diego Cisneros MD 09/16/24 22:48 PM Chest CTA 09/16/24 23:12 Exam(s): CTA CHEST IV Amt: 118 ml optiray 320 EXAM: CT Angiography Chest With Intravenous Contrast CLINICAL HISTORY: Reason for exam: Chest Pain, eval for PE. TECHNIQUE: Axial computed tomographic angiography images of the chest with intravenous contrast. CTDI is 11.2 mGy and DLP is 331 mGy-cm. Automated exposure control was utilized for the study. A dose lowering technique was utilized adhering to the principles of ALARA. MIP reconstructed images were created and reviewed. COMPARISON: Chest x-ray from September 16, [address] abdomen and pelvis from October 28, 2021 FINDINGS: Pulmonary arteries: The pulmonary arterial tree is well opacified with contrast. No pulmonary embolism is identified. Aorta: The thoracic aorta is mildly calcified but nondilated. There is no aneurysm or dissection. Lungs: Scattered linear densities in both lung bases may represent subsegmental atelectasis, less likely edema. No focal consolidation is seen. Pleural space: Unremarkable. No significant effusion. No pneumothorax. Heart: Mild cardiomegaly with moderate coronary calcification involve the LAD and circumflex. No pericardial effusion is seen. No evidence of RV dysfunction. Mediastinum: There is a 6 cm hiatal hernia located behind the heart. Bones/joints: Mild degenerative changes and scoliosis in the spine. No fracture or destructive bone lesion is seen. No dislocation. Soft tissues: Unremarkable. Lymph nodes: Unremarkable. No enlarged lymph nodes. IMPRESSION: 1. The pulmonary arterial tree is well opacified with contrast. No pulmonary embolism is identified. 2. The thoracic aorta is mildly calcified but nondilated. There is no aneurysm or dissection. 3. Scattered linear densities in both lung bases may represent subsegmental atelectasis, less likely edema. No focal consolidation is seen. Electronically signed by: Juan Diego Cisneros MD 09/17/24 00:34 AM ECG Additional Comments: ECG. Normal sinus rhythm rate of 85. No acute ST changes seen. Code Status & VTE Plan VTE Prophylaxis Plan VTE Prophylaxis will be ordered: Yes
[2024-09-17] MEDS: PANTOprazole 40 MG TAB PO STA (01:10)
[2024-09-17] MEDS: SUCRALFATE 1 GM TAB PO STA (01:10)
[2024-09-17] MEDS: amLODIPine BESYLATE 5 MG TAB PO ONE (01:10)
[2024-09-17] MEDS: lisinopril 10 MG TAB PO STA (01:10)
[2024-09-17] MEDS: ALUMINUM/MAGNESIUM SUSP 30 ML UDC PO STA (01:10)
[2024-09-17] MEDS: FAMOTIDINE 20 MG TAB PO ONE (01:11)
[2024-09-17] MEDS: METOPROLOL TARTRATE 25 MG TAB PO STA (01:11)
--- NOTE | 2024-09-17 01:49 | Emergency Department Note ---
Impression & Plan Chest pain ED Provider Note NAME: PAMELA HITCHCOCK AGE: 88 SEX: Female INFORMANT: Patient ED PROVIDER(S): Scotty Miner MD CHIEF COMPLAINT: Chest pain PLAN: Disposition: Admitted Outpatient prescription management: none Referral: None MEDICAL DECISION MAKING: Patient presented because of chest pain. She had a concerning cardiac history. Her ECG was nonischemic. CBC and chemistry panel was unremarkable. Patient has slight elevation of BNP but negative cardiac troponin. She was treated with sublingual nitroglycerin. She still noted discomfort. I did discuss treatment with a low-dose of morphine and Zofran. Patient initially excepted and then this medication was not given as she noted to the nurse that she has had an adverse reaction in the past. Chest x-ray was unremarkable and CT imaging was performed. No evidence of pulmonary embolism or other emergent pathology. Further management in the hospital be necessary. Consultation was made with the [facility] Hospitalist service, Dr. Espinoza. Patient was evaluated in the ER and admitted for further management Care/management discussed with: manager of compensation Level of care consideration(s): After review of the information above and other included data, I feel the patient requires escalation of care to admission Triage Nursing notes: reviewed and agree them. Vital Signs: reviewed and remarkable for hypertension Additional History obtained from: None Chronic Medical/Social Conditions affecting care: CAD, hypertension Prior/ Outside/ External records reviewed: none Differential Diagnosis: Cardiac ischemia, aortic dissection, pulmonary embolism, pneumothorax, pneumonia, pericarditis, myocarditis, esophageal rupture, GERD, cholecystitis, pancreatitis, musculoskeletal, as well as other pathologies. Diagnostics, independently interpreted by me: ECG: Complete ECG with normal sinus rhythm at 85 bpm. Anterior Q waves present. No ST elevation. Cardiac Monitoring: Cardiac monitoring ordered by me: The patient was placed on continuous cardiac monitoring and observed. It revealed a normal sinus rhythm at 77 beats per minute without ectopy or evidence of dysrhythmia. Medical decision rules: none Imaging studies: Chest x-ray. Findings: A chest x-ray was performed and revealed no pneumothorax, effusion, infiltrate, pulmonary edema, free air under the diaphragm, or wide mediastinum. Impression: No acute disease. CT scan of the chest reveals no evidence of pulmonary embolism. I refer you to the EMR for further details. HPI: 88 year old Female arrives for evaluation of chest pain. This started this morning and is intermittent. The patient also notes the following associated symptoms, none. The patient has taken multiple doses of nitroglycerin for relieving factors. Current pain is rated as 2/10. Patient took aspirin prior to coming to the Emergency Department. Patient was given 1 nitroglycerin by EMS and states that did not seem to make a big difference. Pt denies LOC, headache, fevers, chills, diaphoresis, visual changes, neck pain, breathing difficulties, nausea, vomiting, abdominal pain, back pain, melena, hematochezia, urinary symptoms, numbness, weakness, lymphadenopathy, rash, or other complaints.. PAST MEDICAL HISTORY: See Below, CAD PAST SURGICAL HISTORY: See Below, SOCIAL HISTORY: See Below, retired HOME MEDICATIONS: See Below ALLERGIES: See Below VITALS: See Below PHYSICAL EXAMINATION: GENERAL: Awake, alert, [id number], in no distress HENT: Normocephalic, atraumatic. Oropharynx unremarkable. Hard of hearing. EYES: Normal conjunctiva. Sclera non-icteric. NECK: Inspection normal. Non-tender. Supple. No nuchal rigidity. FROM. No masses. RESPIRATORY: Clear to auscultation. No wheezes. No rales. Normal respiratory effort. CARDIAC: Normal rate. Normal rhythm. No murmurs. No rubs. Extremities warm and well perfused. Pulses equal. No JVD. GI: Soft, non-distended. No tenderness to palpation. No rebound or guarding. No masses. RECTAL: Deferred. MUSCULOSKELETAL: Atraumatic. Chest examination reveals no tenderness. The back is symmetrical on inspection without obvious abnormality. There is no CVA tenderness to palpation. No joint edema. LOWER EXTREMITIES: Calves are equal size bilaterally and non-tender. 1+ edema. No discoloration. NEURO: Normal sensorium. No sensory or motor deficits noted. SKIN: No rash or jaundice noted. PROCEDURES: none CRITICAL CARE: none OBSERVATION NOTE: none Past Med/Surg History Problem List (Updated 09/17/24 @ 01:49 by Scotty Miner MD) Chest pain (Acute) Chest pain S/P laparoscopic cholecystectomy H/O varicose vein stripping (Chronic) History of hysterectomy (Chronic) GERD (gastroesophageal reflux disease) (Chronic) CKD (chronic kidney disease), stage III (Chronic) Hypertension (Chronic) Dyslipidemia (Chronic) CAD (coronary artery disease) (Chronic) "2005-S/P WALDO to LAD and left circumflex" Anxiety (Chronic) Medical History Hypertension Chest pain due to GERD GERD (gastroesophageal reflux disease) CKD (chronic kidney disease), stage III Hypertension Dyslipidemia CAD (coronary artery disease) "2005-S/P WALDO to LAD and left circumflex" Anxiety Surgical History S/P laparoscopic cholecystectomy H/O varicose vein stripping History of hysterectomy Social History Smoking Status: Never smoker Second Hand Exposure: No; Do You Dip or Chew Tobacco: No; Tobacco Cessation Education Requested by Patient: No Hx Alcohol Use: No Hx Substance Use: Yes Preferred Language: Syriac Communication Ability: Effective Electrical And Instrumentation Manager Required: No Beliefs That Will Affect Care: None Current Living Situation: Alone Other Information That Helps Us Care for You: No Feels Safe at Home: Yes Safety Concerns: Feels Safe At This Time Assistive Devices: Denture - Upper, Denture - Lower and Hearing Aid - Bilateral Allergies Allergies Allergy/AdvReac Type Severity Reaction Status Date / Time hydrochlorothiazide Allergy Unknown Verified 07/13/23 18:51 metoprolol AdvReac Unknown TOPROL RXN Verified 10/28/21 02:01 (CHEST HEAVINESS) LOPRESSOR [place] Home Meds Home Medications Medication Instructions Recorded Confirmed amlodipine 5 mg tablet 5 mg PO BID 09/17/24 09/17/24 aspirin 81 mg tablet,delayed 81 mg PO DAILY 09/17/24 09/17/24 release cyanocobalamin (vitamin B-12) 1,000 mcg PO DAILY 09/17/24 09/17/24 1,000 mcg tablet (Vitamin B-12) ergocalciferol (vitamin D2) 1,250 50,000 unit PO WK 09/17/24 09/17/24 mcg (50,000 unit) capsule (Vitamin D2) famotidine 20 mg tablet 20 mg PO BID 09/17/24 09/17/24 lisinopril 30 mg tablet 30 mg PO HS 09/17/24 09/17/24 lorazepam 0.5 mg tablet 0.5 mg PO Q6H PRN Anxiety 09/17/24 09/17/24 metoprolol tartrate 25 mg tablet 25 mg PO BID 09/17/24 09/17/24 nitroglycerin 0.4 mg sublingual 0.4 mg sublingual UD 09/17/24 09/17/24 tablet pantoprazole 40 mg tablet,delayed 40 mg PO BID 09/17/24 09/17/24 release rosuvastatin 20 mg tablet 20 mg PO DAILY 09/17/24 09/17/24 torsemide 5 mg tablet 5 mg PO UD 09/17/24 09/17/24 Results & Data (ED) Vital Signs Vital Signs - 24 hr 09/16/24 21:03 09/16/24 21:03 09/16/24 21:03 Temperature 36.7 C Temperature Source Oral Pulse Rate 80 Pulse Rate [Apical] Pulse Rhythm Regular Pulse Strength Normal Respiratory Rate 18 Respiratory Effort / Characteristics Non-Labored Spontaneous Non-Labored Spontaneous Respiratory Depth Normal Normal Respiratory Pattern Regular Blood Pressure 157/78 H Blood Pressure [Right Arm] Blood Pressure Mean 104 Blood Pressure Mean [Right Arm] Blood Pressure Position Semi-fowlers Blood Pressure Position [Right Arm] Pulse Oximetry 97 97 Oxygen Delivery Method Room Air Room Air Room Air Sepsis Recent Fever Within 48 Hours No Sepsis New/Unexplained Change in Mental Status N/A Sepsis Action Taken by Nursing No Action Required 09/16/24 21:04 09/16/24 21:04 09/16/24 22:00 Temperature Temperature Source Pulse Rate 81 Pulse Rate [Apical] 79 Pulse Rhythm Pulse Strength Respiratory Rate 18 Respiratory Effort / Characteristics Respiratory Depth Respiratory Pattern Blood Pressure Blood Pressure [Right Arm] 166/83 H Blood Pressure Mean Blood Pressure Mean [Right Arm] 110 Blood Pressure Position Blood Pressure Position [Right Arm] Semi-fowlers Pulse Oximetry 97 Oxygen Delivery Method Room Air Room Air Sepsis Recent Fever Within 48 Hours Sepsis New/Unexplained Change in Mental Status Sepsis Action Taken by Nursing 09/16/24 23:01 09/16/24 23:43 Temperature Temperature Source Pulse Rate Pulse Rate [Apical] 80 90 Pulse Rhythm Pulse Strength Respiratory Rate 20 20 Respiratory Effort / Characteristics Non-Labored Non-Labored Respiratory Depth Normal Normal Respiratory Pattern Blood Pressure Blood Pressure [Right Arm] 174/80 H 174/104 H Blood Pressure Mean Blood Pressure Mean [Right Arm] 111 127 Blood Pressure Position Blood Pressure Position [Right Arm] Pulse Oximetry 96 98 Oxygen Delivery Method Room Air Room Air Sepsis Recent Fever Within 48 Hours Sepsis New/Unexplained Change in Mental Status Sepsis Action Taken by Nursing Laboratory Data 09/16/24 20:31 09/16/24 20:31 Lab Results 09/16/24 09/16/24 09/17/24 Range/Units 20:31 21: 00:25 WBC 8.43 (4.8-10.8) K/ul RBC 4.30 (4.20-5.40) M/uL Hgb 12.8 (12.0-16.0) g/dl Hct 38.3 (37.0-47.0) % MCV 89.1 (80.0-100.0) fL MCH 29.8 (25.0-34.0) pg MCHC 33.4 (32.0-36.0) g/dL RDW Std Deviation 41.4 (36.4-46.3) fL RDW Coeff of Lydia 12.6 (11.5-14.5) % Plt Count 322 (130-400) K/uL MPV 11.4 (9.4-12.4) fL Immature Gran % (Auto) 0.4 % Neut % (Auto) 67.9 % Lymph % (Auto) 21.1 % [place] % (Auto) 8.1 % Eos % (Auto) 2.1 % Baso % (Auto) 0.4 % Neut # (Auto) 5.73 (1.40-6.50) K/uL Lymph # (Auto) 1.78 (1.20-3.40) K/uL [place] # (Auto) 0.68 H (0.11-0.59) K/uL Eos # (Auto) 0.18 (0.00-0.50) K/uL Baso # (Auto) 0.03 (0.00-0.20) K/uL Immature Gran # (Auto) 0.03 (0.01-0.20) K/uL PT 9.9 (9.0-12.0) Seconds INR 0.9 (0.9-1.1) Sodium 136 (136-145) mmol/L Potassium 4.0 (3.5-5.1) mmol/L Chloride 104 (98-107) mmol/L Carbon Dioxide 23 (21-32) mmol/L Anion Gap 9 (3-11) BUN 24 H (6-23) mg/dl Creatinine 1.36 H (0.6-1.2) mg/dl Est Cr Clr Drug Dosing 22.9 ml/min eGFR 37.23 BUN/Creatinine Ratio 17.6 (10-20) Glucose 103 H (70-99(Fasting)) mg/dl Calcium 9.6 (8.6-10.3) mg/dl Magnesium 2.3 (1.7-2.4) mg/dl Total Bilirubin 0.6 (0.2-1.0) mg/dl AST 14 (13-39) U/L ALT 8 (7-52) U/L Alkaline Phosphatase 65 (34-104) U/L Troponin I High Sens 4.2 4.8 (0-14) pg/ml B-Natriuretic Peptide 253 H (0-100) pg/ml Total Protein 7.8 (6.0-8.3) gm/dl Albumin 4.5 (3.4-5.0) gm/dl Globulin 3.3 (2.5-4.0) gm/dl Albumin/Globulin Ratio 1.4 (0.9-2) Lipase 51 (11-82) U/L Urine Color Yellow Urine Appearance Clear (Clear) Urine pH 6.0 (4.5-7.5) Ur Specific [place] 1.009 (1.000-1.030) Urine Protein Negative (Negative) Urine Glucose (UA) Negative (Negative) Urine Ketones Negative (Negative) Urine Blood 1+ H (Negative) Urine Nitrite Negative (Negative) Urine Bilirubin Negative (Negative) Urine Urobilinogen Negative (Negative) Ur Leukocyte Esterase 1+ H (Negative) Urine WBC (Auto) 0-5 (0-5) /hpf Urine RBC (Auto) 0-2 (0-2) /hpf U Hyaline Cast (Auto) 0-2 (0-2) /lpf U Epithel Cells (Auto) 0-2 (0-2) /hpf Urine Bacteria (Auto) None Seen (None Seen) Administered Medications Discontinued Medications Acetaminophen (Acetaminophen 1000 Mg/100 Ml Iv) Confirm Administered Dose 1,000 mg IV .STK-MED ONE Stop: 09/17/24 00:19 Last Admin: 09/17/24 00:19 Dose: 1,000 mg Documented By: ES Al Hydrox/Mg Hydrox/Simethicone (Aluminum/Magnesium Susp 30 Ml Udc) 30 ml PO NOW STA Stop: 09/17/24 00:34 Last Admin: 09/17/24 01:10 Dose: 30 ml Documented By: MARISEL Amlodipine Besylate (Amlodipine Besylate 5 Mg Tab) 5 mg PO NOW ONE Stop: 09/17/24 00:20 Last Admin: 09/17/24 01:10 Dose: 5 mg Documented By: MARISEL Famotidine (Famotidine 20 Mg Tab) 20 mg PO NOW ONE Stop: 09/17/24 00:19 Last Admin: 09/17/24 01:11 Dose: 20 mg Documented By: MARISEL Acetaminophen (Ofirmev) 1,000 mg in 100 mls @ 400 mls/hr IV NOW STA Stop: 09/17/24 00:28 Last Admin: 09/17/24 00:34 Dose: Not Given Documented By: MARISEL Ioversol (Optiray 320 125ml) 125 ml IV ONCE ONE Stop: 09/16/24 23:40 Last Admin: 09/16/24 23:40 Dose: 118 ml Documented By: DEVON Lisinopril (Lisinopril 10 Mg Tab) 30 mg PO NOW STA Stop: 09/17/24 00:19 Last Admin: 09/17/24 01:10 Dose: 30 mg Documented By: MARISEL Metoprolol Tartrate (Metoprolol Tartrate 25 Mg Tab) 25 mg PO NOW STA Stop: 09/17/24 00:19 Last Admin: 09/17/24 01:11 Dose: 25 mg Documented By: MARISEL Morphine Sulfate (Morphine Sulfate 2 Mg/Ml [place]) 2 mg IV NOW STA Stop: 09/16/24 23:13 Last Admin: 09/16/24 23:22 Dose: Not Given Documented By: MARISEL Ondansetron HCl (Ondansetron Inj 2 Mg/Ml 2 Ml Vial) 4 mg IV NOW STA Stop: 09/16/24 23:13 Last Admin: 09/16/24 23:19 Dose: 4 mg Documented By: MARISEL Pantoprazole Sodium (Pantoprazole 40 Mg Tab) 40 mg PO NOW STA Stop: 09/17/24 00:19 Last Admin: 09/17/24 01:10 Dose: 40 mg Documented By: MARISEL Sucralfate (Sucralfate 1 Gm Tab) 1 gm PO NOW STA Stop: 09/17/24 00:39 Last Admin: 09/17/24 01:10 Dose: 1 gm Documented By: Imaging Data Radiologist's Impression: Chest X-Ray 09/16/24 21:04 Exam(s): XR CXR 1 VIEW EXAM: XR Chest, 1 View CLINICAL HISTORY: Reason for exam: Chest pain, nonspecific. TECHNIQUE: Frontal view of the chest. COMPARISON: No relevant prior studies available. FINDINGS: Lungs: The lungs are mildly hyperinflated with a prominent interstitial markings suggesting mild emphysema. No acute focal infiltrate or consolidation is seen. Pleural space: Unremarkable. No pneumothorax. Heart: Possible 6 cm hiatal hernia located behind the heart. No cardiomegaly. Mediastinum: Unremarkable. Normal mediastinal contour. Bones/joints: Unremarkable. No acute fracture. Vasculature: The aortic arch is mildly calcified. Upper abdomen: There is no pneumoperitoneum under the diaphragm. IMPRESSION: 1. The lungs are mildly hyperinflated with a prominent interstitial markings suggesting mild emphysema. No acute focal infiltrate or consolidation is seen. 2. Possible 6 cm hiatal hernia located behind the heart. Electronically signed by: Juan Diego Cisneros MD 09/16/24 22:48 PM Chest CTA 09/16/24 23:12 Exam(s): CTA CHEST IV Amt: 118 ml optiray 320 EXAM: CT Angiography Chest With Intravenous Contrast CLINICAL HISTORY: Reason for exam: Chest Pain, eval for PE. TECHNIQUE: Axial computed tomographic angiography images of the chest with intravenous contrast. CTDI is 11.2 mGy and DLP is 331 mGy-cm. Automated exposure control was utilized for the study. A dose lowering technique was utilized adhering to the principles of ALARA. MIP reconstructed images were created and reviewed. COMPARISON: Chest x-ray from September 16, [address] abdomen and pelvis from October 28, 2021 FINDINGS: Pulmonary arteries: The pulmonary arterial tree is well opacified with contrast. No pulmonary embolism is identified. Aorta: The thoracic aorta is mildly calcified but nondilated. There is no aneurysm or dissection. Lungs: Scattered linear densities in both lung bases may represent subsegmental atelectasis, less likely edema. No focal consolidation is seen. Pleural space: Unremarkable. No significant effusion. No pneumothorax. Heart: Mild cardiomegaly with moderate coronary calcification involve the LAD and circumflex. No pericardial effusion is seen. No evidence of RV dysfunction. Mediastinum: There is a 6 cm hiatal hernia located behind the heart. Bones/joints: Mild degenerative changes and scoliosis in the spine. No fracture or destructive bone lesion is seen. No dislocation. Soft tissues: Unremarkable. Lymph nodes: Unremarkable. No enlarged lymph nodes. IMPRESSION: 1. The pulmonary arterial tree is well opacified with contrast. No pulmonary embolism is identified. 2. The thoracic aorta is mildly calcified but nondilated. There is no aneurysm or dissection. 3. Scattered linear densities in both lung bases may represent subsegmental atelectasis, less likely edema. No focal consolidation is seen. Electronically signed by: Juan Diego Cisneros MD 09/17/24 00:34 AM Discharge Plan Visit Data Chief Complaint: Cardiac Assessment Stated Complaint: CHEST PRESSURE ED Provider: Scotty Miner Discharge Problem: Chest pain Patient Disposition: Admitted As Inpatient Discharge Instructions Interventions: ED Discharge Assessment Last Done: 09/17/24 01:34
[2024-09-17] MEDS ORDERED: NITROGLYCERIN SL 0.4 MG/TAB TAB SL PRN (02:05)
[2024-09-17] MEDS ORDERED: ALUMINUM/MAGNESIUM SUSP 30 ML UDC PO PRN (02:05)
[2024-09-17] MEDS ORDERED: LORazepam 0.5 MG TAB PO PRN (02:05)
[2024-09-17] MEDS ORDERED: TORSEMIDE 10 MG TAB PO SCH (02:05)
[2024-09-17 02:09] VITALS: RESP 18
[2024-09-17 05:57] LABS: Basophils # (auto) 0.03 K/uL (0.00-0.20); Basophils % (auto) 0.4 %; Eosinophils % (auto) 1.3 %; Hematocrit (blood only) 32.3 % (37.0-47.0); Hemoglobin 10.7 g/dl (12.0-16.0); Immature Granulocytes # (auto) 0.03 K/uL (0.01-0.20); Immature Granulocytes % (auto) 0.4 %; Lymphocytes # (auto) 1.19 K/uL (1.20-3.40); Mean Corpuscular Hemoglobin 29.3 pg (25.0-34.0); Mean Corpuscular Hgb Conc 33.1 g/dL (32.0-36.0); Mean Corpuscular Volume 88.5 fL (80.0-100.0); Mean Platelet Volume 10.6 fL (9.4-12.4); Monocytes # (auto) 0.89 K/uL (0.11-0.59); Monocytes % (auto) 11.2 %; Neutrophils # (auto) 5.71 K/uL (1.40-6.50); Neutrophils % (auto) 71.7 %; Platelet Count 253 K/uL (130-400); RDW Coefficient of Variation 12.6 % (11.5-14.5); RDW Standard Deviation 41.1 fL (36.4-46.3); Red Blood Count 3.65 M/uL (4.20-5.40); White Blood Count 7.95 K/ul (4.8-10.8)
[2024-09-17 06:00] LABS: BUN Creatinine Ratio 16.4 (10-20); Calcium 8.8 mg/dl (8.6-10.3); Creatinine Clr Calc Pharmacy 25.4 ml/min; Potassium 4.3 mmol/L (3.5-5.1)
[2024-09-17 06:08] LABS: Troponin I High Sensitivity 7.5 pg/ml (0-14)
[2024-09-17] MEDS: ASPIRIN 81 MG ECTAB PO SCH (08:03)
[2024-09-17] MEDS: CYANOCOBALAMIN (B-12) 500 MCG TABLET PO SCH (08:03)
[2024-09-17] MEDS: amLODIPine BESYLATE 5 MG TAB PO SCH (08:03)
[2024-09-17] MEDS: ROSUVASTATIN CALCIUM 20 MG TAB PO SCH (08:03)
[2024-09-17] MEDS: PANTOprazole 40 MG TAB PO SCH (08:04)
[2024-09-17] MEDS: METOPROLOL TARTRATE 25 MG TAB PO SCH (08:04)
[2024-09-17] MEDS: FAMOTIDINE 20 MG TAB PO SCH (08:04)
[2024-09-17 11:25] VITALS: BP 127/73; PULSE 66; TEMP 98.8; O2SAT 96
--- NOTE | 2024-09-17 13:01 | Electrocardiogram Report ---
Test Reason : Blood Pressure : */* mmHG Vent. Rate : 81 BPM Atrial Rate : 81 BPM P-R Int : 164 ms QRS Dur : 82 ms QT Int : 394 ms P-R-T Axes : 53 1 12 degrees QTcB Int : 457 ms Normal sinus rhythm Cannot rule out Inferior infarct , age undetermined Cannot rule out Anterior infarct (cited on or before 22-Mar-2022) Abnormal ECG When compared with ECG of 13-Jul-2023 15:52, Minimal criteria for Inferior infarct are now Present Nonspecific T wave abnormality now evident in Inferior leads Confirmed by Jerod Raymond ([id number]) on 09/17/2024 1:01:19 PM Referred By: REFERRED SELF Confirmed By: Jerod Raymond
--- NOTE | 2024-09-17 13:08 | Electrocardiogram Report ---
Test Reason : Blood Pressure : */* mmHG Vent. Rate : 66 BPM Atrial Rate : 66 BPM P-R Int : 180 ms QRS Dur : 74 ms QT Int : 418 ms P-R-T Axes : 53 13 43 degrees QTcB Int : 438 ms Normal sinus rhythm Normal ECG When compared with ECG of 16-Sep-2024 23:54, (unconfirmed) Criteria for Anterior infarct are no longer Present ST no longer depressed in Lateral leads Confirmed by Jerod Raymond ([id number]) on 09/17/2024 1:07:50 PM Referred By: REFERRED SELF Confirmed By: Jerod Raymond
--- NOTE | 2024-09-17 13:10 | Electrocardiogram Report ---
Test Reason : Blood Pressure : */* mmHG Vent. Rate : 70 BPM Atrial Rate : 70 BPM P-R Int : 192 ms QRS Dur : 84 ms QT Int : 408 ms P-R-T Axes : 59 5 42 degrees QTcB Int : 440 ms Normal sinus rhythm Normal ECG When compared with ECG of 17-Sep-2024 05:52, (unconfirmed) No significant change was found Confirmed by Jerod Raymond ([id number]) on 09/17/2024 1:09:41 PM Referred By: REFERRED SELF Confirmed By: Jerod Raymond
--- NOTE | 2024-09-17 13:12 | Electrocardiogram Report ---
Test Reason : Blood Pressure : */* mmHG Vent. Rate : 85 BPM Atrial Rate : 85 BPM P-R Int : 170 ms QRS Dur : 84 ms QT Int : 396 ms P-R-T Axes : 59 13 38 degrees QTcB Int : 471 ms Normal sinus rhythm Poor R wave progression, consider anterior HI vs. lead placement vs. LVH Nonspecific ST abnormality Abnormal ECG When compared with ECG of 16-Sep-2024 21:03, (unconfirmed) No significant change was found Confirmed by Jerod Raymond ([id number]) on 09/17/2024 1:12:28 PM Referred By: REFERRED SELF Confirmed By: Jerod Raymond
--- NOTE | 2024-09-17 13:53 | Discharge Summary ---
Discharge Summary Date of Service September 17, 2024 Principal Dx & Hospital Course #1 = Principal Diagnosis (1) Chest pain: 88-year-old female with past medical history significant for dyslipidemia, chronic diastolic CHF, hypertension, CKD stage III, severe mitral regurgitation, constipation, GERD, vitamin D deficiency, osteoporosis, bilateral sensorineural hearing loss, chronic low back pain, panic disorder, CAD status post stent, insomnia who lives alone and ambulates without support comes with chest pain. Patient says since yesterday morning she is having chest pain. In the morning she took 3 nitro and the pain subsided for some time it came back again and she took 3-4 aspirins and it seemed to help. Again the pain came back and she took some Ativan which seemed to help little bit but again pain was coming back and then decided come to the ER. Patient still having pain in the middle of the chest. Hard of hearing. Daughter in the room. No nausea. No sweating. No dizziness. No cough. No fevers. No runny nose or sore throat. No abdominal pain. Normal bowel and bladder movements. Hemodynamics are okay. Chest pain Ongoing since morning Initial troponin negative EKG no acute findings CTA chest no acute findings -echo unremarkable -troponins negative x4 -worse after eating, 2/2 to known GERD -increase famotidine to 4x daily, prn maalox -f/u with GI for consideration of EGD outpatient History of CAD status post stent -On aspirin, statin and beta-reynold Hypertension -On amlodipine, lisinopril and Lopressor -Will monitor GERD -On Protonix and famotidine Chronic diastolic CHF Severe mitral regurgitation -On torsemide 5 mg twice weekly as needed Notes For Next Care Provider 88-year-old female with past medical history significant for dyslipidemia, chronic diastolic CHF, hypertension, CKD stage III, severe mitral regurgitation, constipation, GERD, vitamin D deficiency, osteoporosis, bilateral sensorineural hearing loss, chronic low back pain, panic disorder, CAD status post stent, insomnia who lives alone and ambulates without support comes with chest pain. Patient says since yesterday morning she is having chest pain. Admitted for chest pain r/o. Echo was unremarkable, ECG reassuring, troponins negative x4. Noted pain post eating. Patient needs further outpatient GERD treatment. Discharge with increased famotidine, prn maalox, and f/u with GI for co nsideration of EGD. Patient medically stable for discharge. Medication Changes From Visit -increase famotidine to 4x daily, maalox prn Admission HPI Per Admitting Provider 88-year-old female with past medical history significant for dyslipidemia, chronic diastolic CHF, hypertension, CKD stage III, severe mitral regurgitation, constipation, GERD, vitamin D deficiency, osteoporosis, bilateral sensorineural hearing loss, chronic low back pain, panic disorder, CAD status post stent, insomnia who lives alone and ambulates without support comes with chest pain. Patient says since yesterday morning she is having chest pain. In the morning she took 3 nitro and the pain subsided for some time it came back again and she took 3-4 aspirins and it seemed to help. Again the pain came back and she took some Ativan which seemed to help little bit but again pain was coming back and then decided come to the ER. Patient still having pain in the middle of the chest. Hard of hearing. Daughter in the room. No nausea. No sweating. No dizziness. No cough. No fevers. No runny nose or sore throat. No abdominal pain. Normal bowel and bladder movements. Hemodynamics are okay. Past medical history. As mentioned above Past surgical history. Colonoscopy., Right and left heart cath. Coronary artery dilatation PTCA with stent x 2. Cystoscopy . EGD. [employer] vein ligation of varicose veins. Removal of ovary. Vaginal hysterectomy. Social history. . No smoking. No alcohol use. No drug use. Family history. Brother had leukemia. CABG. Manic depression. CAD. Mother had CAD. Colon cancer. Sister had CABG. Discharge Exam Gen: A&O 3 NAD HEENT: NCAT, EOMI, not icteric. External ears normal. No rhinorrhea. Moist mucous membranes. Neck: Supple, full range of motion, no observable masses, No meningeal sign. Lungs: No Respiratory distress. CV: RRR, no edema. Abdomen: Soft, nondistended, No rebound tenderness. MSK: No joint swelling, no redness. Skin: No rashes, petechiae, lesions. Normal color per patient. Neuro: Normal Gait, Grossly intact. Psych: Appropriate for situation. Updated Medication List Medication Instructions Recorded Confirmed Type aluminum-magnesium hydroxide 200 15 ml PO Q4H PRN dyspepsia #3,000 09/17/24 Rx mg-200 mg/5 mL oral suspension mL (MAG-AL) amlodipine 5 mg tablet 5 mg PO BID 09/17/24 09/17/24 History aspirin 81 mg tablet,delayed 81 mg PO DAILY 09/17/24 09/17/24 History release cyanocobalamin (vitamin B-12) 1,000 mcg PO DAILY 09/17/24 09/17/24 History 1,000 mcg tablet (Vitamin B-12) ergocalciferol (vitamin D2) 1,250 50,000 unit PO WK 09/17/24 09/17/24 History mcg (50,000 unit) capsule (Vitamin D2) famotidine 20 mg tablet 20 mg PO BID 09/17/24 09/17/24 History famotidine 20 mg tablet 20 mg PO Q6 #120 tabs 09/17/24 Rx lisinopril 30 mg tablet 30 mg PO HS 09/17/24 09/17/24 History lorazepam 0.5 mg tablet 0.5 mg PO Q6H PRN Anxiety 09/17/24 09/17/24 History metoprolol tartrate 25 mg tablet 25 mg PO BID 09/17/24 09/17/24 History nitroglycerin 0.4 mg sublingual 0.4 mg sublingual UD 09/17/24 09/17/24 History tablet pantoprazole 40 mg tablet,delayed 40 mg PO BID 09/17/24 09/17/24 History release rosuvastatin 20 mg tablet 20 mg PO DAILY 09/17/24 09/17/24 History torsemide 5 mg tablet 5 mg PO UD 09/17/24 09/17/24 History Hospital Stay Data Consultations 09/16/24 23:17 ED Decision to Admit Stat Diagnostic Imagining Performed 09/16/24 23:12 CT angio chest PE protocol Stat Pending Results Patient Have Any Pending Studies at Discharge: No Discharge Instructions Given to Patient (Per Discharging Provider) 1. Please follow up with GI outpatient for consideration of EGD; these symptoms occur after you eat and your heart imaging/cardiac enzymes were reassuring. 2. Please increase famotidine to 4 times daily. Total Time Total Time Spent Total Time Spent (In Minutes): I spent a total of 35 minutes in direct patient care, including [id number] time with the patient and/or family, reviewing medical records, ordering and reviewing diagnostic tests, and coordinating care with other healthcare providers. This time includes: history taking, physical examination, medical decision making, counseling, ECG interpretation, imaging interpretation, lab interpretation, orders, and education, excluding time spent in the performance of separately billed services.
[2024-09-17] MEDS ORDERED: lisinopril 10 MG TAB PO SCH (21:00)
== END 2024-09-17 14:27 | disposition home or self-care (01) ==
LOC: 4W 20:57 → ED 20:57 → SUATTDRO 09-17 00:37 → 4W 09-17 01:34